=== PATIENT | male | born 1945 | race Caucasian/White ===

== ENCOUNTER → 2016-09-07 | Outpatient (CLI) | payer OTHER ==
[~2016-09-07] MED LIST: AMOX250C3 PO; CALC600T37 PO; CHOL100010 PO
[2016-09-07 17:21] LABS: BASO % 0.2 %; BASO ABS # 0.01 K/uL (0-0.2); COMPLETE YES; EOS % 0.5 %; HEMATOCRIT 43.1 % (42-52); IG% 0.2 %; LYMPH % 29.5 %; LYMPH ABS # 1.29 K/uL (1.2-3.4); MEAN CELL VOLUME 86.5 fL (80-100); MEAN CORPUSCULAR HEMOGLOBIN 28.1 pg (25-34); MEAN CORPUSCULAR HGB CONC 32.5 g/dl (32-36); MEAN PLATELET VOLUME 11.5 fL (7.4-10.4); MONO % 25.6 %; PLATELET COUNT 155 K/uL (130-400); RED BLOOD COUNT 4.98 M/uL (4.7-6.1); WHITE BLOOD COUNT 4.37 K/uL (4.8-10.8)
[2016-09-07 19:17] LABS: ALT/SGPT 26 U/L (12-78); AST/SGOT 23 U/L (15-37); BLOOD UREA NITROGEN 17 mg/dl (7-18); BUN/CREATININE RATIO 17.1 (10-20); CALCIUM 8.9 mg/dl (8.5-10.1); CARBON DIOXIDE 25 mmol/L (21-32); CHLORIDE 113 mmol/L (98-107); GLUCOSE 93 mg/dl (70-99); POTASSIUM 3.6 mmol/L (3.5-5.1); SODIUM 145 mmol/L (136-145)
[2016-09-07 19:22] LABS: ALB/GLOB RATIO 1.2 (0.9-2); ALKALINE PHOSPHATASE 79 U/L (45-117); PROSTATE SPECIFIC ANTIGEN 0.369 ng/ml (0.000-4.000)
== END | disposition home or self-care (01) ==
LOC: C.LABPBG 11:53
PROVIDERS: ATTEND Internal Medicine
DX: R03.0 Elevated blood-pressure reading, without diagnosis of hypertension (principal)

== ENCOUNTER → 2016-09-08 | Outpatient (CLI) | payer OTHER ==
--- NOTE | 2016-09-08 12:18 | DIAGNOSTIC IMAGING REPORT ---
LUMBAR SPINE 5 VIEWS CLINICAL HISTORY: Low back pain. FINDINGS: 5 views of the lumbar spine are compared to a study dated 12/04/2013. The skeletal structures are osteopenic. A moderate compression deformity of L1, a mild superior endplate compression deformity of L3, and a moderate to severe compression deformity of T11 are unchanged from 2014. A mild superior endplate compression deformity L2 and a moderate compression deformity of L4 are age indeterminant but new from 2014. No large retropulsed fragments are seen. Vertebral body alignment is maintained. The transverse and spinous processes are grossly intact. There is no evidence of spondylolysis. Facet arthropathy is present in the mid to lower lumbar region. There is mild to moderate lumbar levocurvature. Small anterior osteophytic are seen throughout. Mild to moderate degenerative disc space narrowing is seen at all levels. The bony pelvis is intact as visualized. Sclerotic change is seen in the sacroiliac joints. A right hip arthroplasty is partially visualized. Cholecystectomy clips are noted. There is a nonobstructed abdominal bowel gas pattern. IMPRESSION: 1. There are age-indeterminant compression deformities of L2 and L4 which are new from 2014. Clinical correlation will be required. 2. Additional chronic compression deformities are described above. 3. Osteopenia, spondylotic change, and scoliosis as above. Dictated: 09/08/2016 12:04 PM Transcribed: 09/08/2016 12:17 PM [email or web address] Electronically signed by: Pelon Taylor M.D. 09/08/2016 12:22 PM Dictated Date/Time: 09/08/2016 12:04 PM
== END | disposition home or self-care (01) ==
LOC: C.RADBC 11:23
PROVIDERS: ATTEND Internal Medicine
DX: M81.0 Age-related osteoporosis without current pathological fracture (principal); M85.88 Other specified disorders of bone density and structure, other site

== ENCOUNTER → 2016-09-17 | Outpatient (CLI) | payer OTHER ==
--- NOTE | 2016-09-17 10:27 | DIAGNOSTIC IMAGING REPORT ---
ORBIT RADIOGRAPHS 3 VIEWS HISTORY: pre-MRI screening. COMPARISON: None. FINDINGS: There are no metallic radiopaque foreign bodies identified within the orbits. IMPRESSION: No metallic radiopaque foreign bodies identified within the orbits. Electronically signed by: Chandana Redding M.D. 09/17/2016 10:25 AM Dictated Date/Time: 09/17/2016 10:24 AM
--- NOTE | 2016-09-17 12:25 | DIAGNOSTIC IMAGING REPORT ---
MRI OF THE LUMBAR SPINE WITHOUT IV CONTRAST CLINICAL HISTORY: Acute on chronic low back pain. Right lower extremity radiculopathy. COMPARISON STUDY: Radiographs of lumbar spine dated 09/08/2016. CT scan of the abdomen and pelvis dated 09/07/2013. TECHNIQUE: MRI of the lumbar spine is performed utilizing various T1 and T2-weighted sequences in the axial and sagittal planes. IV contrast was not administered for this examination. FINDINGS: Lumbar spine: Severe compression deformities of T11 and L1 as well as a mild compression deformity of L3 are similar is appearance to the [address] scan. There is only mild marrow edema within the L1 vertebral body, likely related to a Schmorl's node. There is a mild to moderate superior endplate compression fracture of L2 as well as a moderate compression fracture of L4. These are new from 2014 and both demonstrate significant marrow edema. No retropulsed fragments are identified. The transverse and spinous processes appear intact. There is no evidence of spondylolysis. Intervertebral discs: There is degenerative disc desiccation throughout the lumbar spine. Moderate loss of height is seen at L2-L3. Only mild loss of height is seen at the remaining lumbar levels. Spinal cord: The partially imaged spinal cord is normal in morphology and signal intensity. The conus medullaris terminates at the level of L1. The nerve roots of the cauda equina are normal in morphology. L1-L2: Unremarkable. L2-L3: There is a posterior disc bulge. In conjunction with hypertrophy of the ligamentum flavum this contribute to mild acquired compromise of the central canal. The minimum AP diameter measures 7 mm. There is mild bilateral subarticular stenosis. This may abut the exiting left L2 nerve root. The neural foramina are patent. Facet arthropathy is of no confluence. L3-L4: There is a minimal disc bulge eccentric to the left. There is mild compromise of the central canal, likely on a congenital basis. The minimum AP diameter measures 8 mm. There is mild to moderate right neural foraminal stenosis secondary to facet arthropathy. L4-L5: There is minimal posterior disc bulge. There is no significant acquired compromise of the central canal at this level. Facet arthropathy is of no consequence. The neural foramina are patent. L5-S1: The central canal and neural foramina are patent. Sacrum: The visualized sacrum is normal in morphology and signal intensity. Soft tissues: There is fatty atrophy of the paraspinous and iliopsoas musculature. There is cortical atrophy of the visualized kidneys. Numerous renal cysts are partially imaged bilaterally. The retroperitoneal structures are otherwise grossly unremarkable but incompletely assessed. IMPRESSION: 1. A mild to moderate superior endplate compression fracture of L2 and a moderate compression fracture of L4 are age indeterminant but new from studies performed in 2014. There is significant marrow edema identified in both vertebral bodies suggesting these are acute to subacute. These are likely osteoporotic, and there is no clear evidence of underlying marrow replacement process or destructive bony lesion. Clinical correlation will be required. No retropulsed fragments are identified. 2. Chronic compression fractures of T11, L1, and L3 are similar to previous. Dictated: 09/17/2016 11:43 AM Transcribed: 09/17/2016 12:24 PM [email or web address] Electronically signed by: Pelon Taylor M.D. 09/17/2016 12:26 PM Dictated Date/Time: 09/17/2016 11:43 AM
== END | disposition home or self-care (01) ==
LOC: C.MRI 09:11
PROVIDERS: ATTEND Internal Medicine
DX: M54.5 Low back pain (principal); Z13.5 Encounter for screening for eye and ear disorders

== ENCOUNTER → 2016-11-30 | Outpatient (CLI) | payer OTHER | END | disposition home or self-care (01) | LOC: C.LABPBG 14:25 | PROVIDERS: ATTEND Internal Medicine | DX: Z11.59 Encounter for screening for other viral diseases (principal); E29.1 Testicular hypofunction; E55.9 Vitamin D deficiency, unspecified ==

== ENCOUNTER → 2016-12-11 | Outpatient (CLI) | payer OTHER ==
[2016-12-11 17:49] LABS: URINE APPEARANCE TURBID (CLEAR); URINE BILIRUBIN NEG (NEG); URINE EPITHELIAL CELL AUTO 0-5 /lpf (0-5); URINE NITRITE NEG (NEG); URINE SPECIFIC GRAVITY 1.026 (1.000-1.030); UROBILINOGEN NEG (NEG); ZZUR CULT IF INDIC CLEAN CATCH NO
[2016-12-11 17:50] LABS: MANUAL MICROSCOPIC REQUIRED? NO; REVIEW REQ? NO; URINE COLOR DK YELLOW
== END | disposition home or self-care (01) ==
LOC: C.LABSPEC 13:51
PROVIDERS: ATTEND Physician Assistant
DX: R35.0 Frequency of micturition (principal)

== ENCOUNTER → 2016-12-24 | Outpatient (CLI) | payer OTHER ==
[2016-12-24 17:45] LABS: URINE APPEARANCE CLEAR (CLEAR); URINE BILIRUBIN NEG (NEG); URINE COLOR YELLOW; URINE EPITHELIAL CELL AUTO 0-5 /lpf (0-5); URINE NITRITE NEG (NEG); URINE SPECIFIC GRAVITY 1.025 (1.000-1.030); UROBILINOGEN NEG (NEG); ZZUR CULT IF INDIC CLEAN CATCH NO
[2016-12-24 17:54] LABS: MANUAL MICROSCOPIC REQUIRED? NO; REVIEW REQ? NO
== END | disposition home or self-care (01) ==
LOC: C.LABPBG 14:40
PROVIDERS: ATTEND Physician Assistant
DX: R31.29 Other microscopic hematuria (principal)

== ENCOUNTER → 2017-12-13 | Outpatient (CLI) | payer OTHER ==
[2017-12-13 16:59] LABS: BASO % 0.2 %; BASO ABS # 0.01 K/uL (0-0.2); HEMATOCRIT 40.7 % (42-52); HEMOGLOBIN 13.6 g/dL (14.0-18.0); IG# 0.01 K/uL (0.00-0.02); LYMPH % 35.8 %; LYMPH ABS # 1.45 K/uL (1.2-3.4); MEAN CELL VOLUME 83.9 fL (80-100); MEAN CORPUSCULAR HGB CONC 33.4 g/dl (32-36); MEAN PLATELET VOLUME 11.8 fL (7.4-10.4); MONO % 24.4 %; MONO ABS # 0.99 K/uL (0.11-0.59); NEUT % 39.4 %; NEUT ABS # 1.59 K/uL (1.4-6.5); PLATELET COUNT 130 K/uL (130-400); RED CELL DISTRIBUTION WIDTH CV 13.9 % (11.5-14.5); RED CELL DISTRIBUTION WIDTH SD 42.2 fL (36.4-46.3); WHITE BLOOD COUNT 4.05 K/uL (4.8-10.8)
[2017-12-13 17:34] LABS: ALBUMIN 3.7 gm/dl (3.4-5.0); ALKALINE PHOSPHATASE 59 U/L (45-117); ALT/SGPT 22 U/L (12-78); AST/SGOT 23 U/L (15-37); BLOOD UREA NITROGEN 22 mg/dl (7-18); CALCIUM 8.4 mg/dl (8.5-10.1); CARBON DIOXIDE 20 mmol/L (21-32); CHOLESTEROL 97 mg/dl (0-200); CREATININE 1.01 mg/dl (0.60-1.40); GLUCOSE 78 mg/dl (70-99); LDL CHOLESTEROL CALCULATED 42 mg/dl; POTASSIUM 3.7 mmol/L (3.5-5.1); SODIUM 140 mmol/L (136-145); TOTAL PROTEIN 7.6 gm/dl (6.4-8.2)
== END | disposition home or self-care (01) ==
LOC: C.LABPBG 14:21
PROVIDERS: ATTEND Internal Medicine
DX: M81.0 Age-related osteoporosis without current pathological fracture (principal); E29.1 Testicular hypofunction; D64.9 Anemia, unspecified; N20.0 Calculus of kidney; E55.9 Vitamin D deficiency, unspecified; R82.90 Unspecified abnormal findings in urine

== ENCOUNTER 2019-07-15 10:30 | Inpatient (IN) ==
[2019-07-15] MEDS ORDERED: ALBUT/IPRATROP 3MG/0.5MG NEB 3 ML VIAL NEB ONE (10:39)
[2019-07-15] MEDS ORDERED: SODIUM CHLORIDE 0.9% 500 ML IV ONE (10:40)
[2019-07-15] MEDS ORDERED: ONDANSETRON INJ 2 MG/ML 2 ML VIAL IV STA (10:53)
--- NOTE | 2019-07-15 11:00 | Emergency Department Note ---
History of Present Illness General Chief complaint: Confusion Source: patient, EMS, RN notes reviewed and old records reviewed Mode of arrival: EMS Limitations: altered mental status History of Present Illness Provider complaint: Aletred mental status Onset (ago): day(s) 1 Location: head Associated symptoms: + cough and + fever/chills Treatments prior to arrival: other (oxygen 6 L) This is a 73-year-old male who presents emergency department brought in by EMS over concerns of the patient is altered. The patient's family reports that he has been running a fever along with a productive cough for the past several days. Upon EMSs arrival the patient was found to have a pulse ox of 89%. He was placed on 6 L of oxygen. He has no known contacts of coronavirus and has not been traveling. The patient knows his name but otherwise appears confused. He has no complaints and denies any chest pain or abdominal pain. He is also vomiting upon arrival to the emergency department bile. Home Medications Home Medications Medication Instructions Recorded Confirmed Type tamsulosin 0.4 mg capsule 0.4 mg PO QAM cap 12/12/18 07/15/19 History acyclovir 200 mg PO BID 07/15/19 07/15/19 History atovaquone 1,500 mg PO DAILY 07/15/19 07/15/19 History calcium carbonate-vitamin D3 1 cap PO BID 07/15/19 07/15/19 History [Calcium 600 + D(3)] enasidenib [Idhifa] 100 mg PO QAM 07/15/19 07/15/19 History fluconazole 200 mg PO QAM 07/15/19 07/15/19 History magnesium oxide 400 mg PO QAM 07/15/19 07/15/19 History metoprolol tartrate 12.5 mg PO BID 07/15/19 07/15/19 History Allergies Allergy/AdvReac Type Severity Reaction Status Date / Time Bactrim Allergy Unknown RASH Verified 04/06/16 11:37 sulfamethoxazole Allergy Unknown RASH Verified 07/15/19 12:26 trimethoprim Allergy Unknown RASH Verified 07/15/19 12:26 Past Med/Surg History Medical History Anemia BPH with urinary obstruction Diverticular disease Gross hematuria Hypertension Internal hemorrhoid (Resolved) Kidney stones Osteoporosis (Chronic) SNHL (sensorineural hearing loss) Testicular cancer (Resolved) Tubular adenoma of colon Vertebral compression fracture (Resolved) Vitamin D deficiency Surgical History History of cholecystectomy History of colonoscopy History of herniorrhaphy BL INGUINAL History of orchiectomy History of total hip arthroplasty RIGHT JOSE Status post orchiopexy Family History Mother Breast cancer Family/Other Colorectal cancer Brother Dementia Heart disease Cancer Laryngeal Father Stroke Social History Preferred Language: Wolof Communication Ability: Effective Visual Impairment: No Limitations Hearing Ability: Hard of Hearing Manager Education Required: No Beliefs That Will Affect Care: None marital status: Current Living Situation: Spouse current occupational status: employed current occupation: Retail Feels Safe at Home: Yes Smoking Status: Never smoker Second Hand Exposure: No ; Hx Alcohol Use: No Hx Substance Use: No Review of Systems A total of 10 systems reviewed and were otherwise negative Physical Exam Vital Signs Vital Signs - 24 hr 07/15/19 10:38 07/15/19 10:39 07/15/19 10:54 Temperature 37.7 C H Temperature Source Oral Rectal Temperature - Monitor Source 2 Pulse Rate 90 Pulse Rate [Radial] 123 H Pulse Rate from SpO2 Sensor Respiratory Rate 20 18 Respiratory Effort / Characteristics Non-Labored Spontaneous Non-Labored Spontaneous Respiratory Depth Normal Respiratory Pattern Regular Blood Pressure 142/81 H Blood Pressure Mean 101 Blood Pressure Position Sitting Pulse Oximetry 95 95 96 Oxygen Delivery Method Room Air Room Air Room Air Sepsis Recent Fever Within 48 Hours Yes Sepsis New/Unexplained Change in Mental Status No Sepsis Action Taken by Nursing No Action Required 07/15/19 11:00 07/15/19 11:32 07/15/19 12:00 Temperature Temperature Source Rectal Temperature - Monitor Source 2 Pulse Rate 89 98 H 129 H Pulse Rate [Radial] Pulse Rate from SpO2 Sensor 120 H 142 H Respiratory Rate 22 22 25 H Respiratory Effort / Characteristics Respiratory Depth Respiratory Pattern Blood Pressure 143/87 H 111/73 116/78 Blood Pressure Mean 103 86 108 Blood Pressure Position Pulse Oximetry 100 100 94 Oxygen Delivery Method Nebulizer Nebulizer Room Air Sepsis Recent Fever Within 48 Hours Sepsis New/Unexplained Change in Mental Status Sepsis Action Taken by Nursing 07/15/19 13:00 07/15/19 13:10 Temperature Temperature Source Rectal Temperature - Monitor Source 2 38.6 C H Pulse Rate 134 H Pulse Rate [Radial] Pulse Rate from SpO2 Sensor 136 H Respiratory Rate 19 Respiratory Effort / Characteristics Respiratory Depth Respiratory Pattern Blood Pressure 157/76 H Blood Pressure Mean 103 Blood Pressure Position Pulse Oximetry 96 Oxygen Delivery Method Sepsis Recent Fever Within 48 Hours Sepsis New/Unexplained Change in Mental Status Sepsis Action Taken by Nursing GENERAL: Patient is a healthy-appearing well-nourished male HEAD: Normocephalic atraumatic EYES: Ocular movements intact pupils equal and react to light OROPHARYNX mucous membranes are moist no exudates present no erythema or edema present NECK: Supple no nuchal rigidity CHEST: Good equal expansion LUNGS: Clear and equal to auscultation CARDIAC: Normal S1 and S2 ABDOMEN: Soft nontender no guarding BACK: No CVA tenderness EXTREMITIES: No pain upon palpation normal muscle strength in all groups no clubbing cyanosis or edema NEURO: Patient is following commands and knows who he is. Does not know where or date Cranial Nerves 2-12 grossly intact Course Administered Medications Ioversol (Optiray 320 125ml) 120 ml IV ONCE PRN PRN Reason: Interaction Checking Stop: 07/19/19 12:20 Last Admin: 07/15/19 12:21 Dose: 120 ml Documented by: [id number] Discontinued Medications Albuterol (Duoneb) 12 ml NEB ONE ONE Stop: 07/15/19 10:40 Last Admin: 07/15/19 10:53 Dose: 12 ml Documented by: [id number] Sodium Chloride (Nss) 500 mls @ 999 mls/hr IV .Q31M ONE Stop: 07/15/19 11:10 Last Infusion: 07/15/19 12:45 Dose: 0 mls/hr Documented by: [id number] Admin: 07/15/19 11:58 Dose: 999 mls/hr Documented by: [id number] Sodium Chloride (Nss 1000ml) 1,000 mls @ 999 mls/hr IV .Q1H1M ONE Stop: 07/15/19 12:50 Last Admin: 07/15/19 11:58 Dose: 999 mls/hr Documented by: [id number] Piperacillin Sod/Tazobactam Sod (Zosyn) 4.5 gm in 120 mls @ 240 mls/hr IV NOW ONE Stop: 07/15/19 13:11 Last Admin: 07/15/19 13:23 Dose: 240 mls/hr Documented by: [id number] Daptomycin 300 mg/ Syringe 6 mls @ 3 mls/min IV NOW ONE; Protocol Stop: 07/15/19 12:43 Last Admin: 07/15/19 13:07 Dose: 3 mls/min Documented by: [id number] Acetaminophen (Ofirmev) 1,000 mg in 100 mls @ 400 mls/hr IV NOW STA Stop: 07/15/19 13:12 Last Infusion: 07/15/19 13:32 Dose: 0 mls/hr Documented by: [id number] Admin: 07/15/19 13:15 Dose: 400 mls/hr Documented by: [id number] Ondansetron HCl (Zofran) 4 mg IV NOW STA Stop: 07/15/19 10:54 Last Admin: 07/15/19 12:00 Dose: 4 mg Documented by: [id number] Potassium Chloride (Klor-Con M20) 40 meq PO NOW STA Stop: 07/15/19 12:05 Last Admin: 07/15/19 12:55 Dose: 40 meq Documented by: [id number] Critical Care Time I have personally spent greater than 90 minutes of critical care time in the direct management of this patient. This includes bedside care, interpretation of diagnostic studies, and testing, discussion with consultants, patient, and family members, and other required patient management activities. This 90 minutes is in excess of all separately billable procedures. Medical Decision Making Differential Diagnosis Infection, dehydration, metabolic abnormality, hypo/hyperglycemia, electrolyte disturbance, anemia, hypoxia, cardiac sources, intracerebral event, toxicologic, neurologic, as well as other pathologies. Medical Records Attestation: I reviewed the patient's medical records. Home Medications Current Medication List: was personally reviewed by me Laboratory Data Attestation: I reviewed the patient's lab results. Result diagrams: 07/15/19 11:56 07/15/19 11:56 Lab Results 07/15/19 07/15/19 07/15/19 Range/Units 10:45 11:49 11:56 WBC RBC Hgb POC Hgb 12.9 L (14.0-18.0) g/dl Hct POC Hct 38 L (42-52) % MCV MCH MCHC RDW Std Deviation RDW Coeff of Cecilia Plt Count MPV Immature Gran % (Auto) Neut % (Auto) Lymph % (Auto) Petroleum % (Auto) Eos % (Auto) Baso % (Auto) Immature Gran # (Auto) Neut # (Auto) Lymph # (Auto) Petroleum # (Auto) Eos # (Auto) Baso # (Auto) Absolute Nucleated RBC Nucleated RBC % (auto) Neutrophils % (Manual) Band Neutrophils % Lymphocytes % (Manual) Prolymphocyte % Reactive Lymphs % (Man) Monocytes % (Manual) Eosinophils % (Manual) Basophils % (Manual) Metamyelocytes % (Man) Myelocytes % (Man) Promyelocytes % (Man) Blast Cells % (Manual) Plasma Cell % (Manual) Other Cells % Nucleated RBC % Neutrophils # (Manual) Band Neutrophils # Total Absolute Neuts Lymphocytes # (Manual) Prolymphocyte # Reactive Lymphs # Total Abs Lymphocytes Monocytes # (Manual) Eosinophils # (Manual) Basophils # (Manual) Metamyelocytes # (Man) Myelocytes # (Manual) Promyelocytes # (Man) Blast Cells # (Man) Plasma Cell # (Manual) Other Cells # Nucleated RBCs # (Man) Hypersegmented Neuts Hyposegmented Neuts Hypogranular Neuts Large Granular Lymphs # Lrg Granular Lymphs Hairy Cells Smudge Cells Toxic Granulation Toxic Vacuolation Dohle Bodies Bertin Rods Platelet Estimate Hypogranular Platelets Clumped Platelets Giant Platelets Platelet Satelliting RBC Morphology Polychromasia Hypochromasia Poikilocytosis Basophilic Stippling Anisocytosis Microcytosis Macrocytosis Spherocytes Pappenheimer Bodies Sickle Cells Target Cells Tear Drop Cells Ovalocytes Stomatocytes Vela-Montegut Bodies Echinocytes Acanthocytes (Spur) Rouleaux RBC Agglutinates Schistocytes RBC Morph Comment Sezary Cell POC Sodium 141 (135-144) mmol/L Sodium 141 (136-145) mmol/L POC Potassium 3.3 (3.3-5.0) mmol/L Potassium 3.1 L (3.5-5.1) mmol/L POC Chloride 104 (101-112) mmol/L Chloride 108 H (98-107) mmol/L Carbon Dioxide 24 (21-32) mmol/L POC Total CO2 25 (24-31) mEq/l Anion Gap 9.0 (3-11) POC Anion Gap 17.0 (16-25) mmol/L POC BUN 19 H (7-18) mg/dl BUN 20 H (7-18) mg/dl Creatinine 1.34 (0.6-1.4) mg/dl POC Creatinine 1.0 (0.6-1.3) mg/dl Est Cr Clr Drug Dosing 37.5 ml/min Est GFR ( Amer) 60.1 Est GFR (Non-Af Amer) 51.8 BUN/Creatinine Ratio 15.3 (10-20) Glucose 174 H (70-99) mg/dl POC Glucose (other) 142 H (70-99) mg/dl Calcium 7.6 L (8.5-10.1) mg/dl POC Ioniz Calcium Adriana 0.96 L (1.12-1.32) mmol/l Total Bilirubin 2.6 H (0.2-1) mg/dl AST 22 (15-37) U/L ALT 17 (12-78) U/L Alkaline Phosphatase 109 (45-117) U/L Total Creatine Kinase 65 (39-308) U/L CK-MB (CK-2) < 1.0 (0.5-3.6) ng/ml CK/CKMB % Calc TNP Troponin I 0.033 (0-0.045) ng/ml NT-Pro-B Natriuret Pep 4093 H (0-900) pg/ml Total Protein 6.7 (6.4-8.2) gm/dl Albumin 2.7 L (3.4-5.0) gm/dl Globulin 4.0 (2.5-4.0) gm/dl Albumin/Globulin Ratio 0.7 L (0.9-2) Procalcitonin (0-0.5) ng/ml TSH 1.570 (0.300-4.500) uIu/ml Influenza Type A (PCR) Neg for Influ A (Neg) Influenza Type B (PCR) Neg for Influ B (Neg) 07/15/19 07/15/19 07/15/19 Range/Units 11:56 11:56 11:56 WBC Cancelled 30.22 H* RBC Cancelled 3.18 L Hgb Cancelled 11.7 L POC Hgb (14.0-18.0) g/dl Hct Cancelled 35.1 L POC Hct (42-52) % MCV Cancelled 110.4 H MCH Cancelled 36.8 H MCHC Cancelled 33.3 RDW Std Deviation Cancelled 60.3 H RDW Coeff of Cecilia Cancelled 15.2 H Plt Count Cancelled 229 MPV Cancelled 9.7 Immature Gran % (Auto) Cancelled 0.6 Neut % (Auto) Cancelled 74.2 Lymph % (Auto) Cancelled 11.9 Petroleum % (Auto) Cancelled 13.2 Eos % (Auto) Cancelled 0.0 Baso % (Auto) Cancelled 0.1 Immature Gran # (Auto) Cancelled 0.17 H Neut # (Auto) Cancelled 22.42 H Lymph # (Auto) Cancelled 3.61 H Petroleum # (Auto) Cancelled 3.99 H Eos # (Auto) Cancelled 0.00 Baso # (Auto) Cancelled 0.03 Absolute Nucleated RBC Cancelled Nucleated RBC % (auto) Cancelled Neutrophils % (Manual) Cancelled Band Neutrophils % Cancelled Lymphocytes % (Manual) Cancelled Prolymphocyte % Cancelled Reactive Lymphs % (Man) Cancelled Monocytes % (Manual) Cancelled Eosinophils % (Manual) Cancelled Basophils % (Manual) Cancelled Metamyelocytes % (Man) Cancelled Myelocytes % (Man) Cancelled Promyelocytes % (Man) Cancelled Blast Cells % (Manual) Cancelled Plasma Cell % (Manual) Cancelled Other Cells % Cancelled Nucleated RBC % Cancelled Neutrophils # (Manual) Cancelled Band Neutrophils # Cancelled Total Absolute Neuts Cancelled Lymphocytes # (Manual) Cancelled Prolymphocyte # Cancelled Reactive Lymphs # Cancelled Total Abs Lymphocytes Cancelled Monocytes # (Manual) Cancelled Eosinophils # (Manual) Cancelled Basophils # (Manual) Cancelled Metamyelocytes # (Man) Cancelled Myelocytes # (Manual) Cancelled Promyelocytes # (Man) Cancelled Blast Cells # (Man) Cancelled Plasma Cell # (Manual) Cancelled Other Cells # Cancelled Nucleated RBCs # (Man) Cancelled Hypersegmented Neuts Cancelled Hyposegmented Neuts Cancelled Hypogranular Neuts Cancelled Large Granular Lymphs Cancelled # Lrg Granular Lymphs Cancelled Hairy Cells Cancelled Smudge Cells Cancelled Toxic Granulation Cancelled Toxic Vacuolation Cancelled Dohle Bodies Cancelled Bertin Rods Cancelled Platelet Estimate Cancelled Hypogranular Platelets Cancelled Clumped Platelets Cancelled Giant Platelets Cancelled Platelet Satelliting Cancelled RBC Morphology Cancelled Polychromasia Cancelled Hypochromasia Cancelled Poikilocytosis Cancelled Basophilic Stippling Cancelled Anisocytosis Cancelled Microcytosis Cancelled Macrocytosis Cancelled Present Spherocytes Cancelled Pappenheimer Bodies Cancelled Sickle Cells Cancelled Target Cells Cancelled Tear Drop Cells Cancelled Ovalocytes Cancelled Stomatocytes Cancelled Vela-Montegut Bodies Cancelled Echinocytes Cancelled Acanthocytes (Spur) Cancelled Rouleaux Cancelled RBC Agglutinates Cancelled Schistocytes Cancelled RBC Morph Comment Cancelled Sezary Cell Cancelled POC Sodium (135-144) mmol/L Sodium (136-145) mmol/L POC Potassium (3.3-5.0) mmol/L Potassium (3.5-5.1) mmol/L POC Chloride (101-112) mmol/L Chloride (98-107) mmol/L Carbon Dioxide (21-32) mmol/L POC Total CO2 (24-31) mEq/l Anion Gap (3-11) POC Anion Gap (16-25) mmol/L POC BUN (7-18) mg/dl BUN (7-18) mg/dl Creatinine (0.6-1.4) mg/dl POC Creatinine (0.6-1.3) mg/dl Est Cr Clr Drug Dosing ml/min Est GFR ( Amer) Est GFR (Non-Af Amer) BUN/Creatinine Ratio (10-20) Glucose (70-99) mg/dl POC Glucose (other) (70-99) mg/dl Calcium (8.5-10.1) mg/dl POC Ioniz Calcium Adriana (1.12-1.32) mmol/l Total Bilirubin (0.2-1) mg/dl AST (15-37) U/L ALT (12-78) U/L Alkaline Phosphatase (45-117) U/L Total Creatine Kinase (39-308) U/L CK-MB (CK-2) (0.5-3.6) ng/ml CK/CKMB % Calc Troponin I (0-0.045) ng/ml NT-Pro-B Natriuret Pep (0-900) pg/ml Total Protein (6.4-8.2) gm/dl Albumin (3.4-5.0) gm/dl Globulin (2.5-4.0) gm/dl Albumin/Globulin Ratio (0.9-2) Procalcitonin 0.35 (0-0.5) ng/ml TSH (0.300-4.500) uIu/ml Influenza Type A (PCR) (Neg) Influenza Type B (PCR) (Neg) Imaging Data Radiologist's Impression: [facility], [place] [phone] XRay Report Patient: MARY VILLALOBOS HAdmit Date: 07/15/19 MR#: [id number]: [address] Acct ID:[id number]: Date: [address] [place] [address] Zip: [place] [id number] Age: 73Location: ED Sex: M Room/Bed: Att Phy:Diagnosis: CONFUSION Jessi Phy: Dustin Butt MDService Date: 07/15/19 Fam Phy:Interpreting Phy: Chandana Redding MD Admit Phy: Ordering Phy: Joni Lynne MD cc: ~ XR chest 1V portable HISTORY: weakness COMPARISON: Chest 04/30/2018. FINDINGS: Interval development of a small left pleural effusion and left basilar densities. The heart remains mildly enlarged. No pneumothorax. The right lung is clear. No evidence for pulmonary edema. IMPRESSION: Interval development of a small left pleural effusion and left basilar den sities. ACT 112: Negative or not required by law. Electronically signed by: Chandana Redding M.D. 07/15/2019 11:09 AM Dictated: 07/15/19 1108 Transcribed: 07/15/19 1108 [facility], [place] [phone] CT Scan Report Patient: MARY VILLALOBOS HAdmit Date: 07/15/19 MR#: [id number]: [address] Acct ID:[id number]: Date: [address] [place] [address] Zip: [place] [address] Age: 73Location: ED Sex: M Room/Bed: Att Phy:Diagnosis: CONFUSION Jessi Phy: Dustin Butt MDService Date: 07/15/19 Fam Phy:Interpreting Phy: Chandana Redding MD Admit Phy: Ordering Phy: Joni Lynne MD cc: ~ HEAD CT NONCONTRAST CT DOSE: 921.40 mGy.cm HISTORY: Altered mental status. TECHNIQUE: Multiaxial CT images of the head were performed without the use of intravenous contrast. Automated exposure control was utilized for this study. A dose lowering technique was utilized adhering to the principles of ALARA. Comparison: None. Findings: The paranasal sinuses and mastoid air cells are clear. The calvarium and skull base are intact. There is no mass, hematoma, midline shift, acute infarct. White matter hypodensity is nonspecific but suggestive of microvascular ischemic change. The ventricles and sulci demonstrate mild age-related involutional changes. Impression: No acute intracranial abnormality. Atrophy and microvascular ischemic changes. ACT 112: Negative or not required by law. Electronically signed by: Chandana Redding M.D. 07/15/2019 12:22 PM Dictated: 07/15/19 1218 Transcribed: 07/15/19 1218 Patient: MARY VILLALOBOS HAdmit Date: 07/15/19 MR#: [id number]: [address] Acct ID:[id number]: Date: [address] [place] [address] Zip: [place] [address] Age: 73Location: ED Sex: M Room/Bed: Att Phy:Diagnosis: CONFUSION Jessi Phy: Dustin Butt MDService Date: 07/15/19 [facility] Phy:Interpreting Phy: Chandana Redding MD Admit Phy: Ordering Phy: Joni Lynne MD cc: ~ ABDOMEN AND PELVIS CT WITH IV CONTRAST CT DOSE: HISTORY: Pt c/o emesis TECHNIQUE: Multiaxial CT images of the abdomen and pelvis were performed following the use of intravenous contrast. A dose lowering technique was utilized adhering to the principles of ALARA. COMPARISON STUDY: Abdomen and pelvis CT 04/30/2018. FINDINGS: Interval development of a moderate to large pericardial effusion and s mall bilateral pleural effusions. Please refer to the same day chest CT for further evaluation of the lung bases. Cholecystectomy. The liver, spleen, adrenal glands, and pancreas are unremarkable. Bilateral nephrolithiasis. No hydronephrosis. There are also multiple stones within the bilateral renal pelvis sees. This has progressed in the interval. A few hypodense lesions within the left kidney remains stable. No retroperitoneal lymphadenopathy. Normal caliber abdominal aorta. The bladder and pelvic structures are not well visualized due to the metallic artifact from the right hip prosthesis. Multiple compression deformities from T11 through L4 are again noted. Are likely old. The questionab le 2.5 cm lytic lesion within the L4 vertebral body also remains unchanged dating back to 2018 examination. Therefore is less likely to represent an aggressive lesion. The main portal vein is patent. The visualized bladder appears unremarkable. No dilated loops of bowel to suggest an obstruction. There are few nondilated fluid-filled loops of small bowel seen within the abdomen. However, no transition point identified. Mild thickening versus underdistention within the sigmoid colon and rectum. A few colonic diverticula. No evidence for diverticulitis. There is again noted asymmetric soft tissue thickening within the right seminal vesicle measuring up to 3 cm in thickness. This is indetermina te but remain stable. IMPRESSION: 1. Moderate to large pericardial effusion and small bilateral pleural effusions. Please refer to the same day chest CT for further evaluation of the lung bases. 2. Questionable thickening versus underdistention of the sigmoid colon and rectum. This could represent a low-grade grade proctocolitis. 3. No evidence for bowel obstruction. 4. Bilateral nephrolithiasis. No hydronephrosis. 5. No change in the chronic compression deformities within the lower thoracic a nd lumbar spine. 6. Stable 3 cm focal area of soft tissue thickening in the region of the right seminal vesicle. This is indeterminate but is present dating back to at least 2013. ACT 112: Negative or not required by law. Electronically signed by: Chandana Redding M.D. 07/15/2019 12:48 PM Dictated: 07/15/19 1235 Transcribed: 07/15/19 1235 [facility], [place] [phone] CT Scan Report Patient: MARY VILLALOBOS Date: 07/15/19 MR#: [id number]: [address] Acct ID:[id number]: [facility] Zip: [place] [address] Age: 73Location: ED Sex: M Room/Bed: Att Phy:Diagnosis: CONFUSION Jessi Phy: Dustin Butt MDService Date: 07/15/19 [facility] Phy:Interpreting Phy: Chandana Redding MD Admit Phy: Ordering Phy: Joni Lynne MD cc: ~ CHEST CTA for PULMONARY ARTERIES CT DOSE: 836.29 mGy.cm HISTORY: Cough. Fever. TECHNIQUE: Multiaxial CT images of the chest were performed following the intra venous administration of contrast to evaluate the pulmonary arteries. Maximal intensity projection images were also obtained. A dose lowering technique was utilized adhering to the principles of ALARA. COMPARISON STUDY: None. FINDINGS: Mild to moderate thoracic and upper lumbar spine compression deformities are likely old. Tortuous and normal caliber thoracic aorta with no evidence for dissection. Moderate to large pericardial effusion measuring a maximal thickness anteriorly of 2.7 cm. This results in mild mass effect along the heart. Developing cardiac tamponade cannot be excluded. Small left and trace right pleural effusions are noted. The majority of the bilateral lower lobe segmental and subsegmental pulmonary arteries are nondiagnostic due to motion artifact. However, the remaining pulmonary arteries show no filling defects to suggest pulmonary embolus. Please refer to the same day abdomen and pelvis CT for further evaluation of the abdominal structures. No mediastinal or hilar lymphadenopathy. Normal esophagus. No suspicious lytic are blastic osseous lesions. Old, healed left posterior rib fractures. The central airways are patent. No pneumothorax. Consolidation throughout the majority of the left lower lobe. This nonspecific but favors compressive atelectasis from the pleural effusion. A pneumonia could also have a similar appearance in the appropriate clinical setting. Small focal density within the base of the right middle lobe may also represent atelectasis. Consolidation within the right lower lobe posteriorly also favors compressive atelectasis. IMPRESSION: 1. No evidence for pulmonary embolus with limitations as described above. 2. Moderate to large pericardial effusion with associated mild mass effect along the heart. A developing cardiac tamponade cannot be excluded. Clinical correlation recommended. 3. Small left and trace right pleural effusions. 4. Bilateral lower lobe consolidation which favors compressive atelectasis from the pleural effusions. A pneumonia could also have a similar appearance in the appropriate clinical setting. ACT 112: Negative or not required by law. Electronically signed by: Chandana Redding M.D. 07/15/2019 12:35 PM Dictated: 07/15/19 1227 Transcribed: 07/15/19 1227 ECG Data Attestation: I personally reviewed and interpreted this ECG as follows: Indication: + altered mental status Rate (beats per minute): 123 Rhythm: + sinus tachycardia ECG [place]: + Normal ECG ST segments: no ST depression and no ST elevation ECG Findings: + Q waves (Inferior, anterior) Comparison ECG Date: from (02/07/2018) Change: the following changes noted (New anterior infarct) MDM Narrative "Cardiac monitoring: An order was placed for continuous cardiac monitoring. The monitor shows a rate of 120 with Sinus tachycardia rhythm. This is a 73-year-old male who presents to the emergency department with fever. The patient has had a stem cell transplant previously performed at [facility]. He has a white blood cell count here today of 30,000. The patient appears clinically dehydrated therefore he was given 30 mL's per kilogram of fluid. He was started on broad-spectrum antibiotics including Zosyn Levaquin and daptomycin. Because of the patient's complex medical history I did discuss the case with the oncologist on-call at [facility] who readily accepted the patient. Patient's CAT scan of his chest is concerning for pericardial effusion. I did discuss all these findings with the patient's . He has had no sick contacts and no recent travel. Family was in agreement with the treatment plan. Impression & Plan Fever, Acute myelogenous leukemia, Acute pericardial effusion Discharge Plan Visit Data Chief Complaint: Confusion ED Provider: Joni Lynne Discharge Problem: Fever, Acute myelogenous leukemia, Acute pericardial effusion Forms Stand Alone Forms: My [facility] Prescriptions Prescriptions: No Action tamsulosin 0.4 mg capsule 0.4 mg PO QAM RF: 0 fluconazole 200 mg tablet 200 mg PO QAM RF: 0 acyclovir 200 mg capsule 200 mg PO BID RF: 0 atovaquone 750 mg/5 mL suspension 1,500 mg PO DAILY RF: 0 metoprolol tartrate 25 mg tablet 12.5 mg PO BID RF: 0 Idhifa 100 mg tablet 100 mg PO QAM RF: 0 Calcium 600 + D(3) 600 mg calcium- 200 unit Capsule 1 cap PO BID RF: 0 magnesium oxide 400 mg magnesium Tablet 400 mg PO QAM RF: 0 Discharge Problem: Fever Qualifiers: Fever type: unspecified Qualified Code(s): R50.9 - Fever, unspecified Acute myelogenous leukemia Qualifiers: Leukemia Active/Remission status: without remission Qualified Code(s): C92.00 - Acute myeloblastic leukemia, not having achieved remission
--- NOTE | 2019-07-15 11:10 | XRay Report ---
XR chest 1V portable HISTORY: weakness COMPARISON: Chest 04/30/2018. FINDINGS: Interval development of a small left pleural effusion and left basilar densities. The heart remains mildly enlarged. No pneumothorax. The right lung is clear. No evidence for pulmonary edema. IMPRESSION: Interval development of a small left pleural effusion and left basilar densities. ACT 112: Negative or not required by law. Electronically signed by: Chandana Redding M.D. 07/15/2019 11:09 AM
[2019-07-15 11:40] LABS: Influenza A virus by PCR Neg for Influ A (Neg); Influenza B virus by PCR Neg for Influ B (Neg)
[2019-07-15] MEDS ORDERED: SODIUM CHLORIDE 0.9% 1000ML 1,000 ML IV ONE ×2 (11:50→14:14)
[2019-07-15 12:02] LABS: iSTAT Hemoglobin 12.9 g/dl (14.0-18.0); iSTAT Ionized Calcium 0.96 mmol/l (1.12-1.32); iSTAT Potassium 3.3 mmol/L (3.3-5.0)
[2019-07-15] MEDS ORDERED: POTASSIUM CHLORIDE 20 MEQ TABCR PO STA (12:04)
[2019-07-15] MEDS ORDERED: OPTIRAY 320 125ml IV PRN (12:21)
[2019-07-15 12:23] LABS: Alanine Aminotransferase 17 U/L (12-78); Albumin Level 2.7 gm/dl (3.4-5.0); Aspartate Aminotransferase 22 U/L (15-37); BUN Creatinine Ratio 15.3 (10-20); Blood Urea Nitrogen 20 mg/dl (7-18); Calcium 7.6 mg/dl (8.5-10.1); Carbon Dioxide 24 mmol/L (21-32); Chloride 108 mmol/L (98-107); Creatinine Clr Calc Pharmacy 37.5 ml/min; Est GFR (African American) 60.1; Est GFR (Non-African American) 51.8; Glucose 174 mg/dl (70-99); Potassium 3.1 mmol/L (3.5-5.1); Sodium 141 mmol/L (136-145)
--- NOTE | 2019-07-15 12:24 | CT Scan Report ---
HEAD CT NONCONTRAST CT DOSE: 921.40 mGy.cm HISTORY: Altered mental status. TECHNIQUE: Multiaxial CT images of the head were performed without the use of intravenous contrast. A utomated exposure control was utilized for this study. A dose lowering technique was utilized adheri ng to the principles of ALARA. Comparison: None. Findings: The paranasal sinuses and mastoid air cells are clear. The calvarium and skull base are int act. There is no mass, hematoma, midline shift, acute infarct. White matter hypodensity is nonspecifi c but suggestive of microvascular ischemic change. The ventricles and sulci demonstrate mild age-rela scotty involutional changes. Impression: No acute intracranial abnormality. Atrophy and microvascular ischemic changes. ACT 112: Negative or not required by law. Electronically signed by: Chandana Redding M.D. 07/15/2019 12:22 PM
[2019-07-15 12:33] LABS: Albumin Globulin Ratio 0.7 (0.9-2); Alkaline Phosphatase 109 U/L (45-117); Bilirubin,Total 2.6 mg/dl (0.2-1); Creatine Kinase 65 U/L (39-308); Creatine Kinase MB < 1.0 ng/ml (0.5-3.6); NT Pro B Type Natriuretic Pept 4093 pg/ml (0-900); Total Protein 6.7 gm/dl (6.4-8.2); Troponin I 0.033 ng/ml (0-0.045)
--- NOTE | 2019-07-15 12:36 | CT Scan Report ---
CHEST CTA for PULMONARY ARTERIES CT DOSE: 836.29 mGy.cm HISTORY: Cough. Fever. TECHNIQUE: Multiaxial CT images of the chest were performed following the intravenous administration of contrast to evaluate the pulmonary arteries. Maximal intensity projection images were also obtaine d. A dose lowering technique was utilized adhering to the principles of ALARA. COMPARISON STUDY: None. FINDINGS: Mild to moderate thoracic and upper lumbar spine compression deformities are likely old. To rtuous and normal caliber thoracic aorta with no evidence for dissection. Moderate to large pericardi al effusion measuring a maximal thickness anteriorly of 2.7 cm. This results in mild mass effect elen g the heart. Developing cardiac tamponade cannot be excluded. Small left and trace right pleural effu sions are noted. The majority of the bilateral lower lobe segmental and subsegmental pulmonary arteri es are nondiagnostic due to motion artifact. However, the remaining pulmonary arteries show no fillin g defects to suggest pulmonary embolus. Please refer to the same day abdomen and pelvis CT for furthe r evaluation of the abdominal structures. No mediastinal or hilar lymphadenopathy. Normal esophagus. No suspicious lytic are blastic osseous lesions. Old, healed left posterior rib fractures. The centra l airways are patent. No pneumothorax. Consolidation throughout the majority of the left lower lobe. This nonspecific but favors compressive atelectasis from the pleural effusion. A pneumonia could also have a similar appearance in the appropriate clinical setting. Small focal density within the base o f the right middle lobe may also represent atelectasis. Consolidation within the right lower lobe pos teriorly also favors compressive atelectasis. IMPRESSION: 1. No evidence for pulmonary embolus with limitations as described above. 2. Moderate to large pericardial effusion with associated mild mass effect along the heart. A develop ing cardiac tamponade cannot be excluded. Clinical correlation recommended. 3. Small left and trace right pleural effusions. 4. Bilateral lower lobe consolidation which favors compressive atelectasis from the pleural effusions . A pneumonia could also have a similar appearance in the appropriate clinical setting. ACT 112: Negative or not required by law. Electronically signed by: Chandana Redding M.D. 07/15/2019 12:35 PM
[2019-07-15 12:41] LABS: Hematocrit (blood only) 35.1 % (42-52); Hemoglobin 11.7 g/dL (14.0-18.0); Mean Corpuscular Hemoglobin 36.8 pg (25-34); Mean Corpuscular Hgb Conc 33.3 g/dL (32-36); Mean Corpuscular Volume 110.4 fL (80-100); Mean Platelet Volume 9.7 fL (7.4-10.4); Platelet Count 229 K/uL (130-400); RDW Coefficient of Variation 15.2 % (11.5-14.5); RDW Standard Deviation 60.3 fL (36.4-46.3); Red Blood Count 3.18 M/uL (4.7-6.1); White Blood Count 30.22 K/uL (4.8-10.8)
[2019-07-15] MEDS ORDERED: PIPERACILLIN/TAZOBACTAM 4.5 GM/120 ML BAG IV ONE (12:42)
[2019-07-15] MEDS ORDERED: PIPERACILL/TAZOBAC CONSULT ACTIVE PRN (12:42)
[2019-07-15] MEDS ORDERED: DAPTOmycin 300 MG in SYRINGE 0 ML IV ONE (12:42)
[2019-07-15] MEDS ORDERED: LEVOFLOXACIN/D5W 750 MG/150 ML BAG IV STA (12:42)
[2019-07-15] MEDS ORDERED: DAPTOMYCIN CONSULT ACTIVE PRN (12:42)
--- NOTE | 2019-07-15 12:49 | CT Scan Report ---
ABDOMEN AND PELVIS CT WITH IV CONTRAST CT DOSE: HISTORY: Pt c/o emesis TECHNIQUE: Multiaxial CT images of the abdomen and pelvis were performed following the use of intrave nous contrast. A dose lowering technique was utilized adhering to the principles of ALARA. COMPARISON STUDY: Abdomen and pelvis CT 04/30/2018. FINDINGS: Interval development of a moderate to large pericardial effusion and small bilateral pleura l effusions. Please refer to the same day chest CT for further evaluation of the lung bases. Cholecys tectomy. The liver, spleen, adrenal glands, and pancreas are unremarkable. Bilateral nephrolithiasis. No hydronephrosis. There are also multiple stones within the bilateral renal pelvis sees. This has p rogressed in the interval. A few hypodense lesions within the left kidney remains stable. No retroper itoneal lymphadenopathy. Normal caliber abdominal aorta. The bladder and pelvic structures are not we ll visualized due to the metallic artifact from the right hip prosthesis. Multiple compression deform ities from T11 through L4 are again noted. Are likely old. The questionable 2.5 cm lytic lesion withi n the L4 vertebral body also remains unchanged dating back to 2018 examination. Therefore is less lik idalia to represent an aggressive lesion. The main portal vein is patent. The visualized bladder appears unremarkable. No dilated loops of bowel to suggest an obstruction. There are few nondilated fluid-fi lled loops of small bowel seen within the abdomen. However, no transition point identified. Mild thic kening versus underdistention within the sigmoid colon and rectum. A few colonic diverticula. No evid ence for diverticulitis. There is again noted asymmetric soft tissue thickening within the right semi nal vesicle measuring up to 3 cm in thickness. This is indeterminate but remain stable. IMPRESSION: 1. Moderate to large pericardial effusion and small bilateral pleural effusions. Please refer to the same day chest CT for further evaluation of the lung bases. 2. Questionable thickening versus underdistention of the sigmoid colon and rectum. This could represe nt a low-grade grade proctocolitis. 3. No evidence for bowel obstruction. 4. Bilateral nephrolithiasis. No hydronephrosis. 5. No change in the chronic compression deformities within the lower thoracic and lumbar spine. 6. Stable 3 cm focal area of soft tissue thickening in the region of the right seminal vesicle. This is indeterminate but is present dating back to at least 2013. ACT 112: Negative or not required by law. Electronically signed by: Chandana Redding M.D. 07/15/2019 12:48 PM
[2019-07-15 12:54] LABS: Basophils # (auto) 0.03 K/uL (0-0.2); Basophils % (auto) 0.1 %; Immature Granulocytes # (auto) 0.17 K/uL (0.00-0.02); Immature Granulocytes % (auto) 0.6 %; Lymphocytes # (auto) 3.61 K/uL (1.2-3.4); Lymphocytes % (auto) 11.9 %; Macrocytosis Present; Monocytes # (auto) 3.99 K/uL (0.11-0.59); Monocytes % (auto) 13.2 %; Neutrophils # (auto) 22.42 K/uL (1.4-6.5); Neutrophils % (auto) 74.2 %
[2019-07-15] MEDS ORDERED: ACETAMINOPHEN 1,000 MG/100 ML VIAL IV STA (12:58)
[2019-07-15 13:39] LABS: Appearance Urine Turbid (Clear); Bacteria Urine Automated Negative (Negative); Blood Urine 3+ (Negative); Color Urine Dark Yellow; Epithelial Cell Urine Auto 20-30 /lpf (0-5); Glucose Urine UA Negative (Negative); Ketones Urine Trace (Negative); Leukocyte Esterase Urine Trace (Negative); Nitrite Urine Negative (Negative); Protein Urine 1+ (Negative); RBC Urine Automated >30 /hpf (0-4); Specific Gravity Urine > 1.045 (1.000-1.030); Urobilinogen Urine Negative (Negative)
[2019-07-15 13:43] LABS: Bilirubin Urine Negative (Negative); Ictotest Urine Negative (Negative)
[2019-07-15 13:50] LABS: Mucus Urine Present (None Prsent)
[2019-07-15 14:04] LABS: Uric Acid Crystals Urine Present (None Prsent)
--- NOTE | 2019-07-15 14:57 | Emergency Department Note ---
ED Visit Note I received this patient at change of shift signout from Dr. Lynne. Please see his note for initial history and physical exam. The patient is a [age]-year-old male who presented to the emergency department for an acute febrile illness. The patient has a history of leukemia and is being treated with chemotherapy. The patient was found to have abnormalities on his chest x-ray. CT the chest was performed as well as CT the abdomen and pelvis. The patient was found to have a very significant pericardial effusion. Initially his vital signs were stable. He also was treated with IV antibiotics and IV fluids for empiric therapy for the febrile illness. The patient started to have low blood pressure and I was asked to evaluate the patient. The patient is awake and alert. He has no specific symptoms but his blood pressure did not improve after 2 L of normal saline solution. Currently the patient is scheduled to be transferred to [facility]. A bed is available in the ICU however transportation is not available for over an hour. The trip to [facility] would be approximately 2-1/2 hours after that time. I am not sure if I am comfortable with the patient going via ground transport with a pericardial effusion which now appears to be developing tamponade physiology. He was treated with further IV hydration but then on reevaluation his blood pressure only improved minimally. For this reason I discussed the case with the ICU attending at [facility] Dr. Monet. She states that they are raul dy for the patient upon his arrival. For this reason I decided the patient would be best served going by air transport to shorten the transport time and not to delay further any possible procedures the patient may require upon arrival such as pericardial window or further procedures. I discussed this with the patient and his significant other. They are agreeable at this time given my findings. 1510: I discussed this case with Dr. Rivers who is covering for the air medic command for the [employer] crew. Reviewed the patient's laboratory and radiographic studies to determine possible COVID exposure. 1600: I discussed this case with Dr. Jade, he is agreed with the echocardiogram to be done in the emergency department to evaluate for signs of tamponade. 1645: The patient was evaluated in the emergency department by the submarine element coordinator. A bedside echocardiogram did not reveal tamponade physiology however did show hyperdynamic cardiac activity which may point more towards a septic presentation rather than cardiac tamponade. It was felt the patient was stable for ground transfer 1655: I discussed this case with [facility] again as the patient is still preferring to be transferred to [facility]. 1715: I discussed this case with Adrianna who is on for the [facility] hospitalist group. They will evaluate the patient in the emergency department for further inpatient management at our facility. . : Fever Qualifiers: Fever type: unspecified Qualified Code(s): R50.9 - Fever, unspecified Acute myelogenous leukemia Qualifiers: Leukemia Active/Remission status: without remission Qualified Code(s): C92.00 - Acute myeloblastic leukemia, not having achieved remission
[2019-07-15] MEDS ORDERED: SODIUM CHLORIDE 0.9% 1000ML 500 ML IV ONE (17:02)
--- NOTE | 2019-07-15 17:48 | XCELERA ---
[id number] \\[id number]
--- NOTE | 2019-07-15 18:14 | Cardiology Consultation ---
Date of Consultation July 15, 2019 Assessment & Plan (1) Pericardial effusion: The etiology of the patient's effusion is not known with certainty, but given his history of malignancy would suspect this is related to his and mouth. Does have evidence of systemic infection and it is possible that this is related. However, the size of the effusion in the absence of hemodynamic embarrassment suggests that this is likely more chronic rather than acute. He does not have symptoms of a pericarditis. This is unlikely to be related to a connective tissue disorder or or trauma. I think infection and malignancy are the leading diagnoses. While he was hypotensive earlier today, I suspect this is more related to distributive shock rather than cardiac tamponade. He did not have features of tamponade on examination or by echocardiography. Currently he is normotensive and was actually hypertensive at the time of initial presentation. He did have fever during his stay in the emergency room and I suspect this was related to his transient hypotension. Given the size of the infusion, the presence of a pleural effusion and concerns over the malignant nature of the effusion, I have asked for an evaluation by thoracic surgery for possible surgical drainage. He will need to be monitored closely. If there is evidence of hemodynamic compromise at reassessment would be warranted. In the immediate term volume administration can be given. Percutaneous drainage could subsequently be accomplished if necessary. Generally, I would avoid diuresis, use of beta- blockers or other antihypertensive is in the presence of this effusion. 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 According to the patient and his who was present for today's interview, he began to feel poorly earlier today. His symptoms initially involve a cough. However, the states that once he was able to produce some phlegm his coughing stopped. This did not appear to be persistent feature of his presentation. Additionally, the patient did not endorse symptoms of breathing difficulty or have current symptoms of breathing difficulty. He did have a documented fever at home. His states that his temperature was 103 degrees Fahrenheit. This did produce some sense of confusion and dizziness and prompted emergency room evaluation. Patient complains of some back discomfort. This is a chronic problem for which she undergoes occasional injections. He did not report any symptoms of pain elsewhere. Again, he is not describing breathing difficulty. He did not describe any sense of palpitation. No pleuritic chest pain. No swelling in his lower extremities. His states that his feet have been read on occasion but he commonly sits in a chair for most of the day. He did not report any recent travel. Currently claims to be comfortable with the exception of feeling cold. It seems that his mentation waxes and wanes according to the presence of fever. Allergies Allergy/AdvReac Type Severity Reaction Status Date / Time Bactrim Allergy Unknown RASH Verified 04/06/16 11:37 sulfamethoxazole Allergy Unknown RASH Verified 07/15/19 12:26 trimethoprim Allergy Unknown RASH Verified 07/15/19 12:26 Home Medications Home Medications Medication Instructions Recorded Confirmed Type tamsulosin 0.4 mg capsule 0.4 mg PO QAM cap 12/12/18 07/15/19 History acyclovir 200 mg PO BID 07/15/19 07/15/19 History atovaquone 1,500 mg PO DAILY 07/15/19 07/15/19 History calcium carbonate-vitamin D3 1 cap PO BID 07/15/19 07/15/19 History [Calcium 600 + D(3)] enasidenib [Idhifa] 100 mg PO QAM 07/15/19 07/15/19 History fluconazole 200 mg PO QAM 07/15/19 07/15/19 History magnesium oxide 400 mg PO QAM 07/15/19 07/15/19 History metoprolol tartrate 12.5 mg PO BID 07/15/19 07/15/19 History Patient History Medical History Anemia BPH with urinary obstruction Diverticular disease Gross hematuria Hypertension Internal hemorrhoid (Resolved) Kidney stones Osteoporosis (Chronic) SNHL (sensorineural hearing loss) Testicular cancer (Resolved) Tubular adenoma of colon Vertebral compression fracture (Resolved) Vitamin D deficiency Surgical History History of cholecystectomy History of colonoscopy History of herniorrhaphy BL INGUINAL History of orchiectomy History of total hip arthroplasty RIGHT JOSE Status post orchiopexy Family History Mother Breast cancer Family/Other Colorectal cancer Brother Dementia Heart disease Cancer Laryngeal Father Stroke Social History Preferred Language: Georgian Communication Ability: Effective Visual Impairment: No Limitations Hearing Ability: Hard of Hearing Program Director Required: No Beliefs That Will Affect Care: None marital status: Current Living Situation: Spouse current occupational status: employed current occupation: Retail Feels Safe at Home: Yes Smoking Status: Never smoker Second Hand Exposure: No ; Hx Alcohol Use: No Hx Substance Use: No Review of Systems Review of Systems: All systems reviewed & are unremarkable except as noted in HPI & below Normally he is a sedentary individual. He is limited primarily by fatigue. He does have occasional episodes of dizziness. Apparently he did suffer a fall couple of days ago. He cannot recall the circumstances surrounding this fall but did result in an abrasion of the left arm. He contacted his regular physician who prescribed an antibiotic. Physical Exam Physical Exam: The patient is alert and oriented. He had rigors during my initial examination. He appeared chilled. He did appear ill but mentating appropriately. HEENT: Pupils are equal and reactive to light and accommodation. Extraocular movements are intact. The sclerae are anicteric. Neuro: Cranial nerves intact Neck: Patient's neck is supple. He has palpable carotid pulses bilaterally without bruits on auscultation. No thyromegaly. Perhaps 1 centimeter of jugular venous distention above the sternal angle Lungs: Clear to auscultation bilaterally. He has good air movement without use of accessory muscles. No rales wheezes or rhonchi. Cardiac: Heart demonstrates tachycardia. No murmurs. S1 and S2 appeared normal. No rubs. Pulses: The patient has palpable radial pulses bilaterally that are equal in intensity. There is no increased pulses paradoxus on exam Extremities: There was no evidence of hypoperfusion. There is no cyanosis or clubbing. There is no edema. Skin: I did not appreciate any rashes on examination today. He had a bandage on his left forearm. Results & Data ([facility]) Vital Signs (Past 12 Hours) Vital Signs Temp Pulse Pulse Resp BP Pulse Ox 07/15/19 15:00 116 H 23 96/58 L 96 07/15/19 14:45 114 H 14 86/54 L 96 07/15/19 14:35 116 H 18 98/55 L 96 07/15/19 14:30 120 H 16 78/55 L 95 07/15/19 14:19 126 H 24 87/55 L 94 07/15/19 14:11 125 H 22 80/55 L 94 07/15/19 14:06 125 H 21 82/61 L 07/15/19 14:05 126 H 26 H 77/52 L 07/15/19 14:00 130 H 21 79/50 L 07/15/19 13:45 130 H 8 L 07/15/19 13:30 135 H 26 H 146/63 H 07/15/19 13:00 134 H 19 157/76 H 96 07/15/19 12:00 129 H 25 H 116/78 94 07/15/19 11:32 98 H 22 111/73 100 07/15/19 11:00 89 22 143/87 H 100 07/15/19 10:54 123 H 18 96 07/15/19 10:39 95 07/15/19 10:38 37.7 C H 90 20 142/81 H 95 Laboratory Results Abnormal Lab Results 07/15/19 07/15/19 07/15/19 10:45 11:49 11:56 WBC RBC Hgb POC Hgb 12.9 L Hct POC Hct 38 L MCV MCH MCHC RDW Std Deviation RDW Coeff of Cecilia Plt Count MPV Immature Gran % (Auto) Neut % (Auto) Lymph % (Auto) [place] % (Auto) Eos % (Auto) Baso % (Auto) Immature Gran # (Auto) Neut # (Auto) Lymph # (Auto) [place] # (Auto) Eos # (Auto) Baso # (Auto) Absolute Nucleated RBC Nucleated RBC % (auto) Neutrophils % (Manual) Band Neutrophils % Lymphocytes % (Manual) Prolymphocyte % Reactive Lymphs % (Man) Monocytes % (Manual) Eosinophils % (Manual) Basophils % (Manual) Metamyelocytes % (Man) Myelocytes % (Man) Promyelocytes % (Man) Blast Cells % (Manual) Plasma Cell % (Manual) Other Cells % Nucleated RBC % Neutrophils # (Manual) Band Neutrophils # Total Absolute Neuts Lymphocytes # (Manual) Prolymphocyte # Reactive Lymphs # Total Abs Lymphocytes Monocytes # (Manual) Eosinophils # (Manual) Basophils # (Manual) Metamyelocytes # (Man) Myelocytes # (Manual) Promyelocytes # (Man) Blast Cells # (Man) Plasma Cell # (Manual) Other Cells # Nucleated RBCs # (Man) Hypersegmented Neuts Hyposegmented Neuts Hypogranular Neuts Large Granular Lymphs # Lrg Granular Lymphs Hairy Cells Smudge Cells Toxic Granulation Toxic Vacuolation Dohle Bodies Bertin Rods Platelet Estimate Hypogranular Platelets Clumped Platelets Giant Platelets Platelet Satelliting RBC Morphology Polychromasia Hypochromasia Poikilocytosis Basophilic Stippling Anisocytosis Microcytosis Macrocytosis Spherocytes Pappenheimer Bodies Sickle Cells Target Cells Tear Drop Cells Ovalocytes Stomatocytes [place] Bodies Echinocytes Acanthocytes (Spur) Rouleaux RBC Agglutinates Schistocytes RBC Morph Comment Sezary Cell POC Sodium 141 Sodium 141 POC Potassium 3.3 Potassium 3.1 L POC Chloride 104 Chloride 108 H Carbon Dioxide 24 POC Total CO2 25 Anion Gap 9.0 POC Anion Gap 17.0 POC BUN 19 H BUN 20 H Creatinine 1.34 POC Creatinine 1.0 Est Cr Clr Drug Dosing 37.5 Est GFR ( Amer) 60.1 Est GFR (Non-Af Amer) 51.8 BUN/Creatinine Ratio 15.3 Glucose 174 H POC Glucose (other) 142 H Calcium 7.6 L POC Ioniz Calcium Adriana 0.96 L Total Bilirubin 2.6 H AST 22 ALT 17 Alkaline Phosphatase 109 Total Creatine Kinase 65 CK-MB (CK-2) < 1.0 CK/CKMB % Calc TNP Troponin I 0.033 NT-Pro-B Natriuret Pep 4093 H Total Protein 6.7 Albumin 2.7 L Globulin 4.0 Albumin/Globulin Ratio 0.7 L Procalcitonin TSH 1.570 Urine Color Urine Appearance Urine pH Ur Specific [place] Urine Protein Urine Glucose (UA) Urine Ketones Urine Blood Urine Nitrite Urine Bilirubin Urine Urobilinogen Ur Leukocyte Esterase Urine WBC (Auto) Urine RBC (Auto) U Hyaline Cast (Auto) U Epithel Cells (Auto) Urine Bacteria (Auto) Urine Crystals Uric Acid Crystals Urine Mucus Influenza Type A (PCR) Neg for Influ A Influenza Type B (PCR) Neg for Influ B 07/15/19 07/15/19 07/15/19 11:56 11:56 11:56 WBC Cancelled 30.22 H* RBC Cancelled 3.18 L Hgb Cancelled 11.7 L POC Hgb Hct Cancelled 35.1 L POC Hct MCV Cancelled 110.4 H MCH Cancelled 36.8 H MCHC Cancelled 33.3 RDW Std Deviation Cancelled 60.3 H RDW Coeff of Cecilia Cancelled 15.2 H Plt Count Cancelled 229 MPV Cancelled 9.7 Immature Gran % (Auto) Cancelled 0.6 Neut % (Auto) Cancelled 74.2 Lymph % (Auto) Cancelled 11.9 [place] % (Auto) Cancelled 13.2 Eos % (Auto) Cancelled 0.0 Baso % (Auto) Cancelled 0.1 Immature Gran # (Auto) Cancelled 0.17 H Neut # (Auto) Cancelled 22.42 H Lymph # (Auto) Cancelled 3.61 H [place] # (Auto) Cancelled 3.99 H Eos # (Auto) Cancelled 0.00 Baso # (Auto) Cancelled 0.03 Absolute Nucleated RBC Cancelled Nucleated RBC % (auto) Cancelled Neutrophils % (Manual) Cancelled Band Neutrophils % Cancelled Lymphocytes % (Manual) Cancelled Prolymphocyte % Cancelled Reactive Lymphs % (Man) Cancelled Monocytes % (Manual) Cancelled Eosinophils % (Manual) Cancelled Basophils % (Manual) Cancelled Metamyelocytes % (Man) Cancelled Myelocytes % (Man) Cancelled Promyelocytes % (Man) Cancelled Blast Cells % (Manual) Cancelled Plasma Cell % (Manual) Cancelled Other Cells % Cancelled Nucleated RBC % Cancelled Neutrophils # (Manual) Cancelled Band Neutrophils # Cancelled Total Absolute Neuts Cancelled Lymphocytes # (Manual) Cancelled Prolymphocyte # Cancelled Reactive Lymphs # Cancelled Total Abs Lymphocytes Cancelled Monocytes # (Manual) Cancelled Eosinophils # (Manual) Cancelled Basophils # (Manual) Cancelled Metamyelocytes # (Man) Cancelled Myelocytes # (Manual) Cancelled Promyelocytes # (Man) Cancelled Blast Cells # (Man) Cancelled Plasma Cell # (Manual) Cancelled Other Cells # Cancelled Nucleated RBCs # (Man) Cancelled Hypersegmented Neuts Cancelled Hyposegmented Neuts Cancelled Hypogranular Neuts Cancelled Large Granular Lymphs Cancelled # Lrg Granular Lymphs Cancelled Hairy Cells Cancelled Smudge Cells Cancelled Toxic Granulation Cancelled Toxic Vacuolation Cancelled Dohle Bodies Cancelled Bertin Rods Cancelled Platelet Estimate Cancelled Hypogranular Platelets Cancelled Clumped Platelets Cancelled Giant Platelets Cancelled Platelet Satelliting Cancelled RBC Morphology Cancelled Polychromasia Cancelled Hypochromasia Cancelled Poikilocytosis Cancelled Basophilic Stippling Cancelled Anisocytosis Cancelled Microcytosis Cancelled Macrocytosis Cancelled Present Spherocytes Cancelled Pappenheimer Bodies Cancelled Sickle Cells Cancelled Target Cells Cancelled Tear Drop Cells Cancelled Ovalocytes Cancelled Stomatocytes Cancelled [place] Bodies Cancelled Echinocytes Cancelled Acanthocytes (Spur) Cancelled Rouleaux Cancelled RBC Agglutinates Cancelled Schistocytes Cancelled RBC Morph Comment Cancelled Sezary Cell Cancelled POC Sodium Sodium POC Potassium Potassium POC Chloride Chloride Carbon Dioxide POC Total CO2 Anion Gap POC Anion Gap POC BUN BUN Creatinine POC Creatinine Est Cr Clr Drug Dosing Est GFR ( Amer) Est GFR (Non-Af Amer) BUN/Creatinine Ratio Glucose POC Glucose (other) Calcium POC Ioniz Calcium Adriana Total Bilirubin AST ALT Alkaline Phosphatase Total Creatine Kinase CK-MB (CK-2) CK/CKMB % Calc Troponin I NT-Pro-B Natriuret Pep Total Protein Albumin Globulin Albumin/Globulin Ratio Procalcitonin 0.35 TSH Urine Color Urine Appearance Urine pH Ur Specific [place] Urine Protein Urine Glucose (UA) Urine Ketones Urine Blood Urine Nitrite Urine Bilirubin Urine Urobilinogen Ur Leukocyte Esterase Urine WBC (Auto) Urine RBC (Auto) U Hyaline Cast (Auto) U Epithel Cells (Auto) Urine Bacteria (Auto) Urine Crystals Uric Acid Crystals Urine Mucus Influenza Type A (PCR) Influenza Type B (PCR) 07/15/19 12:55 WBC RBC Hgb POC Hgb Hct POC Hct MCV MCH MCHC RDW Std Deviation RDW Coeff of Cecilia Plt Count MPV Immature Gran % (Auto) Neut % (Auto) Lymph % (Auto) [place] % (Auto) Eos % (Auto) Baso % (Auto) Immature Gran # (Auto) Neut # (Auto) Lymph # (Auto) [place] # (Auto) Eos # (Auto) Baso # (Auto) Absolute Nucleated RBC Nucleated RBC % (auto) Neutrophils % (Manual) Band Neutrophils % Lymphocytes % (Manual) Prolymphocyte % Reactive Lymphs % (Man) Monocytes % (Manual) Eosinophils % (Manual) Basophils % (Manual) Metamyelocytes % (Man) Myelocytes % (Man) Promyelocytes % (Man) Blast Cells % (Manual) Plasma Cell % (Manual) Other Cells % Nucleated RBC % Neutrophils # (Manual) Band Neutrophils # Total Absolute Neuts Lymphocytes # (Manual) Prolymphocyte # Reactive Lymphs # Total Abs Lymphocytes Monocytes # (Manual) Eosinophils # (Manual) Basophils # (Manual) Metamyelocytes # (Man) Myelocytes # (Manual) Promyelocytes # (Man) Blast Cells # (Man) Plasma Cell # (Manual) Other Cells # Nucleated RBCs # (Man) Hypersegmented Neuts Hyposegmented Neuts Hypogranular Neuts Large Granular Lymphs # Lrg Granular Lymphs Hairy Cells Smudge Cells Toxic Granulation Toxic Vacuolation Dohle Bodies Bertin Rods Platelet Estimate Hypogranular Platelets Clumped Platelets Giant Platelets Platelet Satelliting RBC Morphology Polychromasia Hypochromasia Poikilocytosis Basophilic Stippling Anisocytosis Microcytosis Macrocytosis Spherocytes Pappenheimer Bodies Sickle Cells Target Cells Tear Drop Cells Ovalocytes Stomatocytes [place] Bodies Echinocytes Acanthocytes (Spur) Rouleaux RBC Agglutinates Schistocytes RBC Morph Comment Sezary Cell POC Sodium Sodium POC Potassium Potassium POC Chloride Chloride Carbon Dioxide POC Total CO2 Anion Gap POC Anion Gap POC BUN BUN Creatinine POC Creatinine Est Cr Clr Drug Dosing Est GFR ( Amer) Est GFR (Non-Af Amer) BUN/Creatinine Ratio Glucose POC Glucose (other) Calcium POC Ioniz Calcium Adriana Total Bilirubin AST ALT Alkaline Phosphatase Total Creatine Kinase CK-MB (CK-2) CK/CKMB % Calc Troponin I NT-Pro-B Natriuret Pep Total Protein Albumin Globulin Albumin/Globulin Ratio Procalcitonin TSH Urine Color Dark Yellow Urine Appearance Turbid A Urine pH 5.0 Ur Specific [place] > 1.045 H Urine Protein 1+ H Urine Glucose (UA) Negative Urine Ketones Trace H Urine Blood 3+ H Urine Nitrite Negative Urine Bilirubin Negative Urine Urobilinogen Negative Ur Leukocyte Esterase Trace H Urine WBC (Auto) 5-10 H Urine RBC (Auto) >30 H U Hyaline Cast (Auto) 1-5 U Epithel Cells (Auto) 20-30 H Urine Bacteria (Auto) Negative Urine Crystals Not Reportable Uric Acid Crystals Present A Urine Mucus Present A Influenza Type A (PCR) Influenza Type B (PCR) Diagnostic Findings CT scan of the chest and pelvis demonstrated a moderate to large-sized pericardial effusion. Bilateral pleural effusions. No acute pulmonary process. Some nonspecific findings in the abdomen and pelvis. ECG Additional Comments: Sinus tachycardia with low voltage and electrical alternans. nonspecific ST and T-wave changes. PG Care Time/CCT Total # of Minutes Spent Total Time Spent with Patient: Total time spent is greater than 50% in coordination of care (as documented) at patient's floor/unit and/or counseling patient: Coding Level of Care Code 98811 Initial Inpt Care Lvl 3 Diagnoses Pericardial effusion I31.3
--- NOTE | 2019-07-15 18:26 | Electrocardiogram Report ---
Test Reason : Blood Pressure : / mmHG Vent. Rate : 123 BPM Atrial Rate : 123 BPM P-R Int : 138 ms QRS Dur : 068 ms QT Int : 308 ms P-R-T Axes : 051 -24 017 degrees QTc Int : 440 ms Poor data quality, interpretation may be adversely affected Sinus tachycardia Low voltage QRS Poor R wave progression, consider anterior SC vs. lead placement vs. LVH electrical alternans (mild) Abnormal ECG When compared with ECG of 07-FEB-2018 09:45, Vent. rate has increased BY 49 BPM T wave amplitude has decreased in Anterior leads Confirmed by Reyes Jade ([id number]) on 07/15/2019 6:25:41 PM Referred By: REFERRED SELF Confirmed By:Brayan Jade
--- NOTE | 2019-07-15 19:20 | History & Physical Report ---
Date of Service July 15, 2019 Assessment & Plan (1) Sepsis: with shock earlier as part of initial presentation Uncertain source. Was given approximately 3 L of fluid in the ICU, as well as 300 mg daptomycin, 750 mg levofloxacin, 4.5 g Zosyn -Differential fairly broad, although he has nonspecific appearance --Bacterial infection differentials seem to be reasonably low but certainly of high riskhe does not show signs or symptoms of pneumonia (he did have a cough last night but not ongoing and it sounds like that happens quite often, chest CT seems more consistent with effusions and atelectasis than infection, pro calcitonin less than 0.5), bacteremia seems possible given his suppressed immune system/chronic [id number], etc.blood cultures are pending, empiric antibiotics initiated (will defer to ICU for choices on ongoing antibiotic regimen), no urinary symptoms to suggest UTI, no skin findings to suggest cellulitis, diarrhea not worse or different than his usual so as to suggest C. difficile. In that respect for possible bacterial, I will defer to the ICU but would consider continuing empiric antibiotics for serial exams over the next 24 to 48 hours, allowing for potential differentials to develop or culture growth. --Viral infection seems quite probable. I have seen other cases of leukocytosis, fever, and malaise that with hindsight appeared to be a nondescript viral syndrome. His flu is negative. The transport team from [place] raised the question of COVID19, he does not have current "classic" risk factors, but even paying attention to the possibility of community spread, he has no known sick contacts, and while he has a fever, he has no ongoing co ugh/shortness of breath/characteristic lung findings on x-ray or CT, so it seems fairly unlikely in that respect. One could consider a bio fire swab to look for other viral etiologies, but the prior similar situations have been bio fire negative, and I suspect were from a mono-like virus --Septic appearance from the AML is certainly of concern as well, he appears to have stabilized right now, his dedenter was willing to see him in [place] but we are unable to get transport, and therefore I will ask for hematology consult here. Certainly the pericardial effusion is concerning to be related to AML until proven otherwise ---> Anticipate empiric antibiotics and fluid support, per ICU discretion (2) Pericardial effusion: No tamponade, concern AML related, cardiology has seen, thoracic surgery has evaluated films and will see with anticipation of likely a window (3) Acute myelogenous leukemia: Hematology consult given the concern that his septic appearance could be AML related (4) Hypokalemia: Replete per ICU protocol (5) Elevated serum creatinine: Almost certainly from being dehydrated, IV fluids (6) Dehydration: See above (7) Pleural effusion: Concern would be AML related, see above (8) Osteoporosis: (9) DVT prophylaxis: Per ICU (10) Discharge planning issues: Admit to ICU for now (11) Anemia: Appears to be fairly stable, his hemoglobin on 226 was 10.3 (12) Elevated brain natriuretic peptide (BNP) level: No clinical appearance of CHF, possibly related to the effusion, possibly related to age, possibly related to his elevated creatinine (13) Elevated bilirubin: Continue to follow closely, concern if this would relate to the AML. Check LDH (14) Hypoalbuminemia: As above, follow. History of Present Illness Chief Complaint: Fever and weakness Primary Care Provider: Dustin Butt MD Patient is a pleasant 73-year-old male, he is very fatigued, the history is partly from him but heavily from his and a little bit from his daughter on speaker phone. He has had a long journey with AML, having had the better part of 2 years consumed with management of this. During that time it sounds like he is gotten significantly weaker, has a degree of chronic diarrhea, and a degree of a chronic cough. He has been weaker over the last 5 to 7 days, having had 2 falls, one resulting in a skin tear in his left arm and one with bruised ribs (although it is not entirely clear, they may have been from the same fall), but at any rate he has been getting weaker and had a few falls. Otherwise he was getting around okay in his house with his walker. Last night he seemed okay, his does note that he had a bit of a coughing fit before bed, brought up some sputum, but after that seemed fine. He slept through the night only waking once or twice to void, absolutely no coughing through the night, seem to have slept well. This morning his noticed that he looked flushed, felt his head and he felt warm, she checked his temperature and it was 103. He was weak and reasonably lethargic, with absolutely no focal symptoms. They brought him to the ER for further evaluation and management. Here he has been given fluids, antibiotics, given his AML there was attempt to transfer him to [place], but because of his fever, while the physicians at [place] seem to have accepted him, transport was refused out of COVID19 concerns simply because of his fever. Patient himself is very little as far as focal complaints, he recalls feeling febrile, he notes that he feels weak. He had a coughing fit last night but has not coughed since, and the entire time I am in the room he does not cough once. He has no chest pain (save for the rib pain from his fall which is been going on for about 5 days), no shortness of breath, no upper abdominal pain, nausea or vomiting. His appetite has been reasonable this week, today he has not eaten much but that is because he has been in the ER all day, he is hungry. He has had no lower abdominal pain, he has diarrhea 2-3 episodes a day but that has been the case for quite a while and nothing is new different or worse about it. He has not had black or bloody stools. Only the fever today, not prior. No overt chills or sweats. His has been taking care of him, she has not been sick, his daughter who works at [employer] head, to help take care of him since Wednesday, she has not been sick. There have been no other sick contacts. He was just at [place] 2 weeks ago, I will ask that the most recent progress note get scanned into the chart, but of note his white count then was 6.72 hemoglobin 10.3 platelets 159 creatinine 0.94 albumin 3.6 total protein 6.8. At that time they were to continue him on Enasidenib 50mg daily, and were continuing to hold tacrolimus since it had been stopped in February. They wondered if he had mild [id number] but felt that he should continue to hold off on tacrolimus to allow continued GVL affect. They were planning on continuing to see him once every 2 weeks. In discussion with cardiology, echocardiogram did show effusion but no tamponade, in discussion with thoracic surgery, the concern is that the tampo nade is probably AML related, but should be easy to approach surgically. We were asked to admit to the ICU, I discussed the case with ICU attending prior to my seeing the patient. Allergies Allergy/AdvReac Type Severity Reaction Status Date / Time Bactrim Allergy Unknown RASH Verified 04/06/16 11:37 sulfamethoxazole Allergy Unknown RASH Verified 07/15/19 12:26 trimethoprim Allergy Unknown RASH Verified 07/15/19 12:26 Home Medications Home Medications Medication Instructions Recorded Confirmed Type tamsulosin 0.4 mg capsule 0.4 mg PO QAM cap 12/12/18 07/15/19 History acyclovir 200 mg PO BID 07/15/19 07/15/19 History atovaquone 1,500 mg PO DAILY 07/15/19 07/15/19 History calcium carbonate-vitamin D3 1 cap PO BID 07/15/19 07/15/19 History [Calcium 600 + D(3)] enasidenib [Idhifa] 100 mg PO QAM 07/15/19 07/15/19 History fluconazole 200 mg PO QAM 07/15/19 07/15/19 History magnesium oxide 400 mg PO QAM 07/15/19 07/15/19 History metoprolol tartrate 12.5 mg PO BID 07/15/19 07/15/19 History Past Med/Surg History Medical History Anemia BPH with urinary obstruction Diverticular disease Gross hematuria Hypertension Internal hemorrhoid (Resolved) Kidney stones Osteoporosis (Chronic) SNHL (sensorineural hearing loss) Testicular cancer (Resolved) Tubular adenoma of colon Vertebral compression fracture (Resolved) Vitamin D deficiency Surgical History History of cholecystectomy History of colonoscopy History of herniorrhaphy BL INGUINAL History of orchiectomy History of total hip arthroplasty RIGHT JOSE Status post orchiopexy Family History Mother Breast cancer Family/Other Colorectal cancer Brother Dementia Heart disease Cancer Laryngeal Father Stroke Social History Preferred Language: Divehi Communication Ability: Effective Visual Impairment: No Limitations Hearing Ability: Hard of Hearing Fruit Culler Required: No Beliefs That Will Affect Care: None marital status: Current Living Situation: Spouse current occupational status: employed current occupation: Retail Feels Safe at Home: Yes Smoking Status: Never smoker Second Hand Exposure: No ; Hx Alcohol Use: No Hx Substance Use: No Review of Systems Review of Systems: All systems reviewed & are unremarkable except as noted in HPI & below Physical Exam Physical Exam: General he is very fatigued, but he does wake up and converse and is oriented, he appears to be fatigued but no respiratory or pain distress. HEENTnormocephalic atraumatic mucous membranes are still dry despite IV fluids. His eyes have a little bit of thick mucus surrounding it, but show no true conjunctival erythema or exudate. Neck shows full range of motion Cardio is tachycardic no rubs murmurs or gallops Lungs are clear to auscultation bilaterally no rales rhonchi or wheezes, moderate spontaneous effort no accessory muscle use Abdomen is soft nondistended nontender no masses organomegaly Extremities show no cyanosis clubbing or edema no calf tenderness Skin shows mild amount of petechia lower extremities only no other rashes, no pallor, no icterus. He does have a skin tear on his left arm, it is now dressed, there is no tracking erythema. In discussion with nursing there was no real erythema surrounding it when she put the dressing on. She also noted that he had blanchable redness presacral which I was not able to personally observe. Neuro shows cranial nerves II through XII are grossly intact, he is diffusely weak but with no focal weakness. Motor and sensory appear to be equal and intact bilaterally without focal findings, but does have global weakness Mental status he is very fatigued so it is difficult to cosmetic chemist but he does seem to be oriented, with fair recent and remote recall. Musculoskeletal exam shows normal spinal alignment, no gross deformities. Results & Data Vital Signs (Past 12 Hours) Vital Signs Temp Pulse Pulse Resp BP Pulse Ox 07/15/19 17:45 86 18 104/70 93 07/15/19 17:30 115 H 20 101/68 94 07/15/19 17:15 121 H 21 113/67 95 07/15/19 17:00 119 H 22 119/69 96 07/15/19 16:45 123 H 18 106/70 96 07/15/19 16:31 19 118/66 95 07/15/19 16:30 15 120/66 96 07/15/19 16:15 97 H 18 97/62 L 96 07/15/19 16:00 116 H 20 91/64 L 96 07/15/19 15:45 103 H 18 94/62 L 96 07/15/19 15:42 77 14 104/67 96 07/15/19 15:00 116 H 23 96/58 L 96 07/15/19 14:45 114 H 14 86/54 L 96 07/15/19 14:35 116 H 18 98/55 L 96 07/15/19 14:30 120 H 16 78/55 L 95 07/15/19 14:19 126 H 24 87/55 L 94 07/15/19 14:11 125 H 22 80/55 L 94 07/15/19 14:06 125 H 21 82/61 L 07/15/19 14:05 126 H 26 H 77/52 L 07/15/19 14:00 130 H 21 79/50 L 07/15/19 13:45 130 H 8 L 07/15/19 13:30 135 H 26 H 146/63 H 07/15/19 13:00 134 H 19 157/76 H 96 07/15/19 12:00 129 H 25 H 116/78 94 07/15/19 11:32 98 H 22 111/73 100 07/15/19 11:00 89 22 143/87 H 100 07/15/19 10:54 123 H 18 96 07/15/19 10:39 95 07/15/19 10:38 99.9 F H 90 20 142/81 H 95 PG Care Time/CCT Total # of Minutes Spent Total Time Spent with Patient: Total time spent is greater than 50% in coordination of care (as documented) at patient's floor/unit and/or counseling patient: Coding Level of Care Code 88381 Initial Inpt Care Lvl 3 Diagnoses Sepsis A41.9 Pericardial effusion I31.3 Acute myelogenous leukemia C92.00 Leukemia Active/Remission status: without remission Hypokalemia E87.6 Elevated serum creatinine R79.89 Dehydration E86.0 Pleural effusion J90 Osteoporosis M80.80XD Osteoporosis type: other Presence of current pathological fracture: with current pathological fracture Encounter type: subsequent encounter Fracture healing: with routine healing DVT prophylaxis Z29.9 Discharge planning issues Z02.9 Anemia D64.9 Elevated brain natriuretic peptide (BNP) level R79.89 Elevated bilirubin R17 Hypoalbuminemia E88.09 (1) Acute myelogenous leukemia Leukemia Active/Remission status: without remission Qualified Code(s): C92.00 - Acute myeloblastic leukemia, not having achieved remission (2) Osteoporosis Osteoporosis type: other Presence of current pathological fracture: with current pathological fracture Encounter type: subsequent encounter Fracture healing: with routine healing Qualified Code(s): M80.80XD - Other osteoporosis with current pathological fracture, unspecified site, subsequent encounter for fracture with routine healing
--- NOTE | 2019-07-15 20:31 | Critical Care Consultation ---
Date of Consultation July 15, 2019 Assessment & Plan (1) Admitted to intensive care unit: Reason Critically Ill: 73-year-old male with severe sepsis with septic shock in the setting of unclear source at this point requiring close hemodynamic monitoring and further evaluation for possible reversible sources. Large pericardial effusion without immediate concern for tamponade. NEURO - * CAM ICU: POSITIVE * Altered mental status: * CT head unremarkable. * Likely metabolic encephalopathy in the setting of severe sepsis. * In the setting of fever with altered mental status and exam findings with concern for nuchal rigidity, and compromised immune system, patient warrants lumbar puncture for further evaluation. * consents to lumbar puncture via phone. * Will cover with broad-spectrum antibiotics for bacterial meningitis to include cefepime, vancomycin, ampicillin, acyclovir, and Decadron. * And review of patient's previous notes, it appears as though the patient has had fevers and confusion after prior treatments which have responded to administration of Decadron. * Continue to monitor for signs/symptoms of improvement with ongoing therapies/interventions. CARDIAC/VASCULAR - * Pericardial effusion: * Large pericardial effusion noted on CT. Confirmation with echocardiogram. Does not appear to be tamponade component at this point. * Dr. Russell did review the patient CT at home and feels as though he would be able to perform a pericardial window if necessary. * Will monitor CVP's after central line placement for any concern of vascular congestion to suggest worsening tamponade process. * Echo: Hyperdynamic with an EF of greater than 70. Pericardial effusion noted. No tamponade process appreciated. * EKG: Sinus tachycardia at [address]/T wave abnormalities noted. Poor quality EKG. QTc 440 ms. * Monitor on telemetry. RESPIRATORY - * Pleural effusions: * As with pericardial effusion, presumed malignant effusions. * In the setting of sepsis/fever of unknown source, proceed with thoracentesis for fluid evaluation and possible septic source. * consents to thoracentesis by phone. * CTA demonstrates atelectasis with pleural effusions without significant findings for consolidative process. GI/NUTRITION - * C. difficile positive: * Patient noted to have loose stools. * Recent changes antibiotics per . * C. difficile testing positive. * Noted to have proctitis on CT. * Question source for patient's current septic state. * Will treat with oral vancomycin via NG tube. * Prophylaxis: Famotidine RENAL/LYTES - * Hypokalemia: * Replete as necessary. * IVF: Normosol@125mL/hr. * Boluses as needed with close monitoring of CVP. - * Clark in place - Strict I&Os. ENDO - * No history of diabetes or thyroid disease. * BSGs per unit protocol. ISS --> gtt per unit policy. HEME - * Significant leukocytosis: * Question contribution of AML versus severe septic state. * Stable H&H at this time. * AML: * Currently treated at [facility]. Multiple rounds of chemotherapy previously. * History of bone marrow transplant. * Question worsening [id number]. * Appreciate oncology recommendations. ID - * Severe sepsis with septic shock: * Of unknown immediate source at this time. * Initially received daptomycin, Levaquin, and Zosyn in the emergency department. * With presentation and concerns for multiple possible underlying conditions including meningitis, will broaden antibiotic coverage. * Will change to cefepime, vancomycin, ampicillin, and acyclovir. * Thoracentesis without definitive findings. * Patient did test positive for C. difficile. * Will start on oral vancomycin at higher dosing secondary to severity of illness. * If patient's symptoms are related to this, certainly concerning. * Elevated lactate. * Will trend procalcitonin. * On initial presentation, the patient had fever of unknown origin with septic picture and symptoms including cough, fever, shortness of breath. * Because of these, and the patient's high risk for communicable disease spread, did order respiratory PCR for any possible underlying sources. * Nursing staff did speak with infection control who suggested placing the patient on isolation precaution pending evaluation and possible COVID-19 rule out. * Patient placed on airborne precautions. * Respiratory PCR without findings. Influenza negative. * Will discuss further testing as needed pending ongoing evaluation. LINES/IV ACCESS - * PIVs x2 * LEFT IJ * RIGHT radial A-line * Clark DVT PROPHYLAXIS - * Hold pending need for multiple procedures. * SCDs I have personally spent 60 minutes of critical care time in the direct management of this patient. This is a life/limb threatening event. This includes time spent evaluating patient, direct bedside care, chart review, placing orders, interpretation of diagnostic studies, discussion with consultants, patient, and family members, as well as other required patient management activities. This time is exclusive of all separately billable procedures, and teaching time and separate from and in addition to any other critical care service time. Thank you for allowing us to participate in the care of this patient. Please refer to my attending physician's documentation for any further recommendations. (2) Severe sepsis with septic shock: (3) Pleural effusion: (4) Pericardial effusion: (5) Dehydration: (6) Hypokalemia: (7) AML (acute myeloblastic leukemia): (8) History of recent chemotherapy: (9) AMS (altered mental status): Supervising Physician Co-Signing Physician Notes I was advised of this patient via telephone, I presented to the ICU to further care for the patient. Please see procedure notes for further details. Refer to my July 16, 2019 documentation for additional details. History of Present Illness Attending Physician: Alexander Calles, History of Present Illness Patient is an unfortunate 73-year-old male with a significant past medical history of AML who has undergone chemotherapy treatments over the past year and different forms and additionally underwent bone marrow transplant. He has had fluctuating symptoms of neutropenic fevers after chemotherapy treatments which have been worked up multiple times and during his course was found to be having a retained stone which was previously taken care of. In addition, he had a neutropenic fever with unknown source during a subsequent hospitalization. There has been concern of possible buoml-zcgqhc-eqtr disease symptoms, but immunosuppression was held off initially as the patient had been continued to do well despite his mild symptoms. Early in the morning, the patient had an episode of coughing fit. In the morning, the noticed the patient was warm to touch. He was complaining of some difficulty breathing. He was brought to the emergency department and during assessment, the patient was noted to have a fever as well as significant leukocytosis. The patient was noted to have a large pericardial effusion with possible concerns of tamponade. Patient was initially set to be transferred to [facility], however this was delayed secondary to inability of transportation. Bedside echocardiogram was performed which demonstrated pericardial effusion without concerning findings for tamponade at this point. Discussion was then to transfer the patient to [facility], however this was delayed as transportation requested rule out of COVID- 19 or other etiology for the patient's symptoms. Upon arrival in the ICU, the patient is awake and alert, but pleasantly confused. He does interact, but provides no real historical information. He is febrile tachycardic. He is normotensive. During evaluation, patient does flag as high risk for COVID-19 symptoms secondary to shortness of breath, fever, and cough. Patient has only traveled to [facility] and back with his last trip on 07/04. Nursing staff did reach out to infection prevention and control who apparently recommends isolation and airborne precautions and the patient. Case was reviewed with my attending physician and further evaluation and work-up to follow. Allergies Allergy/AdvReac Type Severity Reaction Status Date / Time Bactrim Allergy Unknown RASH Verified 04/06/16 11:37 sulfamethoxazole Allergy Unknown RASH Verified 07/15/19 12:26 trimethoprim Allergy Unknown RASH Verified 07/15/19 12:26 Home Medications Home Medications Medication Instructions Recorded Confirmed Type tamsulosin 0.4 mg capsule 0.4 mg PO QAM cap 12/12/18 07/15/19 History acyclovir 200 mg PO BID 07/15/19 07/15/19 History atovaquone 1,500 mg PO DAILY 07/15/19 07/15/19 History calcium carbonate-vitamin D3 1 cap PO BID 07/15/19 07/15/19 History [Calcium 600 + D(3)] enasidenib [Idhifa] 100 mg PO QAM 07/15/19 07/15/19 History fluconazole 200 mg PO QAM 07/15/19 07/15/19 History magnesium oxide 400 mg PO QAM 07/15/19 07/15/19 History metoprolol tartrate 12.5 mg PO BID 07/15/19 07/15/19 History Patient History Medical History Anemia BPH with urinary obstruction Diverticular disease Gross hematuria Hypertension Internal hemorrhoid (Resolved) Kidney stones Osteoporosis (Chronic) SNHL (sensorineural hearing loss) Testicular cancer (Resolved) Tubular adenoma of colon Vertebral compression fracture (Resolved) Vitamin D deficiency Surgical History History of cholecystectomy History of colonoscopy History of herniorrhaphy BL INGUINAL History of orchiectomy History of total hip arthroplasty RIGHT JOSE Status post orchiopexy Family History Mother Breast cancer Family/Other Colorectal cancer Brother Dementia Heart disease Cancer Laryngeal Father Stroke Social History Preferred Language: Faroese Communication Ability: Effective Visual Impairment: No Limitations Hearing Ability: Hard of Hearing Health Information Provider Required: No Beliefs That Will Affect Care: None marital status: Current Living Situation: Spouse current occupational status: employed current occupation: Retail Other Information That Helps Us Care for You: No Feels Safe at Home: Yes Safety Concerns: Feels Safe At This Time Smoking Status: Never smoker Second Hand Exposure: No ; Hx Alcohol Use: No Hx Substance Use: No Review of Systems Review of Systems: Unobtainable due to cognitive status Physical Exam Physical Exam: VITAL SIGNS - Vital signs and nursing notes were reviewed. GENERAL - 73-year-old male appearing his stated age who is in no acute distress. Pleasantly confused. HEAD - NC/AT. EYES - PERRL with EOMI bilaterally. Sclera anicteric. Palpebral conjunctiva pink and moist with no injection noted. EARS - No deformities of external structures noted on gross examination bilaterally. No pain elicited with palpation of the tragus bilaterally. NOSE - Midline and without cyanosis. No epistaxis or purulent drainage noted. Septum midline without deviation or septal hematoma noted. MOUTH/OROPHARYNX - Without perioral cyanosis. Buccal mucosa pink and dry. NECK - Nuchal rigidity noted. LUNGS - Chest wall symmetric without accessory muscle use, intercostals retractions, or central cyanosis. Normal vesicular breath sounds CTA B/L. No whe ezes, rales, or rhonchi appreciated. CARDIAC - RRR with S1/S2. No murmur, rubs, or gallops appreciated. ABDOMEN - Abdominal contour flat without pulsations or visible masses. BS normoactive all four quadrants. No tenderness, palpable masses, hepatosplenomegaly, or ascites noted. EXTREMITIES - No clubbing or peripheral cyanosis. No pretibial edema present. +3/5 radial and dorsalis pedis pulses palpated throughout. +5/5 strength noted in UE/LE bilaterally. NEUROLOGIC -cranial nerves II to XII grossly intact. No focal neurological deficits. Unable to participate in thorough exam. Results & Data ([place]) Vital Signs (Past 12 Hours) Vital Signs Temp Pulse Pulse Pulse Resp BP BP 07/15/19 19:52 39.7 C H 134 H 18 177/82 H 07/15/19 19:15 118 H 23 135/76 07/15/19 19:00 121 H 20 141/77 H 07/15/19 18:45 118 H 22 132/77 07/15/19 18:30 117 H 20 125/75 07/15/19 18:15 143/79 H 07/15/19 18:00 114 H 23 132/74 07/15/19 17:45 86 18 104/70 07/15/19 17:30 115 H 20 101/68 07/15/19 17:15 121 H 21 113/67 07/15/19 17:00 119 H 22 119/69 07/15/19 16:45 123 H 18 106/70 07/15/19 16:31 19 118/66 07/15/19 16:30 15 120/66 07/15/19 16:15 97 H 18 97/62 L 07/15/19 16:00 116 H 20 91/64 L 07/15/19 15:45 103 H 18 94/62 L 07/15/19 15:42 77 14 104/67 07/15/19 15:30 37.8 C H 07/15/19 15:00 116 H 23 96/58 L 07/15/19 14:45 114 H 14 86/54 L 07/15/19 14:35 116 H 18 98/55 L 07/15/19 14:30 120 H 16 78/55 L 07/15/19 14:19 126 H 24 87/55 L 07/15/19 14:11 125 H 22 80/55 L 07/15/19 14:06 125 H 21 82/61 L 07/15/19 14:05 126 H 26 H 77/52 L 07/15/19 14:00 130 H 21 79/50 L 07/15/19 13:45 130 H 8 L 07/15/19 13:30 135 H 26 H 146/63 H 07/15/19 13:00 134 H 19 157/76 H 07/15/19 12:00 129 H 25 H 116/78 07/15/19 11:32 98 H 22 111/73 07/15/19 11:00 89 22 143/87 H 07/15/19 10:54 123 H 18 07/15/19 10:39 07/15/19 10:38 37.7 C H 90 20 142/81 H Pulse Ox 07/15/19 19:52 93 07/15/19 19:15 94 07/15/19 19:00 95 07/15/19 18:45 94 07/15/19 18:30 94 07/15/19 18:15 95 07/15/19 18:00 95 07/15/19 17:45 93 07/15/19 17:30 94 07/15/19 17:15 95 07/15/19 17:00 96 07/15/19 16:45 96 07/15/19 16:31 95 07/15/19 16:30 96 07/15/19 16:15 96 07/15/19 16:00 96 07/15/19 15:45 96 07/15/19 15:42 96 07/15/19 15:30 07/15/19 15:00 96 07/15/19 14:45 96 07/15/19 14:35 96 07/15/19 14:30 95 07/15/19 14:19 94 07/15/19 14:11 94 07/15/19 14:06 07/15/19 14:05 07/15/19 14:00 07/15/19 13:45 07/15/19 13:30 07/15/19 13:00 96 07/15/19 12:00 94 07/15/19 11:32 100 07/15/19 11:00 100 07/15/19 10:54 96 07/15/19 10:39 95 07/15/19 10:38 95 Coding Level of Care Code Critical Care 1st 30-74 mins Diagnoses Admitted to intensive care unit Z78.9 Severe sepsis with septic shock A41.9; R65.21 Pleural effusion J90 Pericardial effusion I31.3 Dehydration E86.0 Hypokalemia E87.6 AML (acute myeloblastic leukemia) C92.00 History of recent chemotherapy AMS (altered mental status) R41.82 Time Spent (min) 60
[2019-07-15] MEDS ORDERED: ICU PROTOCOL FOR HYPERGLYCEMIA PRN (20:34)
[2019-07-15] MEDS ORDERED: VANCOMYCIN CONSULT ACTIVE PRN (20:51)
[2019-07-15] MEDS ORDERED: ACETAMINOPHEN 1,000 MG/100 ML VIAL IV PRN (20:56)
[2019-07-15] MEDS ORDERED: PIPERACILLIN/TAZOBACTAM 4.5 GM in DEXTROSE 5% 100 ML IV SCH (21:00)
[2019-07-15] MEDS: NORMOSOL-R 1,000 ML IV SCH (21:15)
[2019-07-15] MEDS ORDERED: VANCOMYCIN HCL 1,750 MG in SODIUM CHLORIDE 0.9% 500 ML IV ONE (21:30)
[2019-07-15 21:50] LABS: INR 1.2 (0.9-1.1); Prothrombin Time 12.9 Seconds (9.0-12.0)
[2019-07-15] MEDS: CALCIUM 600MG + VIT D 400 IU TAB PO SCH (22:36)
[2019-07-15] MEDS: METOPROLOL TARTRATE 25 MG TAB PO SCH (22:36)
[2019-07-15 22:42] LABS: Adenovirus PCR Not Detected (NotDetected); Bordetella parapertussis PCR Not Detected (NotDetected); Bordetella pertussis PCR Not Detected (NotDetected); Coronavirus 229E PCR Not Detected (NotDetected); Coronavirus HKU1 PCR Not Detected (NotDetected); Coronavirus NL63 PCR Not Detected (NotDetected); Coronavirus OC43PCR Not Detected (NotDetected); Human Metapneumovirus PCR Not Detected (NotDetected); Influenza A PCR Not Detected (NotDetected); Influenza B PCR Not Detected (NotDetected); Parainfluenza Virus 1 PCR Not Detected (NotDetected); Parainfluenza Virus 2 PCR Not Detected (NotDetected); Parainfluenza Virus 3 PCR Not Detected (NotDetected); Parainfluenza Virus 4 PCR Not Detected (NotDetected); Respiratory Syncytial VirusPCR Not Detected (NotDetected); Rhinovirus/Enterovirus PCR Not Detected (NotDetected)
[2019-07-15 22:43] LABS: Chlamydia pneumoniae PCR Not Detected (NotDetected); Mycoplasma pneumoniae PCR Not Detected (NotDetected)
[2019-07-15] MEDS ORDERED: METOPROLOL TARTRATE 1 MG/ML VIAL IV ONE (23:03)
[2019-07-15] MEDS ORDERED: fentaNYL citrate 100 MCG/2 ML VIAL IV STA (23:05)
[2019-07-15] MEDS ORDERED: RAPID SEQUENCE INDUCTION BAG ONE (23:19)
[2019-07-16] MEDS ORDERED: LIDOCAINE HCL 1% 20 ML VIAL ONE (00:08)
[2019-07-16 01:09] LABS: Calcium 6.1 mg/dl (8.5-10.1); Creatinine Clr Calc Pharmacy 42.3 ml/min; Est GFR (African American) 67.3; Potassium 2.8 mmol/L (3.5-5.1)
[2019-07-16] MEDS ORDERED: CALCIUM GLUCONATE 10% 1,000 MG in SODIUM CHLORIDE 0.9% 50 ML IV STA ×2 (01:15→01:17)
[2019-07-16 01:20] LABS: Albumin Pleural Fluid 1.6 g/dl; Glucose Pleural Fluid 127 mg/dl
[2019-07-16] MEDS: DEXAMETHASONE SOD PHOSPHATE 10 MG in SYRINGE 0 ML IV SCH ×3 (01:30→08:11)
[2019-07-16] MEDS: ACYCLOVIR SOD 650 MG in DEXTROSE 5% 100 ML IV SCH ×2 (01:32→08:12)
[2019-07-16] MEDS: AMPICILLIN 2,000 MG in SODIUM CHLOR 0.9% AD-VAN 100 ML IV SCH ×4 (01:33→08:13)
[2019-07-16] MEDS: FAMOTIDINE 20 MG in SYRINGE 3 ML IV SCH ×3 (01:34→21:02)
[2019-07-16 01:35] LABS: Appearance Pleural Fluid CLOUDY; Color Pleural Fluid RED; Lymphocytes, Fluid 28 %; Neutrophils, Fluid 9 %; RBC Pleural Fluid (A) 31000 /uL; Source Pleural Fluid LEFT LUNG; WBC Pleural Fluid (A) 475 /uL
[2019-07-16] MEDS: ACYCLOVIR 200 MG CAP PO SCH ×2 (01:35→21:05)
[2019-07-16 01:36] LABS: Amylase Pleural Fluid 14 U/L; Eosinophils, Fluid 0 %; LDH Pleural Fluid 114 U/L; Mono,Macrophage,Mesothelial 63 %; Total Protein Pleural Fluid 2.8 g/dl; Triglyceride Pleural Fluid 27 mg/dl
[2019-07-16] MEDS: POTASSIUM CHLORIDE / WTR 20 MEQ/100 ML PLCT IV SCH ×4 (01:38→08:10)
[2019-07-16 02:06] LABS: Cdiff Antigen Positive; Cdiff Toxin A+B Positive Cdiff Toxin (Negative)
[2019-07-16] MEDS ORDERED: STAT IV Infusion **Titration per Protocol STA ×2 (04:38→22:42)
[2019-07-16] MEDS ORDERED: NORMOSOL-R 500 ML IV ONE ×4 (04:38→17:35)
[2019-07-16] MEDS: NORMOSOL-R 1,000 ML IV SCH ×2 (04:50→08:11)
[2019-07-16] MEDS: NOREPINEPHRINE BIT INJ 8 MG in DEXTROSE 5% 500 ML IV SCH ×2 (04:51→21:06)
[2019-07-16 04:56] LABS: Hematocrit (blood only) 31.8 % (42-52); Hemoglobin 10.6 g/dL (14.0-18.0); Mean Corpuscular Hemoglobin 36.7 pg (25-34); Mean Corpuscular Hgb Conc 33.3 g/dL (32-36); Mean Platelet Volume 9.6 fL (7.4-10.4); Platelet Count 195 K/uL (130-400); RDW Coefficient of Variation 15.4 % (11.5-14.5); RDW Standard Deviation 61.5 fL (36.4-46.3); Red Blood Count 2.89 M/uL (4.7-6.1); White Blood Count 33.79 K/uL (4.8-10.8)
[2019-07-16 05:10] LABS: Albumin Level 1.9 gm/dl (3.4-5.0); BUN Creatinine Ratio 17.8 (10-20); Bilirubin Direct 0.7 mg/dl (0-0.2); Bilirubin,Total 3.1 mg/dl (0.2-1); Calcium 6.9 mg/dl (8.5-10.1); Creatinine Clr Calc Pharmacy 38.8 ml/min; Est GFR (African American) 60.6; Est GFR (Non-African American) 52.3; Magnesium 1.6 mg/dl (1.8-2.4); Phosphorus 3.1 mg/dl (2.5-4.9); Potassium 3.4 mmol/L (3.5-5.1); Total Protein 5.3 gm/dl (6.4-8.2); Troponin I 0.408 ng/ml (0-0.045)
[2019-07-16 05:11] LABS: Basophils # (auto) 0.06 K/uL (0-0.2); Basophils % (auto) 0.2 %; Dohle Bodies 1+; Immature Granulocytes # (auto) 0.24 K/uL (0.00-0.02); Immature Granulocytes % (auto) 0.7 %; Lymphocytes # (auto) 0.85 K/uL (1.2-3.4); Lymphocytes % (auto) 2.5 %; Macrocytosis Present; Monocytes # (auto) 2.54 K/uL (0.11-0.59); Monocytes % (auto) 7.5 %; Neutrophils % (auto) 89.1 %
[2019-07-16] MEDS: RASPBERRY SYRUP 5 ML UDP PO SCH ×3 (05:41→17:47)
[2019-07-16] MEDS: VANCOMYCIN HCL 500 MG/10 ML SOLN PO SCH ×3 (05:41→17:47)
--- NOTE | 2019-07-16 07:58 | XRay Report ---
XR chest 1V portable HISTORY: 73 years-old Male LEFT IJ, NG follow-up study in a patient with enteric tube COMPARISON: Chest radiograph 07/15/2019, CTA of the chest 07/15/2019 TECHNIQUE: Portable AP view of the chest FINDINGS: Cardiac silhouette is enlarged, unchanged. Enteric tube is noted with distal tip projected superiorly within the region of the proximal to mid gastric lumen. Left IJ central venous catheter is noted, di stal tip terminating to the right of midline in the expected location of the brachiocephalic SVC conf luence. Calcified plaque of the thoracic aortic arch. No pneumothorax. Small left and trace right ple ural effusions with persistent left lung base opacities. Degenerative changes of the shoulders and sp ine. IMPRESSION: 1. Lines and tubes as above. 2. Unchanged enlargement of the cardiac silhouette. On comparison CTA of the chest this finding corre lated with cardiomegaly with moderate to large pericardial effusion. 3. Small left and trace right pleural effusions with persistent left lung base opacities suggestive o f probable atelectasis. ACT 112: Negative or not required by law. The above report was generated using voice recognition software. It may contain grammatical, syntax o r spelling errors. Electronically signed by: Justin Inman M.D. 07/16/2019 7:56 AM
[2019-07-16] MEDS: FLUCONAZOLE 100 MG TAB PO SCH (08:11)
[2019-07-16] MEDS: CALCIUM 600MG + VIT D 400 IU TAB PO SCH ×2 (08:11→21:07)
[2019-07-16] MEDS: MAGNESIUM OXIDE 400 MG TAB PO SCH (08:11)
[2019-07-16] MEDS: METOPROLOL TARTRATE 25 MG TAB PO SCH ×2 (08:11→21:04)
[2019-07-16] MEDS: TAMSULOSIN HCL 0.4 MG CAP PO SCH (08:11)
[2019-07-16] MEDS: ATOVAQUONE 750 MG/5 ML UDC PO SCH (08:12)
--- NOTE | 2019-07-16 09:55 | Procedure Note ---
Procedure Note Date of Service July 16, 2019 Procedure date: Noted above Procedure: Radial artery cannulation Pre-procedure Diagnosis: Need for invasive monitoring hypotension, frequent blood draws Post-procedure Diagnosis: same as above Prior to Procedure: Informed Consent: The risks, benefits, indications, potential complications, and alternatives were explained to the the patient's secondary to patient being encephalopathic and informed consent obtained. Attending Staff: Sheree Davis DO Skin Prep: Chlorhexidine Anesthesia: 3 mL 1% lidocaine without epinephrine The identity of the patient was confirmed and a bedside time out was performed. Description of Procedure: After sterile prep and sterile drape utilizing st andard sterile technique the superficial skin of the right radial artery was anesthetized. The target artery was identified via dynamic ultrasound guidance and entered with a 20-gauge arrow Angiocath. Pulsatile bright red blood return was noted. Via modified Seldinger technique the self-contained guidewire was advanced and the Angiocath advanced over the guidewire. The guidewire was removed and brisk arterial blood return was noted. The pressure monitor was connected, and the arterial line was secured via silk suture. A sterile dressing was then applied. Complications: None Estimated blood loss: Trace Patient tolerated the procedure well. Coding CPT Codes Tubes, Drains, and Vasc Access - Tubes, Drains, and Vasc Access: [id number] Place Catheter In Artery ([id number]) [facility] [place] Codes (Charges) Tubes, Drains, and Vasc Access Procedure 1: Tubes, Drains, and Vasc Access: [id number] Place Catheter In Artery
--- NOTE | 2019-07-16 09:57 | Procedure Note ---
Procedure Note Date of Service July 16, 2019 Procedure Date: noted above Procedure: Thoracentesis Pre-procedure Diagnosis: Sepsis, fever, pleural effusion Post-procedure Diagnosis: same as above Prior to Procedure: Informed Consent: The risks, benefits, indications, potential complications, and alternatives were explained to the patient's as the patient encephalopathic and informed consent obtained. Attending Staff: Ofe Davis DO Resident/Physician Gang Saw Operator: Not applicable Indications: The patient is a 73-year-old male patient with sepsis, immunocompromise and fever with pleural effusion requiring thoracentesis. The identity of the patient was confirmed and a bedside time out was performed. Description of Procedure: Patient positioned, the left posterior axillary line was prepped with chlorhexidine and draped in usual sterile fashion. Ultrasound guidance was used and appropriate fluid pocket was identified. 4 mL of 1% Lidocaine without epinephrine was used to anesthetize the area. A needle was introduced into the pleural space over the superior margin of the rib with care and fluid removed and sent for analysis. Total Fluid Removed: 300 ml Color of Fluid: [place] color Sent for: Gram Stain, culture, cell count, glucose, protein, LDH, pleural pH Complications: None Estimated blood loss: Trace Post procedure chest x-ray has been ordered Coding CPT Codes Pulmonary/Thoracic - Pulmonary and Thoracic: 61541 Thoracentesis w/o imaging ([id number]) [facility] [place] Procedure Codes (Charges) Pulmonary/Thoracic Procedure 1: Pulmonary and Thoracic: 40927 Thoracentesis w/o imaging
--- NOTE | 2019-07-16 10:00 | Procedure Note ---
Procedure Note Date of Service July 16, 2019 Procedure date: Noted above Procedure: Central venous access Pre-procedure indication: Need for vasoactive medication administration Post-procedure Diagnosis: same as above Prior to Procedure: Informed Consent: The risks, benefits, indications, potential complications, and alternatives were explained to the to the patient's as the patient is encephalopathic and informed consent obtained. Attending Staff: Sheree Davis DO Resident/APC: Not applicable Skin Prep: Chlorhexidine Anesthesia: 4 mL 1% lidocaine without epinephrine The identity of the patient was confirmed and a bedside time out was performed. Description of Procedure: After sterile prep and sterile drape utilizing standard sterile technique the superficial skin of the left internal jugular area was anesthetized. The target vessel was identified and entered with an 18- gauge needle. Dark venous blood return was noted. A guidewire was inserted through the needle and into the vessel. The needle was withdrawn and a skin peg was made. A tissue dilator was advanced via Seldinger technique and removed. A triple lumen catheter was inserted via Seldinger technique and the guidewire removed. All ports buck and flushed easily. A Biopatch was placed, and the catheter was secured via silk suture. A sterile dressing was then applied. The entire procedure was completed under dynamic ultrasound guidance. Complications: 1 arterial stick, small hematoma noted via ultrasound, not expanding, no swelling of the patient's neck Estimated blood loss: Trace Patient tolerated the procedure well. Coding CPT Codes Tubes, Drains, and Vasc Access - Tubes, Drains, and Vasc Access: [id number] Insertion Of Non-tunneled Catheter Age 4 Yrs> ([id number]) [facility] [place] Codes (Charges) Tubes, Drains, and Vasc Access Procedure 1: Tubes, Drains, and Vasc Access: [id number] Insertion Of Non-tunneled Catheter Age 4 Yrs>
--- NOTE | 2019-07-16 10:02 | Procedure Note ---
Procedure Note Date of Service July 16, 2019 Procedure Date: Noted above Procedure: Lumbar puncture Pre-procedure Diagnosis: Fever, immunocompromise, encephalopathy Post-procedure Diagnosis: same as above Prior to Procedure: Informed Consent: The risks, benefits, indications, potential complications, and alternatives were explained to the patient's and informed consent obtained. Attending Staff: Ofe Davis DO Resident/Physician Block Greaser: Not applicable Indications: Patient is a 73-year-old male with fever, immunocompromise, encephalopathy concerning for possible meningitis/encephalitis The identity of the patient was confirmed and a bedside time out was/was not performed. Description of Procedure: Patient was positioned in the left lateral decubitus position, prepped and draped in usual sterile fashion. The L3-4 and L4-5 space located with bilateral iliac crests as landmarks. 1% Lidocaine without epinephrine was used to anesthetize the area. A 18 gauge spinal needle was introduced several needle passes were completed in the L3-4 and L4-5 areas. I was unable to produce CSF fluid. Additional attempts were discontinued. Specimen(s): No specimen was obtained Complications: Attempts were aborted Findings: Inability to obtain lumbar puncture Estimated Blood Loss: trace Coding CPT Codes Lumbar Puncture - Lumbar Puncture, Diagnostic: 02749 Lumbar Puncture, Diagnostic ([id number]) [facility] [place] Codes (Charges) Lumbar Puncture Lumbar Puncture, Diagnostic: 46320 Lumbar Puncture, Diagnostic (Discontinued procedure)
--- NOTE | 2019-07-16 10:48 | Hospitalist Progress Note ---
Date of Service July 16, 2019 Assessment & Plan (1) Sepsis: with shock earlier as part of initial presentation Uncertain source. Was given approximately 3 L of fluid in the ICU, as well as 300 mg daptomycin, 750 mg levofloxacin, 4.5 g Zosyn -Differential fairly broad, although he has nonspecific appearance --Bacterial infection differentials - blood cultures pending, empiric abx to continue, stool for Cdiff (+) and agree empiric treatment, but would maintain vigilance for other etiologies given his lack of significant increase in diarrhea per (obviously if diarrhea increases here under observation that would more or less clinch this as dx, and certainly w his AML/etc it is quite plausible, but would want a little more clinical parameters to support this before excluding other differentials) - rise in procal overnight does raise potential for bacterial - continue empiric abx. --Viral infection seems quite probable. I have seen other cases of leukocytosis, fever, and malaise that with hindsight appeared to be a nondescript viral syndrome. His flu is negative. The transport team from [place] raised the question of COVID19, he does not have current "classic" risk factors, but even paying attention to the possibility of community spread, he has no known sick contacts, and while he has a fever, he has no ongoing cough/shortness of breath/characteristic lung findings on x-ray or CT, so it seems fairly unlikely in that respect. I would suspect a mono-like virus as a potential vector - that said, for now airborne precautions have been initiated, continue vigilance for all vectors --Septic appearance from the AML is certainly of concern as well, he appears to have stabilized right now, his ice maker was willing to see him in [place] but we are unable to get transport, hematology aware of his situation here. Certainly the pericardial effusion is concerning to be related to AML until proven otherwise ---> Anticipate empiric antibiotics and fluid support, per ICU discretion (2) Pericardial effusion: No tamponade, concern AML related, cardiology has seen, thoracic surgery has evaluated films - pending more formal input (3) Acute myelogenous leukemia: Hematology following (4) Hypokalemia: Replete per ICU protocol (5) Elevated serum creatinine: Almost certainly from being dehydrated, IV fluids - continue to follow (6) Dehydration: See above (7) Pleural effusion: Concern would be AML related, see above (8) Osteoporosis: (9) DVT prophylaxis: Per ICU (10) Discharge planning issues: Admit to ICU for now (11) Anemia: Appears to be fairly stable, his hemoglobin on 226 was 10.3 (12) Elevated brain natriuretic peptide (BNP) level: No clinical appearance of CHF, possibly related to the effusion, possibly related to age, possibly related to his elevated creatinine (13) Elevated bilirubin: Continue to follow closely, concern if this would relate to the AML. Check LDH (14) Hypoalbuminemia: As above, follow. Admission and Anticipated Discharge Date Admission Date: July 15, 2019 Subjective discussed extensively with ICU PA. night's events reviewed. pt seen outside room but for now with ICU managing entirety of case and in our discussion my assistance not immediately needed, as well as (while unlikely) the potential for a contagious disease vector has been entertained, we agreed on ongoing ICU management of case. updated hematology that while stool for Cdiff was positive and that could be the explanation, per during H&P yesterday his diarrhea pattern was unchanged from what it had been prior. Results & Data ([facility]) Vital Signs (Past 12 Hours) Vital Signs Pulse Resp BP Pulse Ox 07/16/19 06:00 99 H 17 88/62 L 95 07/16/19 05:06 100 H 19 79/52 L 92 07/16/19 05:00 101 H 19 93 07/16/19 04:51 102 H 21 75/46 L 94 07/16/19 04:38 103 H 20 68/45 L 94 07/16/19 04:36 103 H 19 77/47 L 92 07/16/19 04:30 106 H 4 L 92 07/16/19 04:06 105 H 18 89/60 L 95 07/16/19 04:00 107 H 22 79/52 L 94 07/16/19 03:51 106 H 21 84/57 L 93 07/16/19 03:36 108 H 21 91/62 L 94 07/16/19 03:30 108 H 21 94 07/16/19 03:21 109 H 21 92/62 L 94 07/16/19 03:13 108 H 19 93/62 L 95 07/16/19 03:06 104 H 17 80/55 L 94 07/16/19 03:00 102 H 20 93 07/16/19 02:30 102 H 18 94 07/16/19 02:00 105 H 21 96 07/16/19 01:30 104 H 21 96 07/16/19 01:11 103 H 24 78/50 L 97 07/16/19 01:07 102 H 24 70/48 L 95 07/16/19 01:00 103 H 24 93 07/16/19 00:40 106 H 25 H 129/113 H 94 07/16/19 00:34 108 H 29 H 121/80 81 L 07/16/19 00:30 107 H 27 H 72 L 07/16/19 00:29 107 H 41 H 89/57 L 73 L 07/16/19 00:21 110 H 28 H 79/67 L 85 L 07/16/19 00:16 108 H 21 56/40 L 82 L 07/16/19 00:07 108 H 26 H 116/61 52 L 07/16/19 00:00 108 H 24 84 L 07/15/19 23:45 108 H 35 H 136/74 96 07/15/19 23:30 160 H 35 H 131/86 95 07/15/19 23:28 162 H 33 H 131/86 94 07/15/19 23:13 169 H 36 H 160/108 H 92 07/15/19 23:00 163 H 34 H 94 07/15/19 22:59 163 H 36 H 175/116 H 91 07/15/19 22:43 129 H 22 142/86 H 96 PG Care Time/CCT Total # of Minutes Spent Total Time Spent with Patient: Total time spent is greater than 50% in coordination of care (as documented) at patient's floor/unit and/or counseling patient: Coding Level of Care Code None Diagnoses Sepsis A41.9 Pericardial effusion I31.3 Acute myelogenous leukemia C92.00 Leukemia Active/Remission status: without remission Hypokalemia E87.6 Elevated serum creatinine R79.89 Dehydration E86.0 Pleural effusion J90 Osteoporosis M80.80XD Osteoporosis type: other Presence of current pathological fracture: with current pathological fracture Encounter type: subsequent encounter Fracture healing: with routine healing DVT prophylaxis Z29.9 Discharge planning issues Z02.9 Anemia D64.9 Elevated brain natriuretic peptide (BNP) level R79.89 Elevated bilirubin R17 Hypoalbuminemia E88.09 (1) Acute myelogenous leukemia Leukemia Active/Remission status: without remission Qualified Code(s): C92.00 - Acute myeloblastic leukemia, not having achieved remission (2) Osteoporosis Osteoporosis type: other Presence of current pathological fracture: with current pathological fracture Encounter type: subsequent encounter Fracture healing: with routine healing Qualified Code(s): M80.80XD - Other osteoporosis with current pathological fracture, unspecified site, subsequent encounter for fracture with routine healing
--- NOTE | 2019-07-16 11:02 | Pulmonary Consultation ---
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 Unclear if the patient could have [id number] disease. He was initially admitted with septic shock. There was concern about potential coronavirus and it was felt this needed to be ruled out before the patient could be transferred to [facility] where he gets the majority of his care. Recommendations: 1. After extensive review of the chart and discussion with attending hospitalist service, it is felt the patient has an alternative diagnosis more likely than coronavirus at this point time. I think his symptoms can be explained based on septic shock related to C. difficile colitis. After discussion with the fishing accessories maker, I think it safe to discontinue respiratory precautions at this point time and proceed with definitive management of the patient's identified underlying infectious etiology and sepsis. (2) C. difficile colitis: (3) AML (acute myeloblastic leukemia): History of Present Illness Attending Physician: Alexander Calles DO History of Present Illness Asked to evaluate this patient for appropriateness of ruling out covert infection. History obtained from discussion with the critical care service as well as review the electronic medical record. Images were independently reviewed. Patient is a 73-year-old male with a history of AML currently on chemotherapy. He is status post bone marrow transplant. He is had issues with neutropenic fe vers. He gets the majority of his care through [place]. There is concern about potential kypfn-[id number]-zvla disease. He presented yesterday with cough. He was found to be febrile. He was evaluated in the emergency room. Initial plans were to transfer the patient to [place]. He was accepted by the ICU and by the hematology oncology service as he was known to them however the patient apparently was felt to be deemed too high of a risk to consider transport until [place] at 19 was ruled out. The patient was admitted to the ICU. He was intermittently hypotensive. Aggressive evaluation for other etiology of the patient's complaints was conducted including thoracentesis and attempted lumbar puncture. CT of the abdomen and pelvis did reveal thickening of the colon and proctitis. C. diffic ile toxin was identified. Allergies Allergy/AdvReac Type Severity Reaction Status Date / Time Bactrim Allergy Unknown RASH Verified 04/06/16 11:37 sulfamethoxazole Allergy Unknown RASH Verified 07/15/19 12:26 trimethoprim Allergy Unknown RASH Verified 07/15/19 12:26 Home Medications Home Medications Medication Instructions Recorded Confirmed Type tamsulosin 0.4 mg capsule 0.4 mg PO QAM cap 12/12/18 07/15/19 History acyclovir 200 mg PO BID 07/15/19 07/15/19 History atovaquone 1,500 mg PO DAILY 07/15/19 07/15/19 History calcium carbonate-vitamin D3 1 cap PO BID 07/15/19 07/15/19 History [Calcium 600 + D(3)] enasidenib [Idhifa] 100 mg PO QAM 07/15/19 07/15/19 History fluconazole 200 mg PO QAM 07/15/19 07/15/19 History magnesium oxide 400 mg PO QAM 07/15/19 07/15/19 History metoprolol tartrate 12.5 mg PO BID 07/15/19 07/15/19 History Patient History Medical History Anemia BPH with urinary obstruction Diverticular disease Gross hematuria Hypertension Internal hemorrhoid (Resolved) Kidney stones Osteoporosis (Chronic) SNHL (sensorineural hearing loss) Testicular cancer (Resolved) Tubular adenoma of colon Vertebral compression fracture (Resolved) Vitamin D deficiency Surgical History History of cholecystectomy History of colonoscopy History of herniorrhaphy BL INGUINAL History of orchiectomy History of total hip arthroplasty RIGHT JOSE Status post orchiopexy Family History Mother Breast cancer Family/Other Colorectal cancer Brother Dementia Heart disease Cancer Laryngeal Father Stroke Social History Preferred Language: Kinyarwanda Communication Ability: Effective Visual Impairment: No Limitations Hearing Ability: Hard of Hearing Maternal Child Nurse Required: No Beliefs That Will Affect Care: None marital status: Current Living Situation: Spouse current occupational status: employed current occupation: Retail Other Information That Helps Us Care for You: No Feels Safe at Home: Yes Safety Concerns: Feels Safe At This Time Smoking Status: Never smoker Second Hand Exposure: No ; Hx Alcohol Use: No Hx Substance Use: No Results & Data ([facility]) Vital Signs (Past 12 Hours) Vital Signs Pulse Resp BP Pulse Ox 07/16/19 06:00 99 H 17 88/62 L 95 07/16/19 05:06 100 H 19 79/52 L 92 07/16/19 05:00 101 H 19 93 07/16/19 04:51 102 H 21 75/46 L 94 07/16/19 04:38 103 H 20 68/45 L 94 07/16/19 04:36 103 H 19 77/47 L 92 07/16/19 04:30 106 H 4 L 92 07/16/19 04:06 105 H 18 89/60 L 95 07/16/19 04:00 107 H 22 79/52 L 94 07/16/19 03:51 106 H 21 84/57 L 93 07/16/19 03:36 108 H 21 91/62 L 94 07/16/19 03:30 108 H 21 94 07/16/19 03:21 109 H 21 92/62 L 94 07/16/19 03:13 108 H 19 93/62 L 95 07/16/19 03:06 104 H 17 80/55 L 94 07/16/19 03:00 102 H 20 93 07/16/19 02:30 102 H 18 94 07/16/19 02:00 105 H 21 96 07/16/19 01:30 104 H 21 96 07/16/19 01:11 103 H 24 78/50 L 97 07/16/19 01:07 102 H 24 70/48 L 95 07/16/19 01:00 103 H 24 93 07/16/19 00:40 106 H 25 H 129/113 H 94 07/16/19 00:34 108 H 29 H 121/80 81 L 07/16/19 00:30 107 H 27 H 72 L 07/16/19 00:29 107 H 41 H 89/57 L 73 L 07/16/19 00:21 110 H 28 H 79/67 L 85 L 07/16/19 00:16 108 H 21 56/40 L 82 L 07/16/19 00:07 108 H 26 H 116/61 52 L 07/16/19 00:00 108 H 24 84 L 07/15/19 23:45 108 H 35 H 136/74 96 07/15/19 23:30 160 H 35 H 131/86 95 07/15/19 23:28 162 H 33 H 131/86 94 07/15/19 23:13 169 H 36 H 160/108 H 92 07/15/19 23:00 163 H 34 H 94 07/15/19 22:59 163 H 36 H 175/116 H 91 Laboratory Results 07/16/19 04:00 07/16/19 04:14 Diagnostic Findings Imaging studies were independently reviewed. CT of the chest: Small left-sided pleural effusion was noted with some basilar atelectasis. No clear pulmonary infiltrates identified. Pericardial effusion was also identified. CT the abdomen did demonstrate thickening of the sigmoid colon and rectum. PG Care Time/CCT Total # of Minutes Spent Total Time Spent with Patient: Total time spent is greater than 50% in coordination of care (as documented) at patient's floor/unit and/or counseling patient: Coding Level of Care Code 39631 Initial Inpt Care Lvl 3 Diagnoses Severe sepsis with septic shock A41.9; R65.21 C. difficile colitis A04.72 AML (acute myeloblastic leukemia) C92.00
[2019-07-16] MEDS ORDERED: fentaNYL citrate 100 MCG/2 ML VIAL ONE (11:34)
[2019-07-16] MEDS ORDERED: MIDAZOLAM HCL 1 MG/ML 2ML VIAL ONE (11:34)
--- NOTE | 2019-07-16 11:42 | Pre Anesthesia Assessment ---
Date of Service July 16, 2019 Pre Sedation Assessment Vital Signs Temp Pulse Pulse Resp BP BP Pulse Ox 07/16/19 06:00 99 H 17 88/62 L 95 07/16/19 05:06 100 H 19 79/52 L 92 07/16/19 05:00 101 H 19 93 07/16/19 04:51 102 H 21 75/46 L 94 07/16/19 04:38 103 H 20 68/45 L 94 07/16/19 04:36 103 H 19 77/47 L 92 07/16/19 04:30 106 H 4 L 92 07/16/19 04:06 105 H 18 89/60 L 95 07/16/19 04:00 107 H 22 79/52 L 94 07/16/19 03:51 106 H 21 84/57 L 93 07/16/19 03:36 108 H 21 91/62 L 94 07/16/19 03:30 108 H 21 94 07/16/19 03:21 109 H 21 92/62 L 94 07/16/19 03:13 108 H 19 93/62 L 95 07/16/19 03:06 104 H 17 80/55 L 94 07/16/19 03:00 102 H 20 93 07/16/19 02:30 102 H 18 94 07/16/19 02:00 105 H 21 96 07/16/19 01:30 104 H 21 96 07/16/19 01:11 103 H 24 78/50 L 97 07/16/19 01:07 102 H 24 70/48 L 95 07/16/19 01:00 103 H 24 93 07/16/19 00:40 106 H 25 H 129/113 H 94 07/16/19 00:34 108 H 29 H 121/80 81 L 07/16/19 00:30 107 H 27 H 72 L 07/16/19 00:29 107 H 41 H 89/57 L 73 L 07/16/19 00:21 110 H 28 H 79/67 L 85 L 07/16/19 00:16 108 H 21 56/40 L 82 L 07/16/19 00:07 108 H 26 H 116/61 52 L 07/16/19 00:00 108 H 24 84 L 07/15/19 23:45 108 H 35 H 136/74 96 07/15/19 23:30 160 H 35 H 131/86 95 07/15/19 23:28 162 H 33 H 131/86 94 07/15/19 23:13 169 H 36 H 160/108 H 92 07/15/19 23:00 163 H 34 H 94 07/15/19 22:59 163 H 36 H 175/116 H 91 07/15/19 22:43 129 H 22 142/86 H 96 07/15/19 22:30 124 H 21 94 07/15/19 22:28 124 H 15 120/74 95 07/15/19 22:13 128 H 25 H 113/71 94 07/15/19 22:00 132 H 26 H 93 07/15/19 21:55 133 H 29 H 128/86 94 07/15/19 21:39 118 H 33 H 152/122 H 91 07/15/19 21:30 143 H 31 H 95 07/15/19 21:00 129 H 26 H 128/86 94 07/15/19 20:50 127 H 24 141/80 H 94 07/15/19 20:30 128 H 26 H 93 07/15/19 20:00 131 H 27 H 94 07/15/19 19:52 39.7 C H 134 H 18 177/82 H 93 07/15/19 19:50 60 27 H 177/82 H 93 07/15/19 19:16 118 H 17 93 07/15/19 19:15 118 H 23 135/76 94 07/15/19 19:00 121 H 20 141/77 H 95 07/15/19 18:45 118 H 22 132/77 94 07/15/19 18:30 117 H 20 125/75 94 07/15/19 18:15 143/79 H 95 07/15/19 18:00 114 H 23 132/74 95 07/15/19 17:45 86 18 104/70 93 07/15/19 17:30 115 H 20 101/68 94 07/15/19 17:15 121 H 21 113/67 95 07/15/19 17:00 119 H 22 119/69 96 07/15/19 16:45 123 H 18 106/70 96 07/15/19 16:31 19 118/66 95 07/15/19 16:30 15 120/66 96 07/15/19 16:15 97 H 18 97/62 L 96 07/15/19 16:00 116 H 20 91/64 L 96 07/15/19 15:45 103 H 18 94/62 L 96 07/15/19 15:42 77 14 104/67 96 07/15/19 15:30 37.8 C H 07/15/19 15:00 116 H 23 96/58 L 96 07/15/19 14:45 114 H 14 86/54 L 96 07/15/19 14:35 116 H 18 98/55 L 96 07/15/19 14:30 120 H 16 78/55 L 95 07/15/19 14:19 126 H 24 87/55 L 94 07/15/19 14:11 125 H 22 80/55 L 94 07/15/19 14:06 125 H 21 82/61 L 07/15/19 14:05 126 H 26 H 77/52 L 07/15/19 14:00 130 H 21 79/50 L 07/15/19 13:45 130 H 8 L 07/15/19 13:30 135 H 26 H 146/63 H 07/15/19 13:00 134 H 19 157/76 H 96 07/15/19 12:00 129 H 25 H 116/78 94 Cardiovascular + regular rate and + regular rhythm Respiratory + respiratory effort normal Pre-Sedation Airway Assessment Smoking Status: Never smoker Hx Sleep Apnea: No Hx Difficult Intubation: No Short, Thick Neck: No Thyromental Distance: > or= 3.5 Finger Breadths Oral Cavity: + WNL Mallampati Class: III ASA: ASA4 Procedure Planning Contraindications for Sedation: none Current Medications Reviewed: Yes Notes The planned sedation has been discussed with the patient. Informed Consent was obtained. I have identified the patient, determined the appropriateness of sedation and have assessed the patient immediately prior to the procedure. All medicine(s) and interventions are by my order.
--- NOTE | 2019-07-16 11:56 | Consultation Report ---
DATE OF CONSULTATION: 07/16/2019 REASON FOR CONSULTATION: Pericardial effusion and left pleural effusion. HISTORY OF PRESENT ILLNESS: This is a 73-year-old male, who is a patient of Dr. Dustin [place]. The patient has acute myelogenous leukemia and has been treated at [place]. The patient presents with essentially shock. He came in hypotensive requiring significant fluid resuscitation as well as inotropic support, although he does not have that now. He has a left pleural effusion, was tapped last night. This does not appear to be infected. He has a pericardial effusion and while he does not have pericardial tamponade by his transthoracic echo, his hypotension has been a concern. I was asked to see him from a thoracic surgery standpoint for this reason. One other thing of note is the patient has diarrhea and has been found to have Clostridium difficile colitis, which may account for many of the things that we see. He obviously is dehydrated. He is not hypoxic and not requiring oxygen currently. His creatinine is elevated and he has some electrolyte abnormalities. This was rather acute onset and he had some whitish sputum. He got sick fairly quickly and was brought here. He received enasidenib as well, although he had been on tacrolimus that has been stopped. PAST MEDICAL HISTORY: See above. PAST SURGICAL HISTORY: Cholecystectomy, colonoscopy, orchiopexy, right total hip arthroplasty, orchiectomy, and bilateral inguinal herniorrhaphy. MEDICATIONS: Please see history of present illness and chart. ALLERGIES: BACTRIM AND SULFA, IN GENERAL CAUSE A RASH. SOCIAL HISTORY: The patient worked in [employer]. He lives with his . He has 3 children. His daughter apparently works at the [employer]. FAMILY MEDICAL HISTORY: His 3 children and 1 grandchild are healthy. Mother from breast cancer in her 60s. Father from a stroke in his 70s. He had a brother who had laryngeal carcinoma and dementia. There is also a history of colorectal carcinoma. REVIEW OF SYSTEMS: Please see history of present illness. He complains of some pain in his back but really has no other pain. He is not short of breath. He is quite flushed and weak and fatigued. PHYSICAL EXAMINATION: GENERAL: This is an byd-tffaviobwag-pykymspyw 73-year-old male who is awake and alert. HEENT: He has an NG tube in his nares. He is on no oxygen. He does not have aleksandr or evidence of candidiasis orally. His mucous membranes are dry. He has bilateral arcus senilis and his sclerae are pale. He has no evidence of meningeal signs. HEART: Currently, his heart rate is in the 90s and regular. He has no rubs. I do not see evidence of pulsus paradoxus and his heart tones are rather crisp. LUNGS: He has decreased breath sounds in both bases, worse on the left than the right. ABDOMEN: Soft, very mild tenderness to deep palpation in the subxiphoid area. He has no evidence of ascites. EXTREMITIES: His extremities are cool, but he has palpable pedal pulses. NEUROLOGIC: He is awake and alert, but weak. ASSESSMENT AND PLAN: Moderate to large pericardial effusion with a left pleural effusion. He has had his pleural effusion drained. Dr Jade is going to insert a pericardial drain, which I feel is appropriate. I will follow along and assess his progress. He also has clostridium difficile colitis. [facility]
--- NOTE | 2019-07-16 12:20 | Oncology Consultation ---
Date of Consultation July 16, 2019 Assessment & Plan (1) AMS (altered mental status): Mr. French has sepsis from a likely infectious source. In light of his positive stool toxin A&B, C diff is a leading candidate. He also has some abdominal tenderness and CT changes that could be consistent with colitis, though not the sort of diffuse pancolitis we often see in more severe pseudomembranous colitis. In light of his immunocompromised state, I would also be concerned about CMV reactivation. 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 For now, I would continue to treat him for C diff colitis. However, until we definitively exclude another bacterial source, I might consider continuing some broader- spectrum empiric antibiotics as well. I would also screen him for CMV. I reviewed his case with Dr. Delgado from malignant hematology at [facility]. He agreed that if the patient deteriorates clinically or fails to improve, it would be appropriate to transfer him there, in light of the complexity of his case and the fact that his other doctors are there. 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 I reviewed his peripheral smear and did not see any evidence of schistocytes to suggest a microangiopathy. Patients following transplant can develop hemolytic anemias. His LDH is mildly elevated, but this is non-specific. His hemoglobin did drop a bit, but is actually higher than it was in August. His CT did not show any signs of biliary obstruction. I recommended a Coomb's test, haptoglobin, and retic count that showed a slight reticulocytosis. Present on Admission?: Yes (3) AML (acute myeloblastic leukemia): Mr. French was in a complete remission following his initial induction chemotherapy course. He has since undergone consolidative chemotherapy and allogeneic stem cell transplant. His leukocytosis is all neutrophils and he did not have any evidence of immature forms in his differential or his smear. I see no reason to think his AML is active at this time. Present on Admission?: Yes History of Present Illness Reason for Consultation: History of AML Sepsis Attending Physician: Alexander Calles, DO History of Present Illness Mr. 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 The latter disease was diagnosed in April 2018. He underwent induction chemotherapy at that time and had a complete remission on marrow biopsy in May. He received 2 cycles of consolidative chemotherapy in June and July. 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 I do not have records of recent [place] [facility] [place] he apparently has been in remission. He presented to the ER on 07/13 with altered mental status and a few days of fevers and cough. He was mildly hypoxic and was in shock, though he responded well to volume resuscitation. He had no sick contacts and no history of recent travel outside the area. A biofire panel was negative for common respiratory viruses. Cultures are mostly still pending. However, a stool specimen for C diff was positive. He had a CT A/P that revealed some changes that could be consistent with colitis. He has had chronic diarrhea, though his family told his admitting provider that it has been mostly stable. When I spoke with him, he described 2-3 watery bowel movements per day over the last few weeks, which has been a change from his prior baseline. He had just returned from a pericardiocentesis and was fatigued but was better able to speak than when I saw him earlier. He denied any acute pain but was tender to palpation of his abdomen. He did not feel acutely short of breath. He denied any cough. His last fever was this morning early. Allergies Allergy/AdvReac Type Severity Reaction Status Date / Time Bactrim Allergy Unknown RASH Verified 04/06/16 11:37 sulfamethoxazole Allergy Unknown RASH Verified 07/15/19 12:26 trimethoprim Allergy Unknown RASH Verified 07/15/19 12:26 Home Medications Home Medications Medication Instructions Recorded Confirmed Type tamsulosin 0.4 mg capsule 0.4 mg PO QAM cap 12/12/18 07/15/19 History acyclovir 200 mg PO BID 07/15/19 07/15/19 History atovaquone 1,500 mg PO DAILY 07/15/19 07/15/19 History calcium carbonate-vitamin D3 1 cap PO BID 07/15/19 07/15/19 History [Calcium 600 + D(3)] enasidenib [Idhifa] 100 mg PO QAM 07/15/19 07/15/19 History fluconazole 200 mg PO QAM 07/15/19 07/15/19 History magnesium oxide 400 mg PO QAM 07/15/19 07/15/19 History metoprolol tartrate 12.5 mg PO BID 07/15/19 07/15/19 History Patient History Medical History Anemia BPH with urinary obstruction Diverticular disease Gross hematuria Hypertension Internal hemorrhoid (Resolved) Kidney stones Osteoporosis (Chronic) SNHL (sensorineural hearing loss) Testicular cancer (Resolved) Tubular adenoma of colon Vertebral compression fracture (Resolved) Vitamin D deficiency Surgical History History of cholecystectomy History of colonoscopy History of herniorrhaphy BL INGUINAL History of orchiectomy History of total hip arthroplasty RIGHT JOSE Status post orchiopexy Family History Mother Breast cancer Family/Other Colorectal cancer Brother Dementia Heart disease Cancer Laryngeal Father Stroke Social History Preferred Language: Tristanian Communication Ability: Effective Visual Impairment: No Limitations Hearing Ability: Hard of Hearing Stakeholder Manager Required: No Beliefs That Will Affect Care: None marital status: Current Living Situation: Spouse current occupational status: employed current occupation: Retail Other Information That Helps Us Care for You: No Feels Safe at Home: Yes Safety Concerns: Feels Safe At This Time Smoking Status: Never smoker Second Hand Exposure: No ; Hx Alcohol Use: No Hx Substance Use: No Review of Systems Review of Systems: His ROS was limited as he was uncomfortable and his mental status was still mildly altered. See the HPI. Physical Exam Constitutional: + ill appearing and + frail appearing; no acute distress ENMT: external ear and nose normal, oropharynx normal Respiratory: normal respiratory effort Auscultation: lungs clear to auscultation bilaterally (anteriorly) Cardiovascular: Rate/Rhythm: regular rate and + tachycardic Extremities: + edema (trace bilateral edema to his ankles) Gastrointestinal (Abdomen): Inspection/Auscultation: normal bowel sounds Percussion/Palpation: abdomen soft; abdomen nontender Neurologic: He answered questions appropriately but was weak and slow to respond. Results & Data Vital Signs (Past 12 Hours) Vital Signs Pulse Resp BP Pulse Ox 07/16/19 06:00 99 H 17 88/62 L 95 07/16/19 05:06 100 H 19 79/52 L 92 07/16/19 05:00 101 H 19 93 07/16/19 04:51 102 H 21 75/46 L 94 07/16/19 04:38 103 H 20 68/45 L 94 07/16/19 04:36 103 H 19 77/47 L 92 07/16/19 04:30 106 H 4 L 92 07/16/19 04:06 105 H 18 89/60 L 95 07/16/19 04:00 107 H 22 79/52 L 94 07/16/19 03:51 106 H 21 84/57 L 93 07/16/19 03:36 108 H 21 91/62 L 94 07/16/19 03:30 108 H 21 94 07/16/19 03:21 109 H 21 92/62 L 94 07/16/19 03:13 108 H 19 93/62 L 95 07/16/19 03:06 104 H 17 80/55 L 94 07/16/19 03:00 102 H 20 93 07/16/19 02:30 102 H 18 94 07/16/19 02:00 105 H 21 96 07/16/19 01:30 104 H 21 96 07/16/19 01:11 103 H 24 78/50 L 97 07/16/19 01:07 102 H 24 70/48 L 95 07/16/19 01:00 103 H 24 93 07/16/19 00:40 106 H 25 H 129/113 H 94 07/16/19 00:34 108 H 29 H 121/80 81 L 07/16/19 00:30 107 H 27 H 72 L 07/16/19 00:29 107 H 41 H 89/57 L 73 L 07/16/19 00:21 110 H 28 H 79/67 L 85 L Laboratory Results Abnormal lab results 07/15/19 07/15/19 07/15/19 Range/Units 11:56 11:56 12:55 WBC 30.22 H* (4.8-10.8) K/uL RBC 3.18 L (4.7-6.1) M/uL Hgb 11.7 L (14.0-18.0) g/dL Hct 35.1 L (42-52) % MCV 110.4 H (80-100) fL MCH 36.8 H (25-34) pg RDW Std Deviation 60.3 H (36.4-46.3) fL RDW Coeff of Cecilia 15.2 H (11.5-14.5) % Immature Gran # (Auto) 0.17 H (0.00-0.02) K/uL Neut # (Auto) 22.42 H (1.4-6.5) K/uL Lymph # (Auto) 3.61 H (1.2-3.4) K/uL Bosque # (Auto) 3.99 H (0.11-0.59) K/uL PT (9.0-12.0) Seconds INR (0.9-1.1) Potassium (3.5-5.1) mmol/L Chloride (98-107) mmol/L Carbon Dioxide (21-32) mmol/L BUN (7-18) mg/dl Glucose (70-99) mg/dl Lactate (0.4-2.0) mmol/L Calcium (8.5-10.1) mg/dl Ionized Calcium (1.12-1.32) mmol/L Magnesium (1.8-2.4) mg/dl Total Bilirubin 2.6 H (0.2-1) mg/dl Direct Bilirubin (0-0.2) mg/dl AST (15-37) U/L Lactate Dehydrogenase (87-241) U/L Troponin I (0-0.045) ng/ml NT-Pro-B Natriuret Pep 4093 H (0-900) pg/ml Total Protein (6.4-8.2) gm/dl Albumin (3.4-5.0) gm/dl Albumin/Globulin Ratio 0.7 L (0.9-2) Procalcitonin (0-0.5) ng/ml Urine Appearance Turbid A (Clear) Ur Specific Mcdaniels > 1.045 H (1.000-1.030) Urine Protein 1+ H (Negative) Urine Ketones Trace H (Negative) Urine Blood 3+ H (Negative) Ur Leukocyte Esterase Trace H (Negative) Urine WBC (Auto) 5-10 H (0-5) /hpf Urine RBC (Auto) >30 H (0-4) /hpf U Epithel Cells (Auto) 20-30 H (0-5) /lpf Uric Acid Crystals Present A (None Prsent) Urine Mucus Present A (None Prsent) Pleural pH (7.3-7.4) Stl C. diff Tox B Gene (Neg) Stl C.difficile Tox A&B (Negative) 07/15/19 07/15/19 07/15/19 Range/Units 19:53 21:29 21:29 WBC (4.8-10.8) K/uL RBC (4.7-6.1) M/uL Hgb (14.0-18.0) g/dL Hct (42-52) % MCV (80-100) fL MCH (25-34) pg RDW Std Deviation (36.4-46.3) fL RDW Coeff of Cecilia (11.5-14.5) % Immature Gran # (Auto) (0.00-0.02) K/uL Neut # (Auto) (1.4-6.5) K/uL Lymph # (Auto) (1.2-3.4) K/uL Bosque # (Auto) (0.11-0.59) K/uL PT 12.9 H (9.0-12.0) Seconds INR 1.2 H (0.9-1.1) Potassium (3.5-5.1) mmol/L Chloride (98-107) mmol/L Carbon Dioxide (21-32) mmol/L BUN (7-18) mg/dl Glucose (70-99) mg/dl Lactate 2.4 H* (0.4-2.0) mmol/L Calcium (8.5-10.1) mg/dl Ionized Calcium (1.12-1.32) mmol/L Magnesium (1.8-2.4) mg/dl Total Bilirubin (0.2-1) mg/dl Direct Bilirubin (0-0.2) mg/dl AST (15-37) U/L Lactate Dehydrogenase 282 H (87-241) U/L Troponin I (0-0.045) ng/ml NT-Pro-B Natriuret Pep (0-900) pg/ml Total Protein (6.4-8.2) gm/dl Albumin (3.4-5.0) gm/dl Albumin/Globulin Ratio (0.9-2) Procalcitonin (0-0.5) ng/ml Urine Appearance (Clear) Ur Specific Mcdaniels (1.000-1.030) Urine Protein (Negative) Urine Ketones (Negative) Urine Blood (Negative) Ur Leukocyte Esterase (Negative) Urine WBC (Auto) (0-5) /hpf Urine RBC (Auto) (0-4) /hpf U Epithel Cells (Auto) (0-5) /lpf Uric Acid Crystals (None Prsent) Urine Mucus (None Prsent) Pleural pH (7.3-7.4) Stl C. diff Tox B Gene (Neg) Stl C.difficile Tox A&B (Negative) 07/15/19 07/16/19 07/16/19 Range/Units 21:29 00:25 00:34 WBC (4.8-10.8) K/uL RBC (4.7-6.1) M/uL Hgb (14.0-18.0) g/dL Hct (42-52) % MCV (80-100) fL MCH (25-34) pg RDW Std Deviation (36.4-46.3) fL RDW Coeff of Cecilia (11.5-14.5) % Immature Gran # (Auto) (0.00-0.02) K/uL Neut # (Auto) (1.4-6.5) K/uL Lymph # (Auto) (1.2-3.4) K/uL Bosque # (Auto) (0.11-0.59) K/uL PT (9.0-12.0) Seconds INR (0.9-1.1) Potassium (3.5-5.1) mmol/L Chloride (98-107) mmol/L Carbon Dioxide (21-32) mmol/L BUN (7-18) mg/dl Glucose (70-99) mg/dl Lactate 2.6 H* (0.4-2.0) mmol/L Calcium (8.5-10.1) mg/dl Ionized Calcium 0.91 L (1.12-1.32) mmol/L Magnesium (1.8-2.4) mg/dl Total Bilirubin (0.2-1) mg/dl Direct Bilirubin (0-0.2) mg/dl AST (15-37) U/L Lactate Dehydrogenase (87-241) U/L Troponin I (0-0.045) ng/ml NT-Pro-B Natriuret Pep (0-900) pg/ml Total Protein (6.4-8.2) gm/dl Albumin (3.4-5.0) gm/dl Albumin/Globulin Ratio (0.9-2) Procalcitonin (0-0.5) ng/ml Urine Appearance (Clear) Ur Specific Mcdaniels (1.000-1.030) Urine Protein (Negative) Urine Ketones (Negative) Urine Blood (Negative) Ur Leukocyte Esterase (Negative) Urine WBC (Auto) (0-5) /hpf Urine RBC (Auto) (0-4) /hpf U Epithel Cells (Auto) (0-5) /lpf Uric Acid Crystals (None Prsent) Urine Mucus (None Prsent) Pleural pH 7.45 H (7.3-7.4) Stl C. diff Tox B Gene (Neg) Stl C.difficile Tox A&B (Negative) 07/16/19 07/16/19 07/16/19 Range/Units 00:34 00:36 04:00 WBC 33.79 H* (4.8-10.8) K/uL RBC 2.89 L (4.7-6.1) M/uL Hgb 10.6 L (14.0-18.0) g/dL Hct 31.8 L (42-52) % MCV 110.0 H (80-100) fL MCH 36.7 H (25-34) pg RDW Std Deviation 61.5 H (36.4-46.3) fL RDW Coeff of Cecilia 15.4 H (11.5-14.5) % Immature Gran # (Auto) 0.24 H (0.00-0.02) K/uL Neut # (Auto) 30.10 H (1.4-6.5) K/uL Lymph # (Auto) 0.85 L (1.2-3.4) K/uL Bosque # (Auto) 2.54 H (0.11-0.59) K/uL PT (9.0-12.0) Seconds INR (0.9-1.1) Potassium 2.8 L (3.5-5.1) mmol/L Chloride 117 H (98-107) mmol/L Carbon Dioxide 19 L (21-32) mmol/L BUN 21 H (7-18) mg/dl Glucose 104 H (70-99) mg/dl Lactate (0.4-2.0) mmol/L Calcium 6.1 L D (8.5-10.1) mg/dl Ionized Calcium (1.12-1.32) mmol/L Magnesium (1.8-2.4) mg/dl Total Bilirubin (0.2-1) mg/dl Direct Bilirubin (0-0.2) mg/dl AST (15-37) U/L Lactate Dehydrogenase 256 H (87-241) U/L Troponin I (0-0.045) ng/ml NT-Pro-B Natriuret Pep (0-900) pg/ml Total Protein (6.4-8.2) gm/dl Albumin (3.4-5.0) gm/dl Albumin/Globulin Ratio (0.9-2) Procalcitonin (0-0.5) ng/ml Urine Appearance (Clear) Ur Specific Mcdaniels (1.000-1.030) Urine Protein (Negative) Urine Ketones (Negative) Urine Blood (Negative) Ur Leukocyte Esterase (Negative) Urine WBC (Auto) (0-5) /hpf Urine RBC (Auto) (0-4) /hpf U Epithel Cells (Auto) (0-5) /lpf Uric Acid Crystals (None Prsent) Urine Mucus (None Prsent) Pleural pH (7.3-7.4) Stl C. diff Tox B Gene (Neg) Stl C.difficile Tox A&B (Negative) 07/16/19 07/16/19 07/16/19 Range/Units 04:14 04:44 Unknown WBC (4.8-10.8) K/uL RBC (4.7-6.1) M/uL Hgb (14.0-18.0) g/dL Hct (42-52) % MCV (80-100) fL MCH (25-34) pg RDW Std Deviation (36.4-46.3) fL RDW Coeff of Cecilia (11.5-14.5) % Immature Gran # (Auto) (0.00-0.02) K/uL Neut # (Auto) (1.4-6.5) K/uL Lymph # (Auto) (1.2-3.4) K/uL Bosque # (Auto) (0.11-0.59) K/uL PT (9.0-12.0) Seconds INR (0.9-1.1) Potassium 3.4 L D (3.5-5.1) mmol/L Chloride 114 H (98-107) mmol/L Carbon Dioxide 19 L (21-32) mmol/L BUN 24 H (7-18) mg/dl Glucose 138 H (70-99) mg/dl Lactate (0.4-2.0) mmol/L Calcium 6.9 L (8.5-10.1) mg/dl Ionized Calcium (1.12-1.32) mmol/L Magnesium 1.6 L (1.8-2.4) mg/dl Total Bilirubin 3.1 H (0.2-1) mg/dl Direct Bilirubin 0.7 H (0-0.2) mg/dl AST 40 H (15-37) U/L Lactate Dehydrogenase (87-241) U/L Troponin I 0.408 H* (0-0.045) ng/ml NT-Pro-B Natriuret Pep (0-900) pg/ml Total Protein 5.3 L D (6.4-8.2) gm/dl Albumin 1.9 L (3.4-5.0) gm/dl Albumin/Globulin Ratio (0.9-2) Procalcitonin 8.16 H (0-0.5) ng/ml Urine Appearance (Clear) Ur Specific Mcdaniels (1.000-1.030) Urine Protein (Negative) Urine Ketones (Negative) Urine Blood (Negative) Ur Leukocyte Esterase (Negative) Urine WBC (Auto) (0-5) /hpf Urine RBC (Auto) (0-4) /hpf U Epithel Cells (Auto) (0-5) /lpf Uric Acid Crystals (None Prsent) Urine Mucus (None Prsent) Pleural pH (7.3-7.4) Stl C. diff Tox B Gene Positive Cdiff Gene H (Neg) Stl C.difficile Tox A&B Positive Cdiff Toxin A* (Negative) Diagnostic Findings CT A/P, 07/15/19: IMPRESSION: 1. Moderate to large pericardial effusion and small bilateral pleural effusions. Please refer to the same day chest CT for further evaluation of the lung bases. 2. Questionable thickening versus underdistention of the sigmoid colon and rectum. This could represent a low-grade grade proctocolitis. 3. No evidence for bowel obstruction. 4. Bilateral nephrolithiasis. No hydronephrosis. 5. No change in the chronic compression deformities within the lower thoracic and lumbar spine. 6. Stable 3 cm focal area of soft tissue thickening in the region of the right seminal vesicle. This is indeterminate but is present dating back to at least 2013.
--- NOTE | 2019-07-16 12:53 | Critical Care Progress Note ---
Date of Service July 16, 2019 Assessment & Plan (1) C. difficile colitis: Admitted to intensive care unit: Reason Critically Ill: 73-year-old male with severe sepsis with septic shock in the setting of C. difficile colitis requiring vasoactive medication NEURO - CAM ICU: POSITIVE Altered mental status: CT head unremarkable. Likely metabolic encephalopathy in the setting of severe sepsis. -Unable to obtain lumbar puncture -Given significant improvement in mental status and risk benefit of continuing meningeal prophylaxis versus discontinuing additional antibiotics which would prolong C. difficile colitis I feel it is more prudent to discontinue the additional antibiotics and focus on the treatment of the C. difficile. -Reinstitute home antivirals CARDIAC/VASCULAR - Pericardial effusion: -Pericardial drain with cardiology today -Reviewed thoracic surgery consultation Elevated troponins -Likely secondary to tachycardia -Improved with low-dose beta-nathan RESPIRATORY - Pleural effusions: -Thoracentesis of left pericardial effusion -Not consistent with empyema at this time -Patient did not exhibit groundglass opacities, no hypoxia, no cough, reviewed pulmonary consultation -I believe the patient's sepsis and constellation of symptoms is best explained by C. difficile colitis and he does not exhibit high risk characteristics for COVID-19. GI/NUTRITION - Antibiotic associated C. difficile colitis -Oral vancomycin -Consult ID and hematology for possible bezlotoxumab therapy Noted to have proctitis on CT. Hypoalbuminemia -Clear liquid diet to advance as tolerated Prophylaxis: Famotidine RENAL/LYTES - Lactic acidosis: Resolved Replete as necessary. History of chemo-induced acute kidney injury -Monitor creatinine Discontinuing additional IV fluid, will adjust based off the patient's clinical response - Clark in place - Strict I&Os. ENDO - No history of diabetes or thyroid disease. BSGs per unit protocol. ISS --> gtt per unit policy. HEME - Significant leukocytosis: Question contribution of AML versus severe septic state. Stable H&H at this time. AML: Currently treated at [facility]. Multiple rounds of chemotherapy previously. History of bone marrow transplant. Question worsening [id number]. Appreciate oncology recommendations. ID - Severe sepsis with septic shock: -C. 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 SCDs (2) Encephalopathy acute: (3) History of recent chemotherapy: (4) AML (acute myeloblastic leukemia): (5) Severe sepsis with septic shock: (6) Admitted to intensive care unit: (7) Hypoalbuminemia: (8) Pleural effusion: (9) Pericardial effusion: (10) Fever: (11) Anemia: Subjective Additional history I obtained from the patient's was that the patient had fallen several days ago and had suffered an abrasion to the skin. She contacted the patient's physician who put him on a unknown antibiotic. Patient has chronic diarrhea at baseline however 5 days after starting the antibiotic the diarrhea did get worse. Patient's mental status has improved with C. difficile treatment. Plans to undergo pericardial catheter with cardiology today. Discussed case with hematology/oncology. Review of Systems Review of Systems: Unobtainable due to reduced consciousness Physical Exam Physical Exam: VITAL SIGNS - Vital signs and nursing notes were reviewed. GENERAL - 73-year-old male appearing his stated age who is in no acute distress. Pleasantly confused. HEAD - NC/AT. EYES - PERRL with EOMI bilaterally. Sclera anicteric. Palpebral conjunctiva pink and moist with no injection noted. EARS - No deformities of external structures noted on gross examination bilaterally. NOSE - Midline and without cyanosis. No epistaxis or purulent drainage noted. Septum midline without deviation or septal hematoma noted. MOUTH/OROPHARYNX - Without perioral cyanosis. Buccal mucosa pink and dry. NECK -no nuchal rigidity, no JVD LUNGS - Chest wall symmetric without accessory muscle use, intercostals retractions, or central cyanosis. Normal vesicular breath sounds CTA B/L. No wheezes, rales, or rhonchi appreciated. CARDIAC -tachycardia ABDOMEN - Abdominal contour flat without pulsations or visible masses. BS normoactive all four quadrants. No tenderness, palpable masses, hepatosplenomegaly, or ascites noted. EXTREMITIES - No clubbing or peripheral cyanosis. No pretibial edema present. +3/5 radial and dorsalis pedis pulses palpated throughout. +5/5 strength noted in UE/LE bilaterally. NEUROLOGIC -cranial nerves II to XII grossly intact. No focal neurological deficits. Psychiatric: Glascow Coma Scale: Eyes: 4, Verbal 4, Motor 6, Total 14 Results & Data ([facility]) Vital Signs (Past 12 Hours) Vital Signs Pulse Resp BP Pulse Ox 07/16/19 06:00 99 H 17 88/62 L 95 07/16/19 05:06 100 H 19 79/52 L 92 07/16/19 05:00 101 H 19 93 07/16/19 04:51 102 H 21 75/46 L 94 07/16/19 04:38 103 H 20 68/45 L 94 07/16/19 04:36 103 H 19 77/47 L 92 07/16/19 04:30 106 H 4 L 92 07/16/19 04:06 105 H 18 89/60 L 95 07/16/19 04:00 107 H 22 79/52 L 94 07/16/19 03:51 106 H 21 84/57 L 93 07/16/19 03:36 108 H 21 91/62 L 94 07/16/19 03:30 108 H 21 94 07/16/19 03:21 109 H 21 92/62 L 94 07/16/19 03:13 108 H 19 93/62 L 95 07/16/19 03:06 104 H 17 80/55 L 94 07/16/19 03:00 102 H 20 93 07/16/19 02:30 102 H 18 94 07/16/19 02:00 105 H 21 96 07/16/19 01:30 104 H 21 96 07/16/19 01:11 103 H 24 78/50 L 97 07/16/19 01:07 102 H 24 70/48 L 95 07/16/19 01:00 103 H 24 93 07/16/19 00:40 106 H 25 H 129/113 H 94 07/16/19 00:34 108 H 29 H 121/80 81 L Laboratory Results 07/16/19 07/16/19 07/16/19 Range/Units Unknown 04:44 04:21 WBC (4.8-10.8) K/uL RBC (4.7-6.1) M/uL Hgb (14.0-18.0) g/dL Hct (42-52) % MCV (80-100) fL MCH (25-34) pg MCHC (32-36) g/dL RDW Std Deviation (36.4-46.3) fL RDW Coeff of Cecilia (11.5-14.5) % Plt Count (130-400) K/uL MPV (7.4-10.4) fL Immature Gran % (Auto) % Neut % (Auto) % Lymph % (Auto) % [place] % (Auto) % Eos % (Auto) % Baso % (Auto) % Immature Gran # (Auto) (0.00-0.02) K/uL Neut # (Auto) (1.4-6.5) K/uL Lymph # (Auto) (1.2-3.4) K/uL [place] # (Auto) (0.11-0.59) K/uL Eos # (Auto) (0-0.5) K/uL Baso # (Auto) (0-0.2) K/uL Dohle Bodies Macrocytosis PT (9.0-12.0) Seconds INR (0.9-1.1) Sodium (136-145) mmol/L Potassium (3.5-5.1) mmol/L Chloride (98-107) mmol/L Carbon Dioxide (21-32) mmol/L Anion Gap (3-11) BUN (7-18) mg/dl Creatinine (0.6-1.4) mg/dl Est Cr Clr Drug Dosing ml/min Est GFR ( Amer) Est GFR (Non-Af Amer) BUN/Creatinine Ratio (10-20) Glucose (70-99) mg/dl Lactate 1.8 (0.4-2.0) mmol/L Calcium (8.5-10.1) mg/dl Ionized Calcium (1.12-1.32) mmol/L Phosphorus (2.5-4.9) mg/dl Magnesium (1.8-2.4) mg/dl Total Bilirubin (0.2-1) mg/dl Direct Bilirubin (0-0.2) mg/dl AST (15-37) U/L ALT (12-78) U/L Alkaline Phosphatase (45-117) U/L Lactate Dehydrogenase (87-241) U/L Total Creatine Kinase (39-308) U/L CK-MB (CK-2) (0.5-3.6) ng/ml CK/CKMB % Calc Troponin I (0-0.045) ng/ml NT-Pro-B Natriuret Pep (0-900) pg/ml Total Protein (6.4-8.2) gm/dl Albumin (3.4-5.0) gm/dl Globulin (2.5-4.0) gm/dl Albumin/Globulin Ratio (0.9-2) Procalcitonin 8.16 H (0-0.5) ng/ml TSH (0.300-4.500) uIu/ml Urine Color Urine Appearance (Clear) Urine pH (4.5-7.5) Ur Specific [place] (1.000-1.030) Urine Protein (Negative) Urine Glucose (UA) (Negative) Urine Ketones (Negative) Urine Blood (Negative) Urine Nitrite (Negative) Urine Bilirubin (Negative) Urine Urobilinogen (Negative) Ur Leukocyte Esterase (Negative) Urine WBC (Auto) (0-5) /hpf Urine RBC (Auto) (0-4) /hpf U Hyaline Cast (Auto) (0-5) /lpf U Epithel Cells (Auto) (0-5) /lpf Urine Bacteria (Auto) (Negative) Urine Crystals Uric Acid Crystals (None Prsent) Urine Mucus (None Prsent) Fluid Neutrophils % % Fluid Lymphocytes % % Fluid Eosinophils % % Fluid Meso/Macro/Pinal % % Fluid Urea Nitrogen Src Fluid Urea Nitrogen Fluid CEA Pleural Fluid Source Pleural Color Pleural Appearance Pleural pH (7.3-7.4) Pleural WBC /uL Pleural RBC /uL Pleural Total Protein g/dl Pleural Albumin g/dl Pleural LDH U/L Pleural Glucose mg/dl Pleural Amylase U/L Pleural Cholesterol Pleural Triglycerides mg/dl Nasal Screen MRSA (PCR) (Negative) Stl C. diff Tox B Gene Positive Cdiff Gene H (Neg) Stl C.difficile Tox A&B Positive Cdiff Toxin A* (Negative) Adenovirus (PCR) (NotDetected) B. pertussis DNA (PCR) (NotDetected) B.parapertussis DNA PCR (NotDetected) C. pneumoniae DNA (PCR) (NotDetected) Coronavirus OC43 (PCR) (NotDetected) Coronavirus HKU1 (PCR) (NotDetected) Coronavirus 229E (PCR) (NotDetected) Coronavirus NL63 (PCR) (NotDetected) Human Metapneumovir PCR (NotDetected) Influenza Type A (PCR) (NotDetected) Influenza Type B (PCR) (NotDetected) M. pneumoniae (PCR) (NotDetected) Parainfluenza 1 (PCR) (NotDetected) Parainfluenza 2 (PCR) (NotDetected) Parainfluenza 3 (PCR) (NotDetected) Parainfluenza 4 (PCR) (NotDetected) RSV (PCR) (NotDetected) Entero/Rhino (PCR) (NotDetected) 07/16/19 07/16/19 07/16/19 Range/Units 04:14 04:00 00:36 WBC 33.79 H* (4.8-10.8) K/uL RBC 2.89 L (4.7-6.1) M/uL Hgb 10.6 L (14.0-18.0) g/dL Hct 31.8 L (42-52) % MCV 110.0 H (80-100) fL MCH 36.7 H (25-34) pg MCHC 33.3 (32-36) g/dL RDW Std Deviation 61.5 H (36.4-46.3) fL RDW Coeff of Cecilia 15.4 H (11.5-14.5) % Plt Count 195 (130-400) K/uL MPV 9.6 (7.4-10.4) fL Immature Gran % (Auto) 0.7 % Neut % (Auto) 89.1 % Lymph % (Auto) 2.5 % [place] % (Auto) 7.5 % Eos % (Auto) 0.0 % Baso % (Auto) 0.2 % Immature Gran # (Auto) 0.24 H (0.00-0.02) K/uL Neut # (Auto) 30.10 H (1.4-6.5) K/uL Lymph # (Auto) 0.85 L (1.2-3.4) K/uL [place] # (Auto) 2.54 H (0.11-0.59) K/uL Eos # (Auto) 0.00 (0-0.5) K/uL Baso # (Auto) 0.06 (0-0.2) K/uL Dohle Bodies 1+ Macrocytosis Present PT (9.0-12.0) Seconds INR (0.9-1.1) Sodium 142 (136-145) mmol/L Potassium 3.4 L D (3.5-5.1) mmol/L Chloride 114 H (98-107) mmol/L Carbon Dioxide 19 L (21-32) mmol/L Anion Gap 9.0 (3-11) BUN 24 H (7-18) mg/dl Creatinine 1.33 (0.6-1.4) mg/dl Est Cr Clr Drug Dosing 38.8 ml/min Est GFR ( Amer) 60.6 Est GFR (Non-Af Amer) 52.3 BUN/Creatinine Ratio 17.8 (10-20) Glucose 138 H (70-99) mg/dl Lactate (0.4-2.0) mmol/L Calcium 6.9 L (8.5-10.1) mg/dl Ionized Calcium (1.12-1.32) mmol/L Phosphorus 3.1 (2.5-4.9) mg/dl Magnesium 1.6 L (1.8-2.4) mg/dl Total Bilirubin 3.1 H (0.2-1) mg/dl Direct Bilirubin 0.7 H (0-0.2) mg/dl AST 40 H (15-37) U/L ALT 18 (12-78) U/L Alkaline Phosphatase 78 (45-117) U/L Lactate Dehydrogenase 256 H (87-241) U/L Total Creatine Kinase (39-308) U/L CK-MB (CK-2) (0.5-3.6) ng/ml CK/CKMB % Calc Troponin I 0.408 H* (0-0.045) ng/ml NT-Pro-B Natriuret Pep (0-900) pg/ml Total Protein 5.3 L D (6.4-8.2) gm/dl Albumin 1.9 L (3.4-5.0) gm/dl Globulin (2.5-4.0) gm/dl Albumin/Globulin Ratio (0.9-2) Procalcitonin (0-0.5) ng/ml TSH (0.300-4.500) uIu/ml Urine Color Urine Appearance (Clear) Urine pH (4.5-7.5) Ur Specific [place] (1.000-1.030) Urine Protein (Negative) Urine Glucose (UA) (Negative) Urine Ketones (Negative) Urine Blood (Negative) Urine Nitrite (Negative) Urine Bilirubin (Negative) Urine Urobilinogen (Negative) Ur Leukocyte Esterase (Negative) Urine WBC (Auto) (0-5) /hpf Urine RBC (Auto) (0-4) /hpf U Hyaline Cast (Auto) (0-5) /lpf U Epithel Cells (Auto) (0-5) /lpf Urine Bacteria (Auto) (Negative) Urine Crystals Uric Acid Crystals (None Prsent) Urine Mucus (None Prsent) Fluid Neutrophils % % Fluid Lymphocytes % % Fluid Eosinophils % % Fluid Meso/Macro/Pinal % % Fluid Urea Nitrogen Src Fluid Urea Nitrogen Fluid CEA Pleural Fluid Source Pleural Color Pleural Appearance Pleural pH (7.3-7.4) Pleural WBC /uL Pleural RBC /uL Pleural Total Protein g/dl Pleural Albumin g/dl Pleural LDH U/L Pleural Glucose mg/dl Pleural Amylase U/L Pleural Cholesterol Pleural Triglycerides mg/dl Nasal Screen MRSA (PCR) (Negative) Stl C. diff Tox B Gene (Neg) Stl C.difficile Tox A&B (Negative) Adenovirus (PCR) (NotDetected) B. pertussis DNA (PCR) (NotDetected) B.parapertussis DNA PCR (NotDetected) C. pneumoniae DNA (PCR) (NotDetected) Coronavirus OC43 (PCR) (NotDetected) Coronavirus HKU1 (PCR) (NotDetected) Coronavirus 229E (PCR) (NotDetected) Coronavirus NL63 (PCR) (NotDetected) Human Metapneumovir PCR (NotDetected) Influenza Type A (PCR) (NotDetected) Influenza Type B (PCR) (NotDetected) M. pneumoniae (PCR) (NotDetected) Parainfluenza 1 (PCR) (NotDetected) Parainfluenza 2 (PCR) (NotDetected) Parainfluenza 3 (PCR) (NotDetected) Parainfluenza 4 (PCR) (NotDetected) RSV (PCR) (NotDetected) Entero/Rhino (PCR) (NotDetected) 07/16/19 07/16/19 07/16/19 Range/Units 00:35 00:35 00:35 WBC (4.8-10.8) K/uL RBC (4.7-6.1) M/uL Hgb (14.0-18.0) g/dL Hct (42-52) % MCV (80-100) fL MCH (25-34) pg MCHC (32-36) g/dL RDW Std Deviation (36.4-46.3) fL RDW Coeff of Cecilia (11.5-14.5) % Plt Count (130-400) K/uL MPV (7.4-10.4) fL Immature Gran % (Auto) % Neut % (Auto) % Lymph % (Auto) % [place] % (Auto) % Eos % (Auto) % Baso % (Auto) % Immature Gran # (Auto) (0.00-0.02) K/uL Neut # (Auto) (1.4-6.5) K/uL Lymph # (Auto) (1.2-3.4) K/uL [place] # (Auto) (0.11-0.59) K/uL Eos # (Auto) (0-0.5) K/uL Baso # (Auto) (0-0.2) K/uL Dohle Bodies Macrocytosis PT (9.0-12.0) Seconds INR (0.9-1.1) Sodium (136-145) mmol/L Potassium (3.5-5.1) mmol/L Chloride (98-107) mmol/L Carbon Dioxide (21-32) mmol/L Anion Gap (3-11) BUN (7-18) mg/dl Creatinine (0.6-1.4) mg/dl Est Cr Clr Drug Dosing ml/min Est GFR ( Amer) Est GFR (Non-Af Amer) BUN/Creatinine Ratio (10-20) Glucose (70-99) mg/dl Lactate (0.4-2.0) mmol/L Calcium (8.5-10.1) mg/dl Ionized Calcium (1.12-1.32) mmol/L Phosphorus (2.5-4.9) mg/dl Magnesium (1.8-2.4) mg/dl Total Bilirubin (0.2-1) mg/dl Direct Bilirubin (0-0.2) mg/dl AST (15-37) U/L ALT (12-78) U/L Alkaline Phosphatase (45-117) U/L Lactate Dehydrogenase (87-241) U/L Total Creatine Kinase (39-308) U/L CK-MB (CK-2) (0.5-3.6) ng/ml CK/CKMB % Calc Troponin I (0-0.045) ng/ml NT-Pro-B Natriuret Pep (0-900) pg/ml Total Protein (6.4-8.2) gm/dl Albumin (3.4-5.0) gm/dl Globulin (2.5-4.0) gm/dl Albumin/Globulin Ratio (0.9-2) Procalcitonin (0-0.5) ng/ml TSH (0.300-4.500) uIu/ml Urine Color Urine Appearance (Clear) Urine pH (4.5-7.5) Ur Specific [place] (1.000-1.030) Urine Protein (Negative) Urine Glucose (UA) (Negative) Urine Ketones (Negative) Urine Blood (Negative) Urine Nitrite (Negative) Urine Bilirubin (Negative) Urine Urobilinogen (Negative) Ur Leukocyte Esterase (Negative) Urine WBC (Auto) (0-5) /hpf Urine RBC (Auto) (0-4) /hpf U Hyaline Cast (Auto) (0-5) /lpf U Epithel Cells (Auto) (0-5) /lpf Urine Bacteria (Auto) (Negative) Urine Crystals Uric Acid Crystals (None Prsent) Urine Mucus (None Prsent) Fluid Neutrophils % 9 % Fluid Lymphocytes % 28 % Fluid Eosinophils % 0 % Fluid Meso/Macro/Pinal % 63 % Fluid Urea Nitrogen Src Pending Fluid Urea Nitrogen Pending Fluid CEA Pending Pleural Fluid Source LEFT LUNG Pleural Color RED Pleural Appearance CLOUDY Pleural pH (7.3-7.4) Pleural WBC 475 /uL Pleural RBC 19544 /uL Pleural Total Protein 2.8 g/dl Pleural Albumin 1.6 g/dl Pleural LDH 114 U/L Pleural Glucose 127 mg/dl Pleural Amylase 14 U/L Pleural Cholesterol Pending Pleural Triglycerides 27 mg/dl Nasal Screen MRSA (PCR) (Negative) Stl C. diff Tox B Gene (Neg) Stl C.difficile Tox A&B (Negative) Adenovirus (PCR) (NotDetected) B. pertussis DNA (PCR) (NotDetected) B.parapertussis DNA PCR (NotDetected) C. pneumoniae DNA (PCR) (NotDetected) Coronavirus OC43 (PCR) (NotDetected) Coronavirus HKU1 (PCR) (NotDetected) Coronavirus 229E (PCR) (NotDetected) Coronavirus NL63 (PCR) (NotDetected) Human Metapneumovir PCR (NotDetected) Influenza Type A (PCR) (NotDetected) Influenza Type B (PCR) (NotDetected) M. pneumoniae (PCR) (NotDetected) Parainfluenza 1 (PCR) (NotDetected) Parainfluenza 2 (PCR) (NotDetected) Parainfluenza 3 (PCR) (NotDetected) Parainfluenza 4 (PCR) (NotDetected) RSV (PCR) (NotDetected) Entero/Rhino (PCR) (NotDetected) 07/16/19 07/16/19 07/16/19 Range/Units 00:34 00:34 00:25 WBC (4.8-10.8) K/uL RBC (4.7-6.1) M/uL Hgb (14.0-18.0) g/dL Hct (42-52) % MCV (80-100) fL MCH (25-34) pg MCHC (32-36) g/dL RDW Std Deviation (36.4-46.3) fL RDW Coeff of Cecilia (11.5-14.5) % Plt Count (130-400) K/uL MPV (7.4-10.4) fL Immature Gran % (Auto) % Neut % (Auto) % Lymph % (Auto) % [place] % (Auto) % Eos % (Auto) % Baso % (Auto) % Immature Gran # (Auto) (0.00-0.02) K/uL Neut # (Auto) (1.4-6.5) K/uL Lymph # (Auto) (1.2-3.4) K/uL [place] # (Auto) (0.11-0.59) K/uL Eos # (Auto) (0-0.5) K/uL Baso # (Auto) (0-0.2) K/uL Dohle Bodies Macrocytosis PT (9.0-12.0) Seconds INR (0.9-1.1) Sodium 145 (136-145) mmol/L Potassium 2.8 L (3.5-5.1) mmol/L Chloride 117 H (98-107) mmol/L Carbon Dioxide 19 L (21-32) mmol/L Anion Gap 9.0 (3-11) BUN 21 H (7-18) mg/dl Creatinine 1.22 (0.6-1.4) mg/dl Est Cr Clr Drug Dosing 42.3 ml/min Est GFR ( Amer) 67.3 Est GFR (Non-Af Amer) 58.0 BUN/Creatinine Ratio 17.0 (10-20) Glucose 104 H (70-99) mg/dl Lactate 2.6 H* (0.4-2.0) mmol/L Calcium 6.1 L D (8.5-10.1) mg/dl Ionized Calcium (1.12-1.32) mmol/L Phosphorus (2.5-4.9) mg/dl Magnesium (1.8-2.4) mg/dl Total Bilirubin (0.2-1) mg/dl Direct Bilirubin (0-0.2) mg/dl AST (15-37) U/L ALT (12-78) U/L Alkaline Phosphatase (45-117) U/L Lactate Dehydrogenase (87-241) U/L Total Creatine Kinase (39-308) U/L CK-MB (CK-2) (0.5-3.6) ng/ml CK/CKMB % Calc Troponin I (0-0.045) ng/ml NT-Pro-B Natriuret Pep (0-900) pg/ml Total Protein (6.4-8.2) gm/dl Albumin (3.4-5.0) gm/dl Globulin (2.5-4.0) gm/dl Albumin/Globulin Ratio (0.9-2) Procalcitonin (0-0.5) ng/ml TSH (0.300-4.500) uIu/ml Urine Color Urine Appearance (Clear) Urine pH (4.5-7.5) Ur Specific [place] (1.000-1.030) Urine Protein (Negative) Urine Glucose (UA) (Negative) Urine Ketones (Negative) Urine Blood (Negative) Urine Nitrite (Negative) Urine Bilirubin (Negative) Urine Urobilinogen (Negative) Ur Leukocyte Esterase (Negative) Urine WBC (Auto) (0-5) /hpf Urine RBC (Auto) (0-4) /hpf U Hyaline Cast (Auto) (0-5) /lpf U Epithel Cells (Auto) (0-5) /lpf Urine Bacteria (Auto) (Negative) Urine Crystals Uric Acid Crystals (None Prsent) Urine Mucus (None Prsent) Fluid Neutrophils % % Fluid Lymphocytes % % Fluid Eosinophils % % Fluid Meso/Macro/Pinal % % Fluid Urea Nitrogen Src Fluid Urea Nitrogen Fluid CEA Pleural Fluid Source Pleural Color Pleural Appearance Pleural pH 7.45 H (7.3-7.4) Pleural WBC /uL Pleural RBC /uL Pleural Total Protein g/dl Pleural Albumin g/dl Pleural LDH U/L Pleural Glucose mg/dl Pleural Amylase U/L Pleural Cholesterol Pleural Triglycerides mg/dl Nasal Screen MRSA (PCR) (Negative) Stl C. diff Tox B Gene (Neg) Stl C.difficile Tox A&B (Negative) Adenovirus (PCR) (NotDetected) B. pertussis DNA (PCR) (NotDetected) B.parapertussis DNA PCR (NotDetected) C. pneumoniae DNA (PCR) (NotDetected) Coronavirus OC43 (PCR) (NotDetected) Coronavirus HKU1 (PCR) (NotDetected) Coronavirus 229E (PCR) (NotDetected) Coronavirus NL63 (PCR) (NotDetected) Human Metapneumovir PCR (NotDetected) Influenza Type A (PCR) (NotDetected) Influenza Type B (PCR) (NotDetected) M. pneumoniae (PCR) (NotDetected) Parainfluenza 1 (PCR) (NotDetected) Parainfluenza 2 (PCR) (NotDetected) Parainfluenza 3 (PCR) (NotDetected) Parainfluenza 4 (PCR) (NotDetected) RSV (PCR) (NotDetected) Entero/Rhino (PCR) (NotDetected) 07/15/19 07/15/19 07/15/19 Range/Units 21:29 21:29 21:29 WBC (4.8-10.8) K/uL RBC (4.7-6.1) M/uL Hgb (14.0-18.0) g/dL Hct (42-52) % MCV (80-100) fL MCH (25-34) pg MCHC (32-36) g/dL RDW Std Deviation (36.4-46.3) fL RDW Coeff of Cecilia (11.5-14.5) % Plt Count (130-400) K/uL MPV (7.4-10.4) fL Immature Gran % (Auto) % Neut % (Auto) % Lymph % (Auto) % [place] % (Auto) % Eos % (Auto) % Baso % (Auto) % Immature Gran # (Auto) (0.00-0.02) K/uL Neut # (Auto) (1.4-6.5) K/uL Lymph # (Auto) (1.2-3.4) K/uL [place] # (Auto) (0.11-0.59) K/uL Eos # (Auto) (0-0.5) K/uL Baso # (Auto) (0-0.2) K/uL Dohle Bodies Macrocytosis PT 12.9 H (9.0-12.0) Seconds INR 1.2 H (0.9-1.1) Sodium (136-145) mmol/L Potassium (3.5-5.1) mmol/L Chloride (98-107) mmol/L Carbon Dioxide (21-32) mmol/L Anion Gap (3-11) BUN (7-18) mg/dl Creatinine (0.6-1.4) mg/dl Est Cr Clr Drug Dosing ml/min Est GFR ( Amer) Est GFR (Non-Af Amer) BUN/Creatinine Ratio (10-20) Glucose (70-99) mg/dl Lactate 2.4 H* (0.4-2.0) mmol/L Calcium (8.5-10.1) mg/dl Ionized Calcium 0.91 L (1.12-1.32) mmol/L Phosphorus (2.5-4.9) mg/dl Magnesium (1.8-2.4) mg/dl Total Bilirubin (0.2-1) mg/dl Direct Bilirubin (0-0.2) mg/dl AST (15-37) U/L ALT (12-78) U/L Alkaline Phosphatase (45-117) U/L Lactate Dehydrogenase (87-241) U/L Total Creatine Kinase (39-308) U/L CK-MB (CK-2) (0.5-3.6) ng/ml CK/CKMB % Calc Troponin I (0-0.045) ng/ml NT-Pro-B Natriuret Pep (0-900) pg/ml Total Protein (6.4-8.2) gm/dl Albumin (3.4-5.0) gm/dl Globulin (2.5-4.0) gm/dl Albumin/Globulin Ratio (0.9-2) Procalcitonin (0-0.5) ng/ml TSH (0.300-4.500) uIu/ml Urine Color Urine Appearance (Clear) Urine pH (4.5-7.5) Ur Specific [place] (1.000-1.030) Urine Protein (Negative) Urine Glucose (UA) (Negative) Urine Ketones (Negative) Urine Blood (Negative) Urine Nitrite (Negative) Urine Bilirubin (Negative) Urine Urobilinogen (Negative) Ur Leukocyte Esterase (Negative) Urine WBC (Auto) (0-5) /hpf Urine RBC (Auto) (0-4) /hpf U Hyaline Cast (Auto) (0-5) /lpf U Epithel Cells (Auto) (0-5) /lpf Urine Bacteria (Auto) (Negative) Urine Crystals Uric Acid Crystals (None Prsent) Urine Mucus (None Prsent) Fluid Neutrophils % % Fluid Lymphocytes % % Fluid Eosinophils % % Fluid Meso/Macro/Pinal % % Fluid Urea Nitrogen Src Fluid Urea Nitrogen Fluid CEA Pleural Fluid Source Pleural Color Pleural Appearance Pleural pH (7.3-7.4) Pleural WBC /uL Pleural RBC /uL Pleural Total Protein g/dl Pleural Albumin g/dl Pleural LDH U/L Pleural Glucose mg/dl Pleural Amylase U/L Pleural Cholesterol Pleural Triglycerides mg/dl Nasal Screen MRSA (PCR) (Negative) Stl C. diff Tox B Gene (Neg) Stl C.difficile Tox A&B (Negative) Adenovirus (PCR) (NotDetected) B. pertussis DNA (PCR) (NotDetected) B.parapertussis DNA PCR (NotDetected) C. pneumoniae DNA (PCR) (NotDetected) Coronavirus OC43 (PCR) (NotDetected) Coronavirus HKU1 (PCR) (NotDetected) Coronavirus 229E (PCR) (NotDetected) Coronavirus NL63 (PCR) (NotDetected) Human Metapneumovir PCR (NotDetected) Influenza Type A (PCR) (NotDetected) Influenza Type B (PCR) (NotDetected) M. pneumoniae (PCR) (NotDetected) Parainfluenza 1 (PCR) (NotDetected) Parainfluenza 2 (PCR) (NotDetected) Parainfluenza 3 (PCR) (NotDetected) Parainfluenza 4 (PCR) (NotDetected) RSV (PCR) (NotDetected) Entero/Rhino (PCR) (NotDetected) 07/15/19 07/15/19 07/15/19 Range/Units 21:25 20:45 19:53 WBC (4.8-10.8) K/uL RBC (4.7-6.1) M/uL Hgb (14.0-18.0) g/dL Hct (42-52) % MCV (80-100) fL MCH (25-34) pg MCHC (32-36) g/dL RDW Std Deviation (36.4-46.3) fL RDW Coeff of Cecilia (11.5-14.5) % Plt Count (130-400) K/uL MPV (7.4-10.4) fL Immature Gran % (Auto) % Neut % (Auto) % Lymph % (Auto) % P[place] % (Auto) % Eos % (Auto) % Baso % (Auto) % Immature Gran # (Auto) (0.00-0.02) K/uL Neut # (Auto) (1.4-6.5) K/uL Lymph # (Auto) (1.2-3.4) K/uL Pinal # (Auto) (0.11-0.59) K/uL Eos # (Auto) (0-0.5) K/uL Baso # (Auto) (0-0.2) K/uL Dohle Bodies Macrocytosis PT (9.0-12.0) Seconds INR (0.9-1.1) Sodium (136-145) mmol/L Potassium (3.5-5.1) mmol/L Chloride (98-107) mmol/L Carbon Dioxide (21-32) mmol/L Anion Gap (3-11) BUN (7-18) mg/dl Creatinine (0.6-1.4) mg/dl Est Cr Clr Drug Dosing ml/min Est GFR ( Amer) Est GFR (Non-Af Amer) BUN/Creatinine Ratio (10-20) Glucose (70-99) mg/dl Lactate (0.4-2.0) mmol/L Calcium (8.5-10.1) mg/dl Ionized Calcium (1.12-1.32) mmol/L Phosphorus (2.5-4.9) mg/dl Magnesium (1.8-2.4) mg/dl Total Bilirubin (0.2-1) mg/dl Direct Bilirubin (0-0.2) mg/dl AST (15-37) U/L ALT (12-78) U/L Alkaline Phosphatase (45-117) U/L Lactate Dehydrogenase 282 H (87-241) U/L Total Creatine Kinase (39-308) U/L CK-MB (CK-2) (0.5-3.6) ng/ml CK/CKMB % Calc Troponin I (0-0.045) ng/ml NT-Pro-B Natriuret Pep (0-900) pg/ml Total Protein (6.4-8.2) gm/dl Albumin (3.4-5.0) gm/dl Globulin (2.5-4.0) gm/dl Albumin/Globulin Ratio (0.9-2) Procalcitonin (0-0.5) ng/ml TSH (0.300-4.500) uIu/ml Urine Color Urine Appearance (Clear) Urine pH (4.5-7.5) Ur Specific [place] (1.000-1.030) Urine Protein (Negative) Urine Glucose (UA) (Negative) Urine Ketones (Negative) Urine Blood (Negative) Urine Nitrite (Negative) Urine Bilirubin (Negative) Urine Urobilinogen (Negative) Ur Leukocyte Esterase (Negative) Urine WBC (Auto) (0-5) /hpf Urine RBC (Auto) (0-4) /hpf U Hyaline Cast (Auto) (0-5) /lpf U Epithel Cells (Auto) (0-5) /lpf Urine Bacteria (Auto) (Negative) Urine Crystals Uric Acid Crystals (None Prsent) Urine Mucus (None Prsent) Fluid Neutrophils % % Fluid Lymphocytes % % Fluid Eosinophils % % Fluid Meso/Macro/Pinal % % Fluid Urea Nitrogen Src Fluid Urea Nitrogen Fluid CEA Pleural Fluid Source Pleural Color Pleural Appearance Pleural pH (7.3-7.4) Pleural WBC /uL Pleural RBC /uL Pleural Total Protein g/dl Pleural Albumin g/dl Pleural LDH U/L Pleural Glucose mg/dl Pleural Amylase U/L Pleural Cholesterol Pleural Triglycerides mg/dl Nasal Screen MRSA (PCR) Negative (Negative) Stl C. diff Tox B Gene (Neg) Stl C.difficile Tox A&B (Negative) Adenovirus (PCR) Not Detected (NotDetected) B. pertussis DNA (PCR) Not Detected (NotDetected) B.parapertussis DNA PCR Not Detected (NotDetected) C. pneumoniae DNA (PCR) Not Detected (NotDetected) Coronavirus OC43 (PCR) Not Detected (NotDetected) Coronavirus HKU1 (PCR) Not Detected (NotDetected) Coronavirus 229E (PCR) Not Detected (NotDetected) Coronavirus NL63 (PCR) Not Detected (NotDetected) Human Metapneumovir PCR Not Detected (NotDetected) Influenza Type A (PCR) Not Detected (NotDetected) Influenza Type B (PCR) Not Detected (NotDetected) M. pneumoniae (PCR) Not Detected (NotDetected) Parainfluenza 1 (PCR) Not Detected (NotDetected) Parainfluenza 2 (PCR) Not Detected (NotDetected) Parainfluenza 3 (PCR) Not Detected (NotDetected) Parainfluenza 4 (PCR) Not Detected (NotDetected) RSV (PCR) Not Detected (NotDetected) Entero/Rhino (PCR) Not Detected (NotDetected) 07/15/19 07/15/19 07/15/19 Range/Units 12:55 11:56 11:56 WBC 30.22 H* (4.8-10.8) K/uL RBC 3.18 L (4.7-6.1) M/uL Hgb 11.7 L (14.0-18.0) g/dL Hct 35.1 L (42-52) % MCV 110.4 H (80-100) fL MCH 36.8 H (25-34) pg MCHC 33.3 (32-36) g/dL RDW Std Deviation 60.3 H (36.4-46.3) fL RDW Coeff of Cecilia 15.2 H (11.5-14.5) % Plt Count 229 (130-400) K/uL MPV 9.7 (7.4-10.4) fL Immature Gran % (Auto) 0.6 % Neut % (Auto) 74.2 % Lymph % (Auto) 11.9 % [place] % (Auto) 13.2 % Eos % (Auto) 0.0 % Baso % (Auto) 0.1 % Immature Gran # (Auto) 0.17 H (0.00-0.02) K/uL Neut # (Auto) 22.42 H (1.4-6.5) K/uL Lymph # (Auto) 3.61 H (1.2-3.4) K/uL [place] # (Auto) 3.99 H (0.11-0.59) K/uL Eos # (Auto) 0.00 (0-0.5) K/uL Baso # (Auto) 0.03 (0-0.2) K/uL Dohle Bodies Macrocytosis Present PT (9.0-12.0) Seconds INR (0.9-1.1) Sodium (136-145) mmol/L Potassium (3.5-5.1) mmol/L Chloride (98-107) mmol/L Carbon Dioxide (21-32) mmol/L Anion Gap (3-11) BUN (7-18) mg/dl Creatinine (0.6-1.4) mg/dl Est Cr Clr Drug Dosing ml/min Est GFR ( Amer) Est GFR (Non-Af Amer) BUN/Creatinine Ratio (10-20) Glucose (70-99) mg/dl Lactate (0.4-2.0) mmol/L Calcium (8.5-10.1) mg/dl Ionized Calcium (1.12-1.32) mmol/L Phosphorus (2.5-4.9) mg/dl Magnesium (1.8-2.4) mg/dl Total Bilirubin (0.2-1) mg/dl Direct Bilirubin (0-0.2) mg/dl AST (15-37) U/L ALT (12-78) U/L Alkaline Phosphatase (45-117) U/L Lactate Dehydrogenase (87-241) U/L Total Creatine Kinase (39-308) U/L CK-MB (CK-2) (0.5-3.6) ng/ml CK/CKMB % Calc Troponin I (0-0.045) ng/ml NT-Pro-B Natriuret Pep (0-900) pg/ml Total Protein (6.4-8.2) gm/dl Albumin (3.4-5.0) gm/dl Globulin (2.5-4.0) gm/dl Albumin/Globulin Ratio (0.9-2) Procalcitonin 0.35 (0-0.5) ng/ml TSH (0.300-4.500) uIu/ml Urine Color Dark Yellow Urine Appearance Turbid A (Clear) Urine pH 5.0 (4.5-7.5) Ur Specific [place] > 1.045 H (1.000-1.030) Urine Protein 1+ H (Negative) Urine Glucose (UA) Negative (Negative) Urine Ketones Trace H (Negative) Urine Blood 3+ H (Negative) Urine Nitrite Negative (Negative) Urine Bilirubin Negative (Negative) Urine Urobilinogen Negative (Negative) Ur Leukocyte Esterase Trace H (Negative) Urine WBC (Auto) 5-10 H (0-5) /hpf Urine RBC (Auto) >30 H (0-4) /hpf U Hyaline Cast (Auto) 1-5 (0-5) /lpf U Epithel Cells (Auto) 20-30 H (0-5) /lpf Urine Bacteria (Auto) Negative (Negative) Urine Crystals Not Reportable Uric Acid Crystals Present A (None Prsent) Urine Mucus Present A (None Prsent) Fluid Neutrophils % % Fluid Lymphocytes % % Fluid Eosinophils % % Fluid Meso/Macro/Pinal % % Fluid Urea Nitrogen Src Fluid Urea Nitrogen Fluid CEA Pleural Fluid Source Pleural Color Pleural Appearance Pleural pH (7.3-7.4) Pleural WBC /uL Pleural RBC /uL Pleural Total Protein g/dl Pleural Albumin g/dl Pleural LDH U/L Pleural Glucose mg/dl Pleural Amylase U/L Pleural Cholesterol Pleural Triglycerides mg/dl Nasal Screen MRSA (PCR) (Negative) Stl C. diff Tox B Gene (Neg) Stl C.difficile Tox A&B (Negative) Adenovirus (PCR) (NotDetected) B. pertussis DNA (PCR) (NotDetected) B.parapertussis DNA PCR (NotDetected) C. pneumoniae DNA (PCR) (NotDetected) Coronavirus OC43 (PCR) (NotDetected) Coronavirus HKU1 (PCR) (NotDetected) Coronavirus 229E (PCR) (NotDetected) Coronavirus NL63 (PCR) (NotDetected) Human Metapneumovir PCR (NotDetected) Influenza Type A (PCR) (NotDetected) Influenza Type B (PCR) (NotDetected) M. pneumoniae (PCR) (NotDetected) Parainfluenza 1 (PCR) (NotDetected) Parainfluenza 2 (PCR) (NotDetected) Parainfluenza 3 (PCR) (NotDetected) Parainfluenza 4 (PCR) (NotDetected) RSV (PCR) (NotDetected) Entero/Rhino (PCR) (NotDetected) 07/15/19 Range/Units 11:56 WBC (4.8-10.8) K/uL RBC (4.7-6.1) M/uL Hgb (14.0-18.0) g/dL Hct (42-52) % MCV (80-100) fL MCH (25-34) pg MCHC (32-36) g/dL RDW Std Deviation (36.4-46.3) fL RDW Coeff of Cecilia (11.5-14.5) % Plt Count (130-400) K/uL MPV (7.4-10.4) fL Immature Gran % (Auto) % Neut % (Auto) % Lymph % (Auto) % [place] % (Auto) % Eos % (Auto) % Baso % (Auto) % Immature Gran # (Auto) (0.00-0.02) K/uL Neut # (Auto) (1.4-6.5) K/uL Lymph # (Auto) (1.2-3.4) K/uL [place] # (Auto) (0.11-0.59) K/uL Eos # (Auto) (0-0.5) K/uL Baso # (Auto) (0-0.2) K/uL Dohle Bodies Macrocytosis PT (9.0-12.0) Seconds INR (0.9-1.1) Sodium (136-145) mmol/L Potassium (3.5-5.1) mmol/L Chloride (98-107) mmol/L Carbon Dioxide (21-32) mmol/L Anion Gap (3-11) BUN (7-18) mg/dl Creatinine (0.6-1.4) mg/dl Est Cr Clr Drug Dosing ml/min Est GFR ( Amer) Est GFR (Non-Af Amer) BUN/Creatinine Ratio (10-20) Glucose (70-99) mg/dl Lactate (0.4-2.0) mmol/L Calcium (8.5-10.1) mg/dl Ionized Calcium (1.12-1.32) mmol/L Phosphorus (2.5-4.9) mg/dl Magnesium (1.8-2.4) mg/dl Total Bilirubin 2.6 H (0.2-1) mg/dl Direct Bilirubin (0-0.2) mg/dl AST (15-37) U/L ALT (12-78) U/L Alkaline Phosphatase 109 (45-117) U/L Lactate Dehydrogenase (87-241) U/L Total Creatine Kinase 65 (39-308) U/L CK-MB (CK-2) < 1.0 (0.5-3.6) ng/ml CK/CKMB % Calc TNP Troponin I 0.033 (0-0.045) ng/ml NT-Pro-B Natriuret Pep 4093 H (0-900) pg/ml Total Protein 6.7 (6.4-8.2) gm/dl Albumin (3.4-5.0) gm/dl Globulin 4.0 (2.5-4.0) gm/dl Albumin/Globulin Ratio 0.7 L (0.9-2) Procalcitonin (0-0.5) ng/ml TSH 1.570 (0.300-4.500) uIu/ml Urine Color Urine Appearance (Clear) Urine pH (4.5-7.5) Ur Specific [place] (1.000-1.030) Urine Protein (Negative) Urine Glucose (UA) (Negative) Urine Ketones (Negative) Urine Blood (Negative) Urine Nitrite (Negative) Urine Bilirubin (Negative) Urine Urobilinogen (Negative) Ur Leukocyte Esterase (Negative) Urine WBC (Auto) (0-5) /hpf Urine RBC (Auto) (0-4) /hpf U Hyaline Cast (Auto) (0-5) /lpf U Epithel Cells (Auto) (0-5) /lpf Urine Bacteria (Auto) (Negative) Urine Crystals Uric Acid Crystals (None Prsent) Urine Mucus (None Prsent) Fluid Neutrophils % % Fluid Lymphocytes % % Fluid Eosinophils % % Fluid Meso/Macro/Pinal % % Fluid Urea Nitrogen Src Fluid Urea Nitrogen Fluid CEA Pleural Fluid Source Pleural Color Pleural Appearance Pleural pH (7.3-7.4) Pleural WBC /uL Pleural RBC /uL Pleural Total Protein g/dl Pleural Albumin g/dl Pleural LDH U/L Pleural Glucose mg/dl Pleural Amylase U/L Pleural Cholesterol Pleural Triglycerides mg/dl Nasal Screen MRSA (PCR) (Negative) Stl C. diff Tox B Gene (Neg) Stl C.difficile Tox A&B (Negative) Adenovirus (PCR) (NotDetected) B. pertussis DNA (PCR) (NotDetected) B.parapertussis DNA PCR (NotDetected) C. pneumoniae DNA (PCR) (NotDetected) Coronavirus OC43 (PCR) (NotDetected) Coronavirus HKU1 (PCR) (NotDetected) Coronavirus 229E (PCR) (NotDetected) Coronavirus NL63 (PCR) (NotDetected) Human Metapneumovir PCR (NotDetected) Influenza Type A (PCR) (NotDetected) Influenza Type B (PCR) (NotDetected) M. pneumoniae (PCR) (NotDetected) Parainfluenza 1 (PCR) (NotDetected) Parainfluenza 2 (PCR) (NotDetected) Parainfluenza 3 (PCR) (NotDetected) Parainfluenza 4 (PCR) (NotDetected) RSV (PCR) (NotDetected) Entero/Rhino (PCR) (NotDetected) Coding Level of Care Code Critical Care ea addt'l 30 min Diagnoses C. difficile colitis A04.72 Encephalopathy acute G93.40 History of recent chemotherapy AML (acute myeloblastic leukemia) C92.00 Severe sepsis with septic shock A41.9; R65.21 Admitted to intensive care unit Z78.9 Hypoalbuminemia E88.09 Pleural effusion J90 Pericardial effusion I31.3 Fever R50.9 Fever type: unspecified Anemia D64.9 Time Spent (min) 90 Comment I have personally spent 90 minutes of critical care time in the direct management of this patient. This is a life/limb threatening event. This includes time spent evaluating patient, direct bedside care, chart review, placing orders, interpretation of diagnostic studies, discussion with consultants, patient, and/or family members regarding treatment decisions, as well as other required patient management activities. This time is exclusive of all separately billable procedures, and teaching time and separate from and in addition to any other critical care service time. (1) Fever Fever type: unspecified Qualified Code(s): R50.9 - Fever, unspecified
[2019-07-16] MEDS ORDERED: DAPTOmycin 300 MG in SYRINGE 0 ML IV SCH (13:00)
--- NOTE | 2019-07-16 13:06 | Cardiac Catheterization ---
[facility] Data: [place] Cardiac Status Clinical evaluation leading to the procedure CAD Presenation: No Sxs, No angina Diagnostic Physicians Name: Reyes Jade MD Closure Device Recommendations: None Cardiac Cath Procedure Full Procedure Date July 16, 2019 Pre-Procedure Diagnosis Pre-Procedure Diagnosis: Cardiothoracic Symptom AUC Score AUC Score: n/a Post-Procedure Diagnosis Post-Procedure Diagnosis: Cardiothoracic Finding Procedure(s) Performed Procedure(s) Performed: Pericardiocentesis Peanut Vendor Reyes Jade MD Lane Attendant(s) none Estimated Blood Loss Estimated Blood Loss: None Medication(s) Medication(s): Lidocaine 1% and Versed Summary of Findings Procedure performed: Pericardiocentesis Staff therapy technician: Reyes Jade MD Indication: The patient is a 73-year-old gentleman admitted with fever, history of malignancy and moderate sized pericardial effusion. He has had some evidence of hemodynamic compromise and there is some question regarding the etiology of his presumed infection. He was therefore felt to be a good candidate for pericardiocentesis. Procedure detail The patient was taken to the cardiac catheterization suite in a fasting state. Patient was monitored electrocardiographically throughout today's procedure. The area around the xiphoid process was prepped and draped in usual sterile fashion. An area left lateral to the xiphoid process was then anesthetized using subcutaneous ministration of a lidocaine solution. Under ultrasound guidance a thin-walled 21-gauge needle was advanced into the pericardial space. This was heralded by return of serosanguineous fluid. A wire was passed through this needle and exchanged for a 5 [place] catheter. Agitated saline was advanced through the catheter and noted to enter the pericardial space on ultrasound. This catheter was then used to facilitate passage of a guidewire and exchanged for a pigtail drainage catheter. Pericardial fluid was subsequently removed under ultrasound guidance. After removal a sterile dressing was applied and the catheter secured in place. The catheter was subsequently attached to suction. The patient tolerated the procedure well. There were no immediate complications Findings: Initial blood pressure was 82/55 mmHg Approximately 450 cc of serosanguineous fluid was drained from the pericardial space Blood pressure at the conclusion of the procedure was 100/60 mmHg Fluid was sent for cytology, culture, cell count and assorted other tests. Plan: We will continue suction of the pericardial catheter. When there appears to be minimal drainage over the course of 24 hours we will remove the catheter Hemodynamics Rest Ao:: 80 or 55 mm Final Ao: 100/60 millimeters LV: n/a Recommendations Recommendations: None Specimens Specimens: Pericardial fluid Radiation Exposure (mGy) q Contrast (mls) q Drains Drains: Pericardial drain Anesthesia 1 mg Versed Procedural Complication(s) None Disposition ICU I attest to the content of the Intraoperative Record and any orders documented therein. Any exceptions are noted below. [facility] Card Cath Procedure Codes Therapeutic Services & Ancillary Proc Procedure 1: Cardiovascular Tx and Anc Procedures: 54993 Pericardiocentesis; initial Procedure 2: Cardiovascular Tx and Anc Procedures: 49764 Ultrasonic Guidance Pericardiocentesis PG Care Time/CCT Total # of Minutes Spent Total Time Spent with Patient: Total time spent is greater than 50% in coordination of care (as documented) at patient's floor/unit and/or counseling patient:
--- NOTE | 2019-07-16 13:52 | XRay Report ---
XR chest 1V portable HISTORY: 73 years-old Male post-pericardiocentesis COMPARISON: Chest radiograph 07/16/2019 TECHNIQUE: Portable AP view of the chest FINDINGS: Cardiac silhouette is enlarged, slightly decreased from comparison, notably the right heart border. H ypoinflation with bronchovascular crowding. Mild pulmonary vascular congestion with left greater than right bibasilar opacities and trace pleural effusions. No pneumothorax. Enteric tube distal tip proj ects superiorly within the expected location of the gastric cardia. Left IJ central venous catheter i s unchanged. Degenerative changes of the shoulders and spine. IMPRESSION: 1. Slightly decreased size of the cardiac silhouette status post pericardiocentesis. 2. Mild hypoinflation with pulmonary vascular congestion. 2. Small left and trace right pleural effusions with left greater than right bibasilar opacities. ACT 112: Negative or not required by law. The above report was generated using voice recognition software. It may contain grammatical, syntax o r spelling errors. Electronically signed by: Justin Inman M.D. 07/16/2019 1:51 PM
[2019-07-16 13:59] LABS: Basophils, Fluid 0 %; Eosinophils, Fluid 0 %; Lymphocytes, Fluid 11 %; Mono,Macrophage,Mesothelial 9 %; Neutrophils, Fluid 80 %; Pericardial Fluid Appearance CLEAR; Pericardial Fluid Color AMBER; RBC Pericardial Fluid (A) < 3000 /uL; WBC Pericardial Fluid (A) 145 /ul
[2019-07-16] MEDS ORDERED: CEFEPIME 2,000 MG in SYRINGE 7.5 ML IV SCH ×3 (14:00→21:00)
--- NOTE | 2019-07-16 14:05 | Cardiology Progress Note ---
Date of Service July 16, 2019 Assessment & Plan (1) Pericardial effusion: Patient appeared to do well yesterday evening but over the course of the night developed hypotension requiring pressor support. While his central venous pressure appears to be relatively low, it is unclear what contribution is pericardial effusion has to his hemodynamic compromise. I discussed options for drainage with the thoracic surgery service. However, it would seem reasonable to approach this percutaneously given the relative ease of drainage with that approach. I think given concerns about infection, the unknown etiology of his infection, the unknown status of his malignancy and hemodynamic compromise drainage is currently indicated. I discussed this with the patient and his and we will proceed today. Admission and Anticipated Discharge Date Admission Date: July 15, 2019 Subjective This morning patient did complain of some back pain but mostly pain at the site of his left rib injury. He did not report breathing difficulty. No other chest pains. Review of Systems Review of Systems: Per HPI. He was hungry. Physical Exam Physical Exam: The patient is alert and appears oriented. He answered questions appropriately. HEENT: Pupils are equal and reactive to light and accommodation. Extraocular movements are intact. The sclerae are anicteric. Neuro: Cranial nerves intact Neck: Patient's neck is supple. Jugular venous distention estimated at 1 centimeter Lungs: Clear to auscultation bilaterally. He has good air movement without use of accessory muscles. No rales wheezes or rhonchi. Cardiac: Heart demonstrates a regular rate and rhythm. Normal S1 and S2. No murmurs on examination. No rubs. Pulses: The patient has palpable radial pulses bilaterally that are equal in intensity Extremities: There was no evidence of hypoperfusion. There is no cyanosis or clubbing. There is minimal edema. Skin: I did not appreciate any rashes on examination today. Left arm is bandaged. Results & Data ([facility]) Vital Signs (Past 12 Hours) Vital Signs Pulse Resp BP Pulse Ox 07/16/19 06:00 99 H 17 88/62 L 95 07/16/19 05:06 100 H 19 79/52 L 92 07/16/19 05:00 101 H 19 93 07/16/19 04:51 102 H 21 75/46 L 94 07/16/19 04:38 103 H 20 68/45 L 94 07/16/19 04:36 103 H 19 77/47 L 92 07/16/19 04:30 106 H 4 L 92 07/16/19 04:06 105 H 18 89/60 L 95 07/16/19 04:00 107 H 22 79/52 L 94 07/16/19 03:51 106 H 21 84/57 L 93 07/16/19 03:36 108 H 21 91/62 L 94 07/16/19 03:30 108 H 21 94 07/16/19 03:21 109 H 21 92/62 L 94 07/16/19 03:13 108 H 19 93/62 L 95 07/16/19 03:06 104 H 17 80/55 L 94 07/16/19 03:00 102 H 20 93 07/16/19 02:30 102 H 18 94 Laboratory Results Abnormal Lab Results 07/15/19 07/15/19 07/15/19 12:55 19:53 20:45 WBC RBC Hgb Hct MCV MCH MCHC RDW Std Deviation RDW Coeff of Cecilia Plt Count MPV Immature Gran % (Auto) Neut % (Auto) Lymph % (Auto) Moca % (Auto) Eos % (Auto) Baso % (Auto) Immature Gran # (Auto) Neut # (Auto) Lymph # (Auto) Moca # (Auto) Eos # (Auto) Baso # (Auto) Dohle Bodies Macrocytosis PT INR Sodium Potassium Chloride Carbon Dioxide Anion Gap BUN Creatinine Est Cr Clr Drug Dosing Est GFR ( Amer) Est GFR (Non-Af Amer) BUN/Creatinine Ratio Glucose Lactate Calcium Ionized Calcium Phosphorus Magnesium Total Bilirubin Direct Bilirubin AST ALT Alkaline Phosphatase Lactate Dehydrogenase 282 H Troponin I Total Protein Albumin Procalcitonin Urine WBC (Auto) 5-10 H Urine RBC (Auto) >30 H U Hyaline Cast (Auto) 1-5 U Epithel Cells (Auto) 20-30 H Urine Bacteria (Auto) Negative Urine Crystals Not Reportable Uric Acid Crystals Present A Urine Mucus Present A Fluid Neutrophils % Fluid Lymphocytes % Fluid Eosinophils % Fluid Basophils % Fluid Meso/Macro/Moca % Pericard Color Pericard Appearance Pericard WBC Pericard RBC Pleural Fluid Source Pleural Color Pleural Appearance Pleural pH Pleural WBC Pleural RBC Pleural Total Protein Pleural Albumin Pleural LDH Pleural Glucose Pleural Amylase Pleural Triglycerides Nasal Screen MRSA (PCR) Negative Stl C. diff Tox B Gene Stl C.difficile Tox A&B Adenovirus (PCR) B. pertussis DNA (PCR) B.parapertussis DNA PCR C. pneumoniae DNA (PCR) Coronavirus OC43 (PCR) Coronavirus HKU1 (PCR) Coronavirus 229E (PCR) Coronavirus NL63 (PCR) Human Metapneumovir PCR Influenza Type A (PCR) Influenza Type B (PCR) M. pneumoniae (PCR) Parainfluenza 1 (PCR) Parainfluenza 2 (PCR) Parainfluenza 3 (PCR) Parainfluenza 4 (PCR) RSV (PCR) Entero/Rhino (PCR) 07/15/19 07/15/19 07/15/19 21:25 21:29 21:29 WBC RBC Hgb Hct MCV MCH MCHC RDW Std Deviation RDW Coeff of Cecilia Plt Count MPV Immature Gran % (Auto) Neut % (Auto) Lymph % (Auto) Moca % (Auto) Eos % (Auto) Baso % (Auto) Immature Gran # (Auto) Neut # (Auto) Lymph # (Auto) Moca # (Auto) Eos # (Auto) Baso # (Auto) Dohle Bodies Macrocytosis PT 12.9 H INR 1.2 H Sodium Potassium Chloride Carbon Dioxide Anion Gap BUN Creatinine Est Cr Clr Drug Dosing Est GFR ( Amer) Est GFR (Non-Af Amer) BUN/Creatinine Ratio Glucose Lactate 2.4 H* Calcium Ionized Calcium Phosphorus Magnesium Total Bilirubin Direct Bilirubin AST ALT Alkaline Phosphatase Lactate Dehydrogenase Troponin I Total Protein Albumin Procalcitonin Urine WBC (Auto) Urine RBC (Auto) U Hyaline Cast (Auto) U Epithel Cells (Auto) Urine Bacteria (Auto) Urine Crystals Uric Acid Crystals Urine Mucus Fluid Neutrophils % Fluid Lymphocytes % Fluid Eosinophils % Fluid Basophils % Fluid Meso/Macro/Moca % Pericard Color Pericard Appearance Pericard WBC Pericard RBC Pleural Fluid Source Pleural Color Pleural Appearance Pleural pH Pleural WBC Pleural RBC Pleural Total Protein Pleural Albumin Pleural LDH Pleural Glucose Pleural Amylase Pleural Triglycerides Nasal Screen MRSA (PCR) Stl C. diff Tox B Gene Stl C.difficile Tox A&B Adenovirus (PCR) Not Detected B. pertussis DNA (PCR) Not Detected B.parapertussis DNA PCR Not Detected C. pneumoniae DNA (PCR) Not Detected Coronavirus OC43 (PCR) Not Detected Coronavirus HKU1 (PCR) Not Detected Coronavirus 229E (PCR) Not Detected Coronavirus NL63 (PCR) Not Detected Human Metapneumovir PCR Not Detected Influenza Type A (PCR) Not Detected Influenza Type B (PCR) Not Detected M. pneumoniae (PCR) Not Detected Parainfluenza 1 (PCR) Not Detected Parainfluenza 2 (PCR) Not Detected Parainfluenza 3 (PCR) Not Detected Parainfluenza 4 (PCR) Not Detected RSV (PCR) Not Detected Entero/Rhino (PCR) Not Detected 07/15/19 07/16/19 07/16/19 21:29 00:25 00:34 WBC RBC Hgb Hct MCV MCH MCHC RDW Std Deviation RDW Coeff of Cecilia Plt Count MPV Immature Gran % (Auto) Neut % (Auto) Lymph % (Auto) Moca % (Auto) Eos % (Auto) Baso % (Auto) Immature Gran # (Auto) Neut # (Auto) Lymph # (Auto) Moca # (Auto) Eos # (Auto) Baso # (Auto) Dohle Bodies Macrocytosis PT INR Sodium Potassium Chloride Carbon Dioxide Anion Gap BUN Creatinine Est Cr Clr Drug Dosing Est GFR ( Amer) Est GFR (Non-Af Amer) BUN/Creatinine Ratio Glucose Lactate 2.6 H* Calcium Ionized Calcium 0.91 L Phosphorus Magnesium Total Bilirubin Direct Bilirubin AST ALT Alkaline Phosphatase Lactate Dehydrogenase Troponin I Total Protein Albumin Procalcitonin Urine WBC (Auto) Urine RBC (Auto) U Hyaline Cast (Auto) U Epithel Cells (Auto) Urine Bacteria (Auto) Urine Crystals Uric Acid Crystals Urine Mucus Fluid Neutrophils % Fluid Lymphocytes % Fluid Eosinophils % Fluid Basophils % Fluid Meso/Macro/Moca % Pericard Color Pericard Appearance Pericard WBC Pericard RBC Pleural Fluid Source Pleural Color Pleural Appearance Pleural pH 7.45 H Pleural WBC Pleural RBC Pleural Total Protein Pleural Albumin Pleural LDH Pleural Glucose Pleural Amylase Pleural Triglycerides Nasal Screen MRSA (PCR) Stl C. diff Tox B Gene Stl C.difficile Tox A&B Adenovirus (PCR) B. pertussis DNA (PCR) B.parapertussis DNA PCR C. pneumoniae DNA (PCR) Coronavirus OC43 (PCR) Coronavirus HKU1 (PCR) Coronavirus 229E (PCR) Coronavirus NL63 (PCR) Human Metapneumovir PCR Influenza Type A (PCR) Influenza Type B (PCR) M. pneumoniae (PCR) Parainfluenza 1 (PCR) Parainfluenza 2 (PCR) Parainfluenza 3 (PCR) Parainfluenza 4 (PCR) RSV (PCR) Entero/Rhino (PCR) 07/16/19 07/16/19 07/16/19 00:34 00:35 00:36 WBC RBC Hgb Hct MCV MCH MCHC RDW Std Deviation RDW Coeff of Cecilia Plt Count MPV Immature Gran % (Auto) Neut % (Auto) Lymph % (Auto) Moca % (Auto) Eos % (Auto) Baso % (Auto) Immature Gran # (Auto) Neut # (Auto) Lymph # (Auto) Moca # (Auto) Eos # (Auto) Baso # (Auto) Dohle Bodies Macrocytosis PT INR Sodium 145 Potassium 2.8 L Chloride 117 H Carbon Dioxide 19 L Anion Gap 9.0 BUN 21 H Creatinine 1.22 Est Cr Clr Drug Dosing 42.3 Est GFR ( Amer) 67.3 Est GFR (Non-Af Amer) 58.0 BUN/Creatinine Ratio 17.0 Glucose 104 H Lactate Calcium 6.1 L D Ionized Calcium Phosphorus Magnesium Total Bilirubin Direct Bilirubin AST ALT Alkaline Phosphatase Lactate Dehydrogenase 256 H Troponin I Total Protein Albumin Procalcitonin Urine WBC (Auto) Urine RBC (Auto) U Hyaline Cast (Auto) U Epithel Cells (Auto) Urine Bacteria (Auto) Urine Crystals Uric Acid Crystals Urine Mucus Fluid Neutrophils % 9 Fluid Lymphocytes % 28 Fluid Eosinophils % 0 Fluid Basophils % Fluid Meso/Macro/Moca % 63 Pericard Color Pericard Appearance Pericard WBC Pericard RBC Pleural Fluid Source LEFT LUNG Pleural Color RED Pleural Appearance CLOUDY Pleural pH Pleural WBC 475 Ple[place] 66230 Pleural Total Protein 2.8 Pleural Albumin 1.6 Pleural LDH 114 Pleural Glucose 127 Pleural Amylase 14 Pleural Triglycerides 27 Nasal Screen MRSA (PCR) Stl C. diff Tox B Gene Stl C.difficile Tox A&B Adenovirus (PCR) B. pertussis DNA (PCR) B.parapertussis DNA PCR C. pneumoniae DNA (PCR) Coronavirus OC43 (PCR) Coronavirus HKU1 (PCR) Coronavirus 229E (PCR) Coronavirus NL63 (PCR) Human Metapneumovir PCR Influenza Type A (PCR) Influenza Type B (PCR) M. pneumoniae (PCR) Parainfluenza 1 (PCR) Parainfluenza 2 (PCR) Parainfluenza 3 (PCR) Parainfluenza 4 (PCR) RSV (PCR) Entero/Rhino (PCR) 07/16/19 07/16/19 07/16/19 04:00 04:14 04:21 WBC 33.79 H* RBC 2.89 L Hgb 10.6 L Hct 31.8 L MCV 110.0 H MCH 36.7 H MCHC 33.3 RDW Std Deviation 61.5 H RDW Coeff of Cecilia 15.4 H Plt Count 195 MPV 9.6 Immature Gran % (Auto) 0.7 Neut % (Auto) 89.1 Lymph % (Auto) 2.5 Moca % (Auto) 7.5 Eos % (Auto) 0.0 Baso % (Auto) 0.2 Immature Gran # (Auto) 0.24 H Neut # (Auto) 30.10 H Lymph # (Auto) 0.85 L Moca # (Auto) 2.54 H Eos # (Auto) 0.00 Baso # (Auto) 0.06 Dohle Bodies 1+ Macrocytosis Present PT INR Sodium 142 Potassium 3.4 L D Chloride 114 H Carbon Dioxide 19 L Anion Gap 9.0 BUN 24 H Creatinine 1.33 Est Cr Clr Drug Dosing 38.8 Est GFR ( Amer) 60.6 Est GFR (Non-Af Amer) 52.3 BUN/Creatinine Ratio 17.8 Glucose 138 H Lactate 1.8 Calcium 6.9 L Ionized Calcium Phosphorus 3.1 Magnesium 1.6 L Total Bilirubin 3.1 H Direct Bilirubin 0.7 H AST 40 H ALT 18 Alkaline Phosphatase 78 Lactate Dehydrogenase Troponin I 0.408 H* Total Protein 5.3 L D Albumin 1.9 L Procalcitonin Urine WBC (Auto) Urine RBC (Auto) U Hyaline Cast (Auto) U Epithel Cells (Auto) Urine Bacteria (Auto) Urine Crystals Uric Acid Crystals Urine Mucus Fluid Neutrophils % Fluid Lymphocytes % Fluid Eosinophils % Fluid Basophils % Fluid Meso/Macro/Moca % Pericard Color Pericard Appearance Pericard WBC Pericard RBC Pleural Fluid Source Pleural Color Pleural Appearance Pleural pH Pleural WBC Pleural RBC Pleural Total Protein Pleural Albumin Pleural LDH Pleural Glucose Pleural Amylase Pleural Triglycerides Nasal Screen MRSA (PCR) Stl C. diff Tox B Gene Stl C.difficile Tox A&B Adenovirus (PCR) B. pertussis DNA (PCR) B.parapertussis DNA PCR C. pneumoniae DNA (PCR) Coronavirus OC43 (PCR) Coronavirus HKU1 (PCR) Coronavirus 229E (PCR) Coronavirus NL63 (PCR) Human Metapneumovir PCR Influenza Type A (PCR) Influenza Type B (PCR) M. pneumoniae (PCR) Parainfluenza 1 (PCR) Parainfluenza 2 (PCR) Parainfluenza 3 (PCR) Parainfluenza 4 (PCR) RSV (PCR) Entero/Rhino (PCR) 07/16/19 07/16/19 07/16/19 04:44 12:44 Unknown WBC RBC Hgb Hct MCV MCH MCHC RDW Std Deviation RDW Coeff of Cecilia Plt Count MPV Immature Gran % (Auto) Neut % (Auto) Lymph % (Auto) Moca % (Auto) Eos % (Auto) Baso % (Auto) Immature Gran # (Auto) Neut # (Auto) Lymph # (Auto) Moca # (Auto) Eos # (Auto) Baso # (Auto) Dohle Bodies Macrocytosis PT INR Sodium Potassium Chloride Carbon Dioxide Anion Gap BUN Creatinine Est Cr Clr Drug Dosing Est GFR ( Amer) Est GFR (Non-Af Amer) BUN/Creatinine Ratio Glucose Lactate Calcium Ionized Calcium Phosphorus Magnesium Total Bilirubin Direct Bilirubin AST ALT Alkaline Phosphatase Lactate Dehydrogenase Troponin I Total Protein Albumin Procalcitonin 8.16 H Urine WBC (Auto) Urine RBC (Auto) U Hyaline Cast (Auto) U Epithel Cells (Auto) Urine Bacteria (Auto) Urine Crystals Uric Acid Crystals Urine Mucus Fluid Neutrophils % 80 Fluid Lymphocytes % 11 Fluid Eosinophils % 0 Fluid Basophils % 0 Fluid Meso/Macro/Moca % 9 Pericard Color MAURISIO Pericard Appearance CLEAR Pericard WBC 145 Pericard RBC < 3000 Pleural Fluid Source Pleural Color Pleural Appearance Pleural pH Pleural WBC Pleural RBC Pleural Total Protein Pleural Albumin Pleural LDH Pleural Glucose Pleural Amylase Pleural Triglycerides Nasal Screen MRSA (PCR) Stl C. diff Tox B Gene Positive Cdiff Gene H Stl C.difficile Tox A&B Positive Cdiff Toxin A* Adenovirus (PCR) B. pertussis DNA (PCR) B.parapertussis DNA PCR C. pneumoniae DNA (PCR) Coronavirus OC43 (PCR) Coronavirus HKU1 (PCR) Coronavirus 229E (PCR) Coronavirus NL63 (PCR) Human Metapneumovir PCR Influenza Type A (PCR) Influenza Type B (PCR) M. pneumoniae (PCR) Parainfluenza 1 (PCR) Parainfluenza 2 (PCR) Parainfluenza 3 (PCR) Parainfluenza 4 (PCR) RSV (PCR) Entero/Rhino (PCR) Diagnostic Findings Chest x-ray obtained this morning demonstrated resolution of the left pleural effusion status post thoracentesis. PG Care Time/CCT Total # of Minutes Spent Total Time Spent with Patient: Total time spent is greater than 50% in coordination of care (as documented) at patient's floor/unit and/or counseling patient: Coding Level of Care Code 30625 Subseq Hosp Care Lvl 3 Diagnoses Pericardial effusion I31.3
[2019-07-16 14:29] LABS: Reticulocyte % 3.3 % (0.5-2.0); Reticulocytes # 0.1 10^6/uL (0.02-0.10)
--- NOTE | 2019-07-16 14:35 | XCELERA ---
[id number] [id number]
--- NOTE | 2019-07-16 16:06 | Billing Data ---
Date of Service July 16, 2019 Coding Level of Care Code 44756 Subseq Hosp Care Lvl 3
[2019-07-16] MEDS ORDERED: VANCOMYCIN CONSULT ACTIVE PRN (20:12)
[2019-07-16 20:24] LABS: Hematocrit (blood only) 37.2 % (42-52); Hemoglobin 12.9 g/dL (14.0-18.0)
[2019-07-16] MEDS ORDERED: VANCOMYCIN HCL 1,250 MG in SODIUM CHLORIDE 0.9% 250 ML IV SCH (21:00)
[2019-07-16] MEDS: VASOPRESSIN 20 UNITS in 0.9 % SODIUM CHLORIDE 100 ML IV SCH (22:58)
[2019-07-17] MEDS: RASPBERRY SYRUP 5 ML UDP PO SCH ×4 (00:44→16:43)
[2019-07-17] MEDS: VANCOMYCIN HCL 500 MG/10 ML SOLN PO SCH ×4 (00:44→16:43)
[2019-07-17 04:48] LABS: HCO3 ABG 15 mmol/L (19-24); Oxygen Saturation ABG 94.7 % (90-95); PCO2 ABG 20 mmHg (35-46); PO2 ABG 66 mmHg (80-95)
[2019-07-17 04:49] LABS: Allen Test Pos (Pos)
[2019-07-17 04:50] LABS: pH ABG 7.51 (7.35-7.45)
[2019-07-17 05:25] LABS: Albumin Level 1.6 gm/dl (3.4-5.0); BUN Creatinine Ratio 19.9 (10-20); Bilirubin Direct 0.5 mg/dl (0-0.2); Bilirubin,Total 2.2 mg/dl (0.2-1); Calcium 7.3 mg/dl (8.5-10.1); Creatinine Clr Calc Pharmacy 26.3 ml/min; Est GFR (African American) 38.4; Est GFR (Non-African American) 33.1; Magnesium 2.3 mg/dl (1.8-2.4); Phosphorus 5.2 mg/dl (2.5-4.9); Potassium 5.1 mmol/L (3.5-5.1); Total Protein 5.8 gm/dl (6.4-8.2); Troponin I 0.13 ng/ml (0-0.045)
[2019-07-17 05:41] LABS: Hematocrit (blood only) 42.6 % (42-52); Hemoglobin 14.6 g/dL (14.0-18.0); Mean Corpuscular Hemoglobin 36.7 pg (25-34); Mean Corpuscular Hgb Conc 34.3 g/dL (32-36); Mean Platelet Volume 10.5 fL (7.4-10.4); Nucleated RBC # (auto) 0.17 K/uL (0-0); Nucleated RBC % (auto) 0.3 %; Platelet Count 267 K/uL (130-400); RDW Coefficient of Variation 15.6 % (11.5-14.5); RDW Standard Deviation 61.6 fL (36.4-46.3); Red Blood Count 3.98 M/uL (4.7-6.1); White Blood Count 64.42 K/uL (4.8-10.8)
[2019-07-17 05:42] LABS: Basophils % (auto) 0.2 %; Immature Granulocytes # (auto) 3.75 K/uL (0.00-0.02); Immature Granulocytes % (auto) 5.8 %; Lymphocytes % (auto) 1.2 %; Monocytes # (auto) 3.89 K/uL (0.11-0.59); Neutrophils # (auto) 55.88 K/uL (1.4-6.5); Neutrophils % (auto) 86.8 %
[2019-07-17] MEDS: VASOPRESSIN 20 UNITS in 0.9 % SODIUM CHLORIDE 100 ML IV SCH ×2 (06:40→13:25)
[2019-07-17] MEDS: NOREPINEPHRINE BIT INJ 8 MG in DEXTROSE 5% 500 ML IV SCH ×2 (06:41→19:58)
--- NOTE | 2019-07-17 07:15 | XRay Report ---
XR chest 1V portable HISTORY: Status post pericardiocentesis. COMPARISON: Chest 07/16/2019. FINDINGS: Left jugular central venous catheter terminates proximal SVC. Nasogastric tube terminates i n the stomach. Left basilar densities/effusion persists. No pneumothorax. There are low lung volumes. The right lung is clear. IMPRESSION: 1. Satisfactory support line placement. 2. Left basilar densities/effusion persists. ACT 112: Negative or not required by law. Electronically signed by: Chandana Redding M.D. 07/17/2019 7:14 AM
--- NOTE | 2019-07-17 07:59 | Critical Care Progress Note ---
Date of Service July 17, 2019 Assessment & Plan (1) C. difficile colitis: Reason Critically Ill: 73-year-old male with severe sepsis with septic shock in the setting of C. difficile colitis requiring vasoactive medication Neuro: - CAM ICU: POSITIVE - Altered mental status: - CT head unremarkable. - Likely metabolic encephalopathy in the setting of severe sepsis. - Unable to obtain lumbar puncture Cardiac/Vascular: - Pericardial effusion: - Pericardial placed yesterday, 150mls out overnight - Elevated troponin, this AM 0.130 - Likely secondary to tachycardia - Improved with low-dose beta-nathan Respiratory: - Pleural effusions: Thoracentesis of left pericardial effusion - Not consistent with empyema at this time - Patient did not exhibit groundglass opacities, no hypoxia, no cough, reviewed pulmonary consultation - patient does not exhibit high risk characteristics for COVID-19 GI/Nutrition: - Antibiotic associated C. difficile colitis - continue oral vancomycin - Hypoalbuminemia: started on 50mg of 25% Albumin - NPO - KUB pending - Prophylaxis: Famotidine Renal/Lytes: - Lactic acidosis: - Cr 1.94 this AM - Monitor creatinine - Discontinuing additional IV fluid, will adjust based off the patient's clinical response : - Clark in place - continue to monitor strict I&Os. ENDO: - No history of diabetes or thyroid disease. - BSGs per unit protocol. - started on Novolog given hyperglycemic event overnight; Correction factor 30, carb ratio 12 HEME: - significant leukocytosis: - question contribution of AML versus severe septic state. - Stable H&H at this time. - AML: currently treated at [facility]. Multiple rounds of chemotherapy previously. - History of bone marrow transplant. - Question worsening [id number]. - Oncology consulted ID: - Severe sepsis with septic shock: C. difficile associated colitis - increase in WBC overnight to 64.4 this AM - repeat Lactate 3.1 this AM - continue Cefepime, and PO vancomycin - Continue home prophylaxis: Resuming home acyclovir - ID consult - patient does not exhibit high risk characteristics for COVID-19 Lines/IV Access: - PIVs x2 - L Internal Jugular - R radial A-line - Clark DVT Prophylaxis: - SCDs (2) AMS (altered mental status): (3) AML (acute myeloblastic leukemia): (4) History of recent chemotherapy: Admission and Anticipated Discharge Date Admission Date: July 15, 2019 Supervising Physician Co-Signing Physician Notes Patient seen and examined. Agree with assessment and plan as noted by the family practice resident. EMR was extensively reviewed and images independently reviewed. The patient has clinically deteriorated overnight. He is now requiring increasing oxygen. He is now on 2 vasopressors. He has had kidney function. He remains encephalopathic. His white count is markedly elevated up to 69,000. I discussed the case with his transplant provider at [place], Dr. Sifuentes. He stated the current findings could be consistent with [id number] disease and recommended Solu-Medrol 2 mg/kg. This was initiated. Also discussed with hematology oncology. He has 88% neutrophils with only 5% immature forms. This appears less likely an acute leukemic transformation and more likely a severe leukemoid reaction. Continue oral vancomycin. Given the severity of his infection, will add IV Flagyl. His lactate continues to climb which is a poor prognostic indicator. He continues to have output from his pericardial drain but no tamponade physiology. CVP is adequate. We will provide albumin and calcium support today. Fluid bolus on pressure bag and reassess response to fluids. Patient's prognosis is severely guarded currently. I am not sure that additional escalation of care will alter his overall outcome. If he progresses to renal dysfunction requiring dialysis, it is unlikely that conventional hemodialysis can be offered given his significant pressor requirements. Continuous renal replacement is not available at this institution. After preliminary discussions with [place], it appears that given the coronavirus issues, transfer to a higher level of care is likely not going to be feasible. Family is being updated. Subjective Patient required to be started on two pressors overngith, now on Levophed, and Vasopressin this AM; had 150mls out of his pericardial drain overnight. Review of Systems Review of Systems: Unobtainable due to reduced consciousness Physical Exam Constitutional: + ill appearing, + thin and + altered mental status Eyes: PERRL, conjunctivae normal, anicteric sclerae ENMT: external ear and nose normal, oropharynx normal Neck: normal visual inspection Respiratory: + respiratory distress and + labored breathing; no retractions Auscultation: + crackles (L>R) and + rales (L>R); no wheezes Cardiovascular: Rate/Rhythm: regular rate and regular rhythm Heart Sounds: normal S1 and normal S2; no gallop, no murmur and no cardiac rub Vessels: no JVD Extremities: no pedal edema Gastrointestinal (Abdomen): Inspection/Auscultation: abdomen not distended Percussion/Palpation: + abdomen tender and abdomen soft; no guarding and no hepatosplenomegaly Musculoskeletal: moves all extremities Skin: no rashes, warm and dry Psychiatric: Orientation: alert and oriented to person; + not oriented to place and + not oriented to time Lymphatic: no cervical or axillary lymphadenopathy Results & Data ([facility]) Vital Signs (Past 12 Hours) Vital Signs Pulse Resp BP Pulse Ox 07/17/19 06:00 120 H 30 H 124/63 91 07/17/19 05:00 108 H 28 H 93 07/17/19 04:00 124 H 28 H 124/93 94 07/17/19 03:00 127 H 27 H 128/93 93 07/17/19 02:00 122 H 32 H 146/91 H 91 07/17/19 01:00 123 H 27 H 134/73 94 07/17/19 00:00 121 H 22 132/79 92 07/16/19 23:00 123 H 31 H 102/73 91 07/16/19 22:00 122 H 28 H 91/58 L 95 07/16/19 21:00 122 H 27 H 122/62 93 07/16/19 20:00 123 H 23 93/65 L 92 Laboratory Results 07/17/19 07/17/19 07/17/19 Range/Units 04:30 04:30 04:30 WBC (4.8-10.8) K/uL RBC (4.7-6.1) M/uL Hgb (14.0-18.0) g/dL Hct (42-52) % MCV (80-100) fL MCH (25-34) pg MCHC (32-36) g/dL RDW Std Deviation (36.4-46.3) fL RDW Coeff of Cecilia (11.5-14.5) % Plt Count (130-400) K/uL MPV (7.4-10.4) fL Immature Gran % (Auto) % Neut % (Auto) % Lymph % (Auto) % Garfield % (Auto) % Eos % (Auto) % Baso % (Auto) % Reticulocyte % (Auto) (0.5-2.0) % Immature Gran # (Auto) (0.00-0.02) K/uL Neut # (Auto) (1.4-6.5) K/uL Lymph # (Auto) (1.2-3.4) K/uL Garfield # (Auto) (0.11-0.59) K/uL Eos # (Auto) (0-0.5) K/uL Baso # (Auto) (0-0.2) K/uL Reticulocyte # (0.02-0.10) 10^6/uL Absolute Nucleated RBC (0-0) K/uL Nucleated RBC % (auto) % Peripher Smr Path Cons Haptoglobin ABG pH 7.51 H* (7.35-7.45) ABG pCO2 20 L (35-46) mmHg ABG pO2 66 L (80-95) mmHg ABG HCO3 15 L (19-24) mmol/L ABG O2 Saturation 94.7 (90-95) % ABG Base Excess -5.0 (-9-1.8) mEq/L Khoi Test Pos (Pos) Oxygen Given 2L Sodium 137 (136-145) mmol/L Potassium 5.1 D (3.5-5.1) mmol/L Chloride 109 H (98-107) mmol/L Carbon Dioxide 14 L (21-32) mmol/L Anion Gap 14.0 H (3-11) BUN 39 H D (7-18) mg/dl Creatinine 1.94 H D (0.6-1.4) mg/dl Est Cr Clr Drug Dosing 26.3 ml/min Est GFR ( Amer) 38.4 Est GFR (Non-Af Amer) 33.1 BUN/Creatinine Ratio 19.9 (10-20) Glucose 222 H (70-99) mg/dl Calcium 7.3 L (8.5-10.1) mg/dl Phosphorus 5.2 H D (2.5-4.9) mg/dl Magnesium 2.3 (1.8-2.4) mg/dl Total Bilirubin 2.2 H (0.2-1) mg/dl Direct Bilirubin 0.5 H (0-0.2) mg/dl AST 48 H (15-37) U/L ALT 30 (12-78) U/L Alkaline Phosphatase 87 (45-117) U/L Troponin I 0.130 H* (0-0.045) ng/ml Total Protein 5.8 L (6.4-8.2) gm/dl Albumin 1.6 L (3.4-5.0) gm/dl Procalcitonin 28.35 H (0-0.5) ng/ml Fluid Neutrophils % % Fluid Lymphocytes % % Fluid Eosinophils % % Fluid Basophils % % Fluid Meso/Macro/Garfield % % Pericard Color Pericard Appearance Pericard WBC /ul Pericard RBC /uL Pericard Total Protein Pericardial Albumin Pericardial LDH Pericardial Glucose CMV IgM Ab CMV DNA Qual PCR Ref Lab Test Source Blood Type Blood Type Recheck Direct Antiglob Test (Negative) NINA (IgG-AHG) (Negative) NINA, Polyspecific (Negative) NINA C3b, C3d 5 Min (Negative) 07/17/19 07/16/19 07/16/19 Range/Units 04:30 20:13 13:54 WBC 64.42 H* (4.8-10.8) K/uL RBC 3.98 L (4.7-6.1) M/uL Hgb 14.6 12.9 L (14.0-18.0) g/dL Hct 42.6 37.2 L (42-52) % MCV 107.0 H (80-100) fL MCH 36.7 H (25-34) pg MCHC 34.3 (32-36) g/dL RDW Std Deviation 61.6 H (36.4-46.3) fL RDW Coeff of Cecilia 15.6 H (11.5-14.5) % Plt Count 267 (130-400) K/uL MPV 10.5 H (7.4-10.4) fL Immature Gran % (Auto) 5.8 % Neut % (Auto) 86.8 % Lymph % (Auto) 1.2 % Garfield % (Auto) 6.0 % Eos % (Auto) 0.0 % Baso % (Auto) 0.2 % Reticulocyte % (Auto) (0.5-2.0) % Immature Gran # (Auto) 3.75 H (0.00-0.02) K/uL Neut # (Auto) 55.88 H (1.4-6.5) K/uL Lymph # (Auto) 0.80 L (1.2-3.4) K/uL Garfield # (Auto) 3.89 H (0.11-0.59) K/uL Eos # (Auto) 0.00 (0-0.5) K/uL Baso # (Auto) 0.10 (0-0.2) K/uL Reticulocyte # (0.02-0.10) 10^6/uL Absolute Nucleated RBC 0.17 H (0-0) K/uL Nucleated RBC % (auto) 0.3 % Peripher Smr Path Cons Haptoglobin ABG pH (7.35-7.45) ABG pCO2 (35-46) mmHg ABG pO2 (80-95) mmHg ABG HCO3 (19-24) mmol/L ABG O2 Saturation (90-95) % ABG Base Excess (-9-1.8) mEq/L Khoi Test (Pos) Oxygen Given Sodium (136-145) mmol/L Potassium (3.5-5.1) mmol/L Chloride (98-107) mmol/L Carbon Dioxide (21-32) mmol/L Anion Gap (3-11) BUN (7-18) mg/dl Creatinine (0.6-1.4) mg/dl Est Cr Clr Drug Dosing ml/min Est GFR ( Amer) Est GFR (Non-Af Amer) BUN/Creatinine Ratio (10-20) Glucose (70-99) mg/dl Calcium (8.5-10.1) mg/dl Phosphorus (2.5-4.9) mg/dl Magnesium (1.8-2.4) mg/dl Total Bilirubin (0.2-1) mg/dl Direct Bilirubin (0-0.2) mg/dl AST (15-37) U/L ALT (12-78) U/L Alkaline Phosphatase (45-117) U/L Troponin I (0-0.045) ng/ml Total Protein (6.4-8.2) gm/dl Albumin (3.4-5.0) gm/dl Procalcitonin (0-0.5) ng/ml Fluid Neutrophils % % Fluid Lymphocytes % % Fluid Eosinophils % % Fluid Basophils % % Fluid Meso/Macro/Garfield % % Pericard Color Pericard Appearance Pericard WBC /ul Pericard RBC /uL Pericard Total Protein Pericardial Albumin Pericardial LDH Pericardial Glucose CMV IgM Ab CMV DNA Qual PCR Ref Lab Test Source Blood Type Blood Type Recheck Pending Direct Antiglob Test (Negative) NINA (IgG-AHG) (Negative) NINA, Polyspecific (Negative) NINA C3b, C3d 5 Min (Negative) 07/16/19 07/16/19 07/16/19 Range/Units 13:54 13:53 13:53 WBC (4.8-10.8) K/uL RBC (4.7-6.1) M/uL Hgb (14.0-18.0) g/dL Hct (42-52) % MCV (80-100) fL MCH (25-34) pg MCHC (32-36) g/dL RDW Std Deviation (36.4-46.3) fL RDW Coeff of Cecilia (11.5-14.5) % Plt Count (130-400) K/uL MPV (7.4-10.4) fL Immature Gran % (Auto) % Neut % (Auto) % Lymph % (Auto) % Garfield % (Auto) % Eos % (Auto) % Baso % (Auto) % Reticulocyte % (Auto) (0.5-2.0) % Immature Gran # (Auto) (0.00-0.02) K/uL Neut # (Auto) (1.4-6.5) K/uL Lymph # (Auto) (1.2-3.4) K/uL Garfield # (Auto) (0.11-0.59) K/uL Eos # (Auto) (0-0.5) K/uL Baso # (Auto) (0-0.2) K/uL Reticulocyte # (0.02-0.10) 10^6/uL Absolute Nucleated RBC (0-0) K/uL Nucleated RBC % (auto) % Peripher Smr Path Cons Haptoglobin Pending ABG pH (7.35-7.45) ABG pCO2 (35-46) mmHg ABG pO2 (80-95) mmHg ABG HCO3 (19-24) mmol/L ABG O2 Saturation (90-95) % ABG Base Excess (-9-1.8) mEq/L Khoi Test (Pos) Oxygen Given Sodium (136-145) mmol/L Potassium (3.5-5.1) mmol/L Chloride (98-107) mmol/L Carbon Dioxide (21-32) mmol/L Anion Gap (3-11) BUN (7-18) mg/dl Creatinine (0.6-1.4) mg/dl Est Cr Clr Drug Dosing ml/min Est GFR ( Amer) Est GFR (Non-Af Amer) BUN/Creatinine Ratio (10-20) Glucose (70-99) mg/dl Calcium (8.5-10.1) mg/dl Phosphorus (2.5-4.9) mg/dl Magnesium (1.8-2.4) mg/dl Total Bilirubin (0.2-1) mg/dl Direct Bilirubin (0-0.2) mg/dl AST (15-37) U/L ALT (12-78) U/L Alkaline Phosphatase (45-117) U/L Troponin I (0-0.045) ng/ml Total Protein (6.4-8.2) gm/dl Albumin (3.4-5.0) gm/dl Procalcitonin (0-0.5) ng/ml Fluid Neutrophils % % Fluid Lymphocytes % % Fluid Eosinophils % % Fluid Basophils % % Fluid Meso/Macro/Garfield % % Pericard Color Pericard Appearance Pericard WBC /ul Pericard RBC /uL Pericard Total Protein Pericardial Albumin Pericardial LDH Pericardial Glucose CMV IgM Ab Pending CMV DNA Qual PCR Pending Ref Lab Test Source Pending Blood Type Blood Type Recheck Direct Antiglob Test Negative (Negative) NINA (IgG-AHG) Neg (Negative) NINA, Polyspecific Neg (Negative) NINA C3b, C3d 5 Min Neg (Negative) 07/16/19 07/16/19 07/16/19 Range/Units 13:53 12:44 12:44 WBC (4.8-10.8) K/uL RBC (4.7-6.1) M/uL Hgb (14.0-18.0) g/dL Hct (42-52) % MCV (80-100) fL MCH (25-34) pg MCHC (32-36) g/dL RDW Std Deviation (36.4-46.3) fL RDW Coeff of Cecilia (11.5-14.5) % Plt Count (130-400) K/uL MPV (7.4-10.4) fL Immature Gran % (Auto) % Neut % (Auto) % Lymph % (Auto) % Garfield % (Auto) % Eos % (Auto) % Baso % (Auto) % Reticulocyte % (Auto) 3.3 H (0.5-2.0) % Immature Gran # (Auto) (0.00-0.02) K/uL Neut # (Auto) (1.4-6.5) K/uL Lymph # (Auto) (1.2-3.4) K/uL Garfield # (Auto) (0.11-0.59) K/uL Eos # (Auto) (0-0.5) K/uL Baso # (Auto) (0-0.2) K/uL Reticulocyte # 0.10 (0.02-0.10) 10^6/uL Absolute Nucleated RBC (0-0) K/uL Nucleated RBC % (auto) % Peripher Smr Path Cons Pending Haptoglobin ABG pH (7.35-7.45) ABG pCO2 (35-46) mmHg ABG pO2 (80-95) mmHg ABG HCO3 (19-24) mmol/L ABG O2 Saturation (90-95) % ABG Base Excess (-9-1.8) mEq/L Khoi Test (Pos) Oxygen Given Sodium (136-145) mmol/L Potassium (3.5-5.1) mmol/L Chloride (98-107) mmol/L Carbon Dioxide (21-32) mmol/L Anion Gap (3-11) BUN (7-18) mg/dl Creatinine (0.6-1.4) mg/dl Est Cr Clr Drug Dosing ml/min Est GFR ( Amer) Est GFR (Non-Af Amer) BUN/Creatinine Ratio (10-20) Glucose (70-99) mg/dl Calcium (8.5-10.1) mg/dl Phosphorus (2.5-4.9) mg/dl Magnesium (1.8-2.4) mg/dl Total Bilirubin (0.2-1) mg/dl Direct Bilirubin (0-0.2) mg/dl AST (15-37) U/L ALT (12-78) U/L Alkaline Phosphatase (45-117) U/L Troponin I (0-0.045) ng/ml Total Protein (6.4-8.2) gm/dl Albumin (3.4-5.0) gm/dl Procalcitonin (0-0.5) ng/ml Fluid Neutrophils % 80 % Fluid Lymphocytes % 11 % Fluid Eosinophils % 0 % Fluid Basophils % 0 % Fluid Meso/Macro/Garfield % 9 % Pericard Color MAURISIO Pericard Appearance CLEAR Pericard WBC 145 /ul Pericard RBC < 3000 /uL Pericard Total Protein Pending Pericardial Albumin Pending Pericardial LDH Pending Pericardial Glucose Pending CMV IgM Ab CMV DNA Qual PCR Ref Lab Test Source Blood Type Blood Type Recheck Direct Antiglob Test (Negative) NINA (IgG-AHG) (Negative) NINA, Polyspecific (Negative) NINA C3b, C3d 5 Min (Negative) 07/16/19 Range/Units 00:36 WBC (4.8-10.8) K/uL RBC (4.7-6.1) M/uL Hgb (14.0-18.0) g/dL Hct (42-52) % MCV (80-100) fL MCH (25-34) pg MCHC (32-36) g/dL RDW Std Deviation (36.4-46.3) fL RDW Coeff of Cecilia (11.5-14.5) % Plt Count (130-400) K/uL MPV (7.4-10.4) fL Immature Gran % (Auto) % Neut % (Auto) % Lymph % (Auto) % Garfield % (Auto) % Eos % (Auto) % Baso % (Auto) % Reticulocyte % (Auto) (0.5-2.0) % Immature Gran # (Auto) (0.00-0.02) K/uL Neut # (Auto) (1.4-6.5) K/uL Lymph # (Auto) (1.2-3.4) K/uL Garfield # (Auto) (0.11-0.59) K/uL Eos # (Auto) (0-0.5) K/uL Baso # (Auto) (0-0.2) K/uL Reticulocyte # (0.02-0.10) 10^6/uL Absolute Nucleated RBC (0-0) K/uL Nucleated RBC % (auto) % Peripher Smr Path Cons Haptoglobin ABG pH (7.35-7.45) ABG pCO2 (35-46) mmHg ABG pO2 (80-95) mmHg ABG HCO3 (19-24) mmol/L ABG O2 Saturation (90-95) % ABG Base Excess (-9-1.8) mEq/L Khoi Test (Pos) Oxygen Given Sodium (136-145) mmol/L Potassium (3.5-5.1) mmol/L Chloride (98-107) mmol/L Carbon Dioxide (21-32) mmol/L Anion Gap (3-11) BUN (7-18) mg/dl Creatinine (0.6-1.4) mg/dl Est Cr Clr Drug Dosing ml/min Est GFR ( Amer) Est GFR (Non-Af Amer) BUN/Creatinine Ratio (10-20) Glucose (70-99) mg/dl Calcium (8.5-10.1) mg/dl Phosphorus (2.5-4.9) mg/dl Magnesium (1.8-2.4) mg/dl Total Bilirubin (0.2-1) mg/dl Direct Bilirubin (0-0.2) mg/dl AST (15-37) U/L ALT (12-78) U/L Alkaline Phosphatase (45-117) U/L Troponin I (0-0.045) ng/ml Total Protein (6.4-8.2) gm/dl Albumin (3.4-5.0) gm/dl Procalcitonin (0-0.5) ng/ml Fluid Neutrophils % % Fluid Lymphocytes % % Fluid Eosinophils % % Fluid Basophils % % Fluid Meso/Macro/Garfield % % Pericard Color Pericard Appearance Pericard WBC /ul Pericard RBC /uL Pericard Total Protein Pericardial Albumin Pericardial LDH Pericardial Glucose CMV IgM Ab CMV DNA Qual PCR Ref Lab Test Source Blood Type Pending Blood Type Recheck Direct Antiglob Test (Negative) NINA (IgG-AHG) (Negative) NINA, Polyspecific (Negative) NINA C3b, C3d 5 Min (Negative) Medications Administered Current Inpatient Medications Acyclovir (Zovirax) 200 mg PO BID LUNA; Protocol Stop: 08/14/19 20:59 Last Admin: 07/16/19 21:05 Dose: 200 mg Documented by: Atovaquone (Mepron) 1,500 mg PO DAILY LUNA Stop: 08/15/19 08:59 Last Admin: 07/16/19 08:12 Dose: 1,500 mg Documented by: Fluconazole (Diflucan) 200 mg PO QAM LUNA; Protocol Stop: 08/15/19 08:59 Last Admin: 07/16/19 08:11 Dose: 200 mg Documented by: Heparin Sodium (Beef Lung) (Heparin Sod 10 Unit/Ml Flush) 5 ml FLUSH PRN PRN PRN Reason: Flush Stop: 08/15/19 06:14 Famotidine 20 mg/ Syringe 5 mls @ 2.5 mls/min IV Q12H LUNA Stop: 08/14/19 20:59 Last Admin: 07/16/19 21:02 Dose: 2.5 mls/min Documented by: Acetaminophen (Ofirmev) 1,000 mg in 100 mls @ 400 mls/hr IV Q8H PRN PRN Reason: Fever Stop: 07/18/19 20:55 Last Infusion: 07/15/19 21:45 Dose: Infused Documented by: Norepinephrine Bitartrate 8 mg (/ Dextrose) 508 mls @ 52.567 mls/hr IV .Q9H40M LUNA; Protocol Stop: 08/15/19 04:44 Last Titration: 07/17/19 06:46 Dose: 0.21 mcg/kg/min, 52.6 mls/hr Documented by: Cefepime HCl 2,000 mg/ Syringe 20 mls @ 5.5 mls/min IV Q12H LUNA; Protocol Stop: 07/26/19 20:59 Last Admin: 07/16/19 21:00 Dose: 5.5 mls/min Documented by: Vancomycin HCl 1,250 mg/ (Sodium Chloride) 275 mls @ 125 mls/hr IV Q24H LUNA; Protocol Stop: 07/23/19 20:59 Last Infusion: 07/16/19 23:12 Dose: Infused Documented by: Vasopressin 20 units/ Sodium (Chloride) 101 mls @ 12.12 mls/hr IV .Q8H20M LUNA Stop: 08/15/19 22:44 Last Infusion: 07/17/19 06:46 Dose: 0.04 unit/min, 12.1 mls/hr Documented by: Ioversol (Optiray 320 125ml) 120 ml IV ONCE PRN PRN Reason: Interaction Checking Stop: 07/19/19 12:20 Last Admin: 07/15/19 12:21 Dose: 120 ml Documented by: Magnesium Oxide (Mag-Ox) 400 mg PO QAM [facility] Stop: 08/15/19 08:59 Last Admin: 07/16/19 08:11 Dose: 400 mg Documented by: Metoprolol Tartrate (Lopressor) 12.5 mg PO BID LUNA Stop: 08/14/19 20:59 Last Admin: 07/16/19 21:04 Dose: 12.5 mg Documented by: Miscellaneous (Order Awaiting Action) 1 ea N/A QS LUNA Stop: 08/15/19 00:00 Last Admin: 07/17/19 00:01 Dose: Not Given Documented by: Miscellaneous (Icu Protocol For Hyperglycemia) 1 ea N/A PRN PRN; Protocol PRN Reason: Hyperglycemia Protocol Stop: 07/17/19 20:33 Miscellaneous Information (Consult) 1 ea N/A UD PRN PRN Reason: Consult Stop: 08/15/19 20:11 Multivitamins/Minerals (Caltrate Plus) 1 tab PO BID LUNA Stop: 08/14/19 20:59 Last Admin: 07/16/19 21:07 Dose: 1 tab Documented by: Raspberry (Raspberry) 5 ml PO Q6 LUNA Stop: 07/30/19 05:59 Last Admin: 07/17/19 06:33 Dose: 5 ml Documented by: Tamsulosin HCl (Flomax) 0.4 mg PO QAM LUAN Stop: 08/15/19 08:59 Last Admin: 07/16/19 08:11 Dose: 0.4 mg Documented by: Vancomycin HCl (Vancomycin Hcl) 500 mg PO Q6 LUNA Stop: 07/26/19 05:59 Last Admin: 07/17/19 06:33 Dose: 500 mg Documented by: Resident Activity Tracking Resident Involvement: Resident Care Provided Care Provided: Adult Hospital Medicine
[2019-07-17] MEDS ORDERED: ALBUMIN 25% 50 ML IV SCH ×4 (08:00→20:00)
[2019-07-17] MEDS: METOPROLOL TARTRATE 25 MG TAB PO SCH ×2 (08:31→20:46)
[2019-07-17] MEDS: ATOVAQUONE 750 MG/5 ML UDC PO SCH (08:31)
[2019-07-17] MEDS: FLUCONAZOLE 100 MG TAB PO SCH (08:31)
[2019-07-17] MEDS: TAMSULOSIN HCL 0.4 MG CAP PO SCH (08:31)
[2019-07-17] MEDS: FAMOTIDINE 20 MG in SYRINGE 3 ML IV SCH (08:32)
[2019-07-17] MEDS: ACYCLOVIR 200 MG CAP PO SCH ×2 (08:32→20:46)
[2019-07-17] MEDS: MAGNESIUM OXIDE 400 MG TAB PO SCH (08:33)
[2019-07-17] MEDS ORDERED: VANCOMYCIN HCL 1,250 MG in SODIUM CHLORIDE 0.9% 250 ML IV SCH (09:00)
[2019-07-17] MEDS ORDERED: DEXTROSE 50% 50 ML SYRINGE IV PRN (09:15)
[2019-07-17] MEDS ORDERED: GLUCOSE 10 TABS/TUBE PO PRN (09:15)
[2019-07-17] MEDS ORDERED: GLUCOSE 40% GEL 15 GM TUBE PO PRN (09:15)
[2019-07-17] MEDS ORDERED: CARBOHYDRATES FOR HYPOGLYCEMIA PO PRN (09:15)
[2019-07-17] MEDS ORDERED: GLUCAGON FOR INJ 1 MG VIAL IM PRN (09:15)
--- NOTE | 2019-07-17 09:46 | Infectious Disease Consult ---
Date of Consultation July 17, 2019 Assessment & Plan (1) C. difficile colitis: consider change to dificid. agree with systemic abx pending culture results. unclear if leukocytosis related to infection alone or combo with underlying AML. would consider repating abd imaging and surgical eval if worsening colitis. History of Present Illness Attending Physician: Charan Ding pt admitted with fever of 103 at home. has AML, treated at [facility], was recently there. in ER found to have temp 39.7, CT abd with colitis, C diff +, on po vanco. also had CT chest, pericardial effusion, transfer to [facility] attempted however transport refused to move patient due to fever. He had cardio eval, pericardial window, cultures pending. blood cultures negative, wbc was in 30's on admission, no 64. Pt is on systemic cefepime and vanco, tolerating well. ngt in place. on pressor support. creat 1.9, procalcitonin 28 today. CXR with left effusion. ID consulted for c. diff. Allergies Allergy/AdvReac Type Severity Reaction Status Date / Time Bactrim Allergy Unknown RASH Verified 04/06/16 11:37 sulfamethoxazole Allergy Unknown RASH Verified 07/15/19 12:26 trimethoprim Allergy Unknown RASH Verified 07/15/19 12:26 Home Medications Home Medications Medication Instructions Recorded Confirmed Type tamsulosin 0.4 mg capsule 0.4 mg PO QAM cap 12/12/18 07/15/19 History acyclovir 200 mg PO BID 07/15/19 07/15/19 History atovaquone 1,500 mg PO DAILY 07/15/19 07/15/19 History calcium carbonate-vitamin D3 1 cap PO BID 07/15/19 07/15/19 History [Calcium 600 + D(3)] enasidenib [Idhifa] 100 mg PO QAM 07/15/19 07/15/19 History fluconazole 200 mg PO QAM 07/15/19 07/15/19 History magnesium oxide 400 mg PO QAM 07/15/19 07/15/19 History metoprolol tartrate 12.5 mg PO BID 07/15/19 07/15/19 History Patient History Medical History Anemia BPH with urinary obstruction Diverticular disease Gross hematuria Hypertension Internal hemorrhoid (Resolved) Kidney stones Osteoporosis (Chronic) SNHL (sensorineural hearing loss) Testicular cancer (Resolved) Tubular adenoma of colon Vertebral compression fracture (Resolved) Vitamin D deficiency Surgical History History of cholecystectomy History of colonoscopy History of herniorrhaphy BL INGUINAL History of orchiectomy History of total hip arthroplasty RIGHT JOSE Status post orchiopexy Family History Mother Breast cancer Family/Other Colorectal cancer Brother Dementia Heart disease Cancer Laryngeal Father Stroke Social History Preferred Language: Lao Communication Ability: Effective Visual Impairment: No Limitations Hearing Ability: Hard of Hearing Instructor Military Science Required: No Beliefs That Will Affect Care: None marital status: Current Living Situation: Spouse current occupational status: employed current occupation: Retail Other Information That Helps Us Care for You: No Feels Safe at Home: Yes Safety Concerns: Feels Safe At This Time Smoking Status: Never smoker Second Hand Exposure: No ; Hx Alcohol Use: No Hx Substance Use: No Review of Systems Review of Systems: Unobtainable due to cognitive status Physical Exam Constitutional: + ill appearing Eyes: PERRL, conjunctivae normal, anicteric sclerae ENMT: external ear and nose normal, oropharynx normal Neck: normal visual inspection Respiratory: normal respiratory effort, lungs clear to auscultation Auscultation: + diminished lung sounds and + rhonchi Cardiovascular: RRR, no murmur, no edema Gastrointestinal (Abdomen): Inspection/Auscultation: + abdomen distended Percussion/Palpation: abdomen nontender, no guarding and abdomen not rigid Musculoskeletal: Head/Neck/Chest: normocephalic and head atraumatic Skin: no rashes, warm and dry Psychiatric: A+Ox3, euthymic affect Results & Data ([facility]) Vital Signs (Past 12 Hours) Vital Signs Pulse Resp BP Pulse Ox 07/17/19 06:00 120 H 30 H 124/63 91 07/17/19 05:00 108 H 28 H 93 07/17/19 04:00 124 H 28 H 124/93 94 07/17/19 03:00 127 H 27 H 128/93 93 07/17/19 02:00 122 H 32 H 146/91 H 91 07/17/19 01:00 123 H 27 H 134/73 94 07/17/19 00:00 121 H 22 132/79 92 07/16/19 23:00 123 H 31 H 102/73 91 07/16/19 22:00 122 H 28 H 91/58 L 95 PG Care Time/CCT Total # of Minutes Spent Total Time Spent with Patient: Total time spent is greater than 50% in coordination of care (as documented) at patient's floor/unit and/or counseling patient: Coding Level of Care Code 11623 Inpt Consult Level 4 Diagnoses C. difficile colitis A04.72
[2019-07-17] MEDS ORDERED: FLUDROCORTISONE ACETATE 0.1 MG TAB PO SCH (10:45)
[2019-07-17] MEDS: CALCIUM 600MG + VIT D 400 IU TAB PO SCH ×2 (10:53→20:46)
[2019-07-17] MEDS: ALBUMIN 25% 50 ML IV SCH ×7 (10:55→20:46)
[2019-07-17] MEDS ORDERED: HYDROCORTISONE SOD 50 MG in SYRINGE 0 ML IV SCH (11:00)
--- NOTE | 2019-07-17 11:07 | XRay Report ---
KUB HISTORY: C. Difficile colitis. COMPARISON: KUB 02/21/2018. FINDINGS: The bowel gas pattern is unremarkable. There are no dilated loops of small bowel to suggest an obstruction. A left ureteral stent has been removed. No definite renal or ureteral calculi. Naso gastric tube terminates in the stomach. Prior cholecystectomy. Small pericardial catheter is noted. S mall left pleural effusion persists. Right total hip arthroplasty. Mild periprosthetic lucency surrou nding the femoral component. This may represent loosening. No pneumoperitoneum or pneumatosis. IMPRESSION: 1. No dilated loops of bowel to suggest an obstruction. 2. No evidence for colonic distention. 3. Nasogastric tube terminates in the stomach. 3. A pericardial catheter is noted. ACT 112: Negative or not required by law. Electronically signed by: Chandana Redding M.D. 07/17/2019 11:06 AM
[2019-07-17] MEDS: INSULIN ASPART 100 UNITS/ML 3 ML PEN SC SCH ×3 (12:38→20:46)
[2019-07-17] MEDS ORDERED: LEVOFLOXACIN/D5W 750 MG/150 ML BAG IV SCH (13:00)
[2019-07-17] MEDS ORDERED: NORMOSOL-R 1,000 ML IV ONE (13:34)
[2019-07-17] MEDS ORDERED: CALCIUM CHLORIDE 10% 1,000 MG in SODIUM CHLORIDE 0.9% 50 ML IV STA ×2 (13:46→17:38)
--- NOTE | 2019-07-17 13:54 | Billing Data ---
Date of Service July 17, 2019 Coding Level of Care Code Critical Care 1st 30-74 mins Time Spent (min) 45 Comment 45 minutes critical care managing life-threatening illness
[2019-07-17] MEDS ORDERED: methylPREDNISolone 125 MG in SYRINGE 0 ML IV SCH (14:00)
[2019-07-17] MEDS ORDERED: metroNIDAZOLE 500 MG/100 ML BAG IV SCH (14:00)
--- NOTE | 2019-07-17 14:26 | Cardiology Progress Note ---
Date of Service July 17, 2019 Assessment & Plan (1) Pericardial effusion: The effusion is most likely transudative in nature. No bacterial growth or growth and other cultures. Cytology was negative for malignancy. Hemodynamically he did not improve much with removal. His hemodynamics co ntinued to be tenuous. He did have about 150 cc drainage from his pericardial drain over the past 24 hours. Some of this may have been residual from the procedure yesterday and drain more effectively with repositioning. I think we will monitor him with a drain in place for another 24 hours and hope to remove it tomorrow. Admission and Anticipated Discharge Date Admission Date: July 15, 2019 Subjective This morning the patient did not complain of any specific pain. He denies any back pain he denies any breathing difficulty. Primarily he was hungry. Review of Systems Review of Systems: Per HPI Physical Exam Physical Exam: The patient is alert but did appear confused. HEENT: Pupils are equal and reactive to light and accommodation. Extraocular movements are intact. The sclerae are anicteric. Neuro: Cranial nerves intact Lungs: Tachypneic. Coarse upper airway sounds. Shallow breathing. Cardiac: Heart demonstrates a regular rate and rhythm. Normal S1 and S2. No murmurs on examination. Pulses: The patient has palpable radial pulses bilaterally that are equal in intensity Extremities: There was no evidence of hypoperfusion. There is no cyanosis or clubbing. Minimal edema. Skin: I did not appreciate any rashes on examination today. Results & Data ([facility]) Vital Signs (Past 12 Hours) Vital Signs Temp Pulse Resp BP Pulse Ox 07/17/19 13:38 37.5 C 97 H 30 H 123/84 88 L 07/17/19 13:30 97 H 32 H 88 L 07/17/19 13:15 99 H 31 H 87 L 07/17/19 13:08 97 H 30 H 102/79 86 L 07/17/19 13:00 99 H 31 H 84 L 07/17/19 12:45 98 H 30 H 83 L 07/17/19 12:39 99 H 30 H 84 L 07/17/19 12:38 99 H 26 H 114/95 84 L 07/17/19 12:30 98 H 30 H 83 L 07/17/19 12:08 98 H 29 H 112/88 83 L 07/17/19 12:00 99 H 28 H 80 L 07/17/19 11:38 88 26 H 117/83 86 L 07/17/19 11:30 97 H 31 H 85 L 07/17/19 11:09 99 H 31 H 106/79 07/17/19 11:00 99 H 31 H 07/17/19 10:39 70 28 H 07/17/19 10:30 80 39 H 07/17/19 10:08 96 H 28 H 107/80 07/17/19 10:00 88 29 H 07/17/19 09:38 94 H 28 H 122/83 07/17/19 09:30 112 H 31 H 07/17/19 09:09 123 H 28 H 97/70 L 07/17/19 09:00 123 H 31 H 07/17/19 08:30 24 90 07/17/19 08:00 36.7 C 114 H 34 H 84 L 07/17/19 07:30 127 H 31 H 77 L 07/17/19 07:00 122 H 29 H 91 07/17/19 06:45 116 H 28 H 87 L 07/17/19 06:00 120 H 30 H 124/63 91 07/17/19 05:00 108 H 28 H 93 07/17/19 04:00 124 H 28 H 124/93 94 07/17/19 03:00 127 H 27 H 128/93 93 Laboratory Results Abnormal Lab Results 07/16/19 07/16/19 07/16/19 00:36 13:53 13:54 WBC RBC Hgb Hct MCV MCH MCHC RDW Std Deviation RDW Coeff of Cecilia Plt Count MPV Immature Gran % (Auto) Neut % (Auto) Lymph % (Auto) [place] % (Auto) Eos % (Auto) Baso % (Auto) Reticulocyte % (Auto) 3.3 H Immature Gran # (Auto) Neut # (Auto) Lymph # (Auto) [place] # (Auto) Eos # (Auto) Baso # (Auto) Reticulocyte # 0.10 Absolute Nucleated RBC Nucleated RBC % (auto) Peripher Smr Path Cons ABG pH ABG pCO2 ABG pO2 ABG HCO3 ABG O2 Saturation ABG Base Excess Khoi Test Oxygen Given Sodium Potassium Chloride Carbon Dioxide Anion Gap BUN Creatinine Est Cr Clr Drug Dosing Est GFR ( Amer) Est GFR (Non-Af Amer) BUN/Creatinine Ratio Glucose POC Glucose Lactate Calcium Phosphorus Magnesium Total Bilirubin Direct Bilirubin AST ALT Alkaline Phosphatase Troponin I Total Protein Albumin Procalcitonin Blood Type A Negative Blood Type Recheck Direct Antiglob Test Negative NINA (IgG-AHG) Neg NINA, Polyspecific Neg NINA C3b, C3d 5 Min Neg 07/16/19 07/16/19 07/17/19 13:54 20:13 04:30 WBC 64.42 H* RBC 3.98 L Hgb 12.9 L 14.6 Hct 37.2 L 42.6 MCV 107.0 H MCH 36.7 H MCHC 34.3 RDW Std Deviation 61.6 H RDW Coeff of Cecilia 15.6 H Plt Count 267 MPV 10.5 H Immature Gran % (Auto) 5.8 Neut % (Auto) 86.8 Lymph % (Auto) 1.2 [place] % (Auto) 6.0 Eos % (Auto) 0.0 Baso % (Auto) 0.2 Reticulocyte % (Auto) Immature Gran # (Auto) 3.75 H Neut # (Auto) 55.88 H Lymph # (Auto) 0.80 L [place] # (Auto) 3.89 H Eos # (Auto) 0.00 Baso # (Auto) 0.10 Reticulocyte # Absolute Nucleated RBC 0.17 H Nucleated RBC % (auto) 0.3 Peripher Smr Path Cons ABG pH ABG pCO2 ABG pO2 ABG HCO3 ABG O2 Saturation ABG Base Excess Khoi Test Oxygen Given Sodium Potassium Chloride Carbon Dioxide Anion Gap BUN Creatinine Est Cr Clr Drug Dosing Est GFR ( Amer) Est GFR (Non-Af Amer) BUN/Creatinine Ratio Glucose POC Glucose Lactate Calcium Phosphorus Magnesium Total Bilirubin Direct Bilirubin AST ALT Alkaline Phosphatase Troponin I Total Protein Albumin Procalcitonin Blood Type Blood Type Recheck A Negative Direct Antiglob Test NINA (IgG-AHG) NINA, Polyspecific NINA C3b, C3d 5 Min 07/17/19 07/17/19 07/17/19 04:30 04:30 04:30 WBC RBC Hgb Hct MCV MCH MCHC RDW Std Deviation RDW Coeff of Cecilia Plt Count MPV Immature Gran % (Auto) Neut % (Auto) Lymph % (Auto) [place] % (Auto) Eos % (Auto) Baso % (Auto) Reticulocyte % (Auto) Immature Gran # (Auto) Neut # (Auto) Lymph # (Auto) [place] # (Auto) Eos # (Auto) Baso # (Auto) Reticulocyte # Absolute Nucleated RBC Nucleated RBC % (auto) Peripher Smr Path Cons ABG pH 7.51 H* ABG pCO2 20 L ABG pO2 66 L ABG HCO3 15 L ABG O2 Saturation 94.7 ABG Base Excess -5.0 Khoi Test Pos Oxygen Given 2L Sodium 137 Potassium 5.1 D Chloride 109 H Carbon Dioxide 14 L Anion Gap 14.0 H BUN 39 H D Creatinine 1.94 H D Est Cr Clr Drug Dosing 26.3 Est GFR ( Amer) 38.4 Est GFR (Non-Af Amer) 33.1 BUN/Creatinine Ratio 19.9 Glucose 222 H POC Glucose Lactate Calcium 7.3 L Phosphorus 5.2 H D Magnesium 2.3 Total Bilirubin 2.2 H Direct Bilirubin 0.5 H AST 48 H ALT 30 Alkaline Phosphatase 87 Troponin I 0.130 H* Total Protein 5.8 L Albumin 1.6 L Procalcitonin 28.35 H Blood Type Blood Type Recheck Direct Antiglob Test NINA (IgG-AHG) NINA, Polyspecific NINA C3b, C3d 5 Min 07/17/19 07/17/19 09:23 12:37 WBC RBC Hgb Hct MCV MCH MCHC RDW Std Deviation RDW Coeff of Cecilia Plt Count MPV Immature Gran % (Auto) Neut % (Auto) Lymph % (Auto) [place] % (Auto) Eos % (Auto) Baso % (Auto) Reticulocyte % (Auto) Immature Gran # (Auto) Neut # (Auto) Lymph # (Auto) [place] # (Auto) Eos # (Auto) Baso # (Auto) Reticulocyte # Absolute Nucleated RBC Nucleated RBC % (auto) Peripher Smr Path Cons ABG pH ABG pCO2 ABG pO2 ABG HCO3 ABG O2 Saturation ABG Base Excess Khoi Test Oxygen Given Sodium Potassium Chloride Carbon Dioxide Anion Gap BUN Creatinine Est Cr Clr Drug Dosing Est GFR ( Amer) Est GFR (Non-Af Amer) BUN/Creatinine Ratio Glucose POC Glucose 180 H Lactate 3.1 H* Calcium Phosphorus Magnesium Total Bilirubin Direct Bilirubin AST ALT Alkaline Phosphatase Troponin I Total Protein Albumin Procalcitonin Blood Type Blood Type Recheck Direct Antiglob Test NINA (IgG-AHG) NINA, Polyspecific NINA C3b, C3d 5 Min Diagnostic Findings KUB and chest x-ray obtained today did not reveal any acute findings. PG Care Time/CCT Total # of Minutes Spent Total Time Spent with Patient: Total time spent is greater than 50% in coordination of care (as documented) at patient's floor/unit and/or counseling patient: Coding Level of Care Code 31389 Subseq Hosp Care Lvl 2 Diagnoses Pericardial effusion I31.3
[2019-07-17] MEDS ORDERED: NORMOSOL-R 1,000 ML IV SCH (14:45)
[2019-07-17 16:29] LABS: BUN Creatinine Ratio 21.4 (10-20); Calcium 7.7 mg/dl (8.5-10.1); Est GFR (African American) 34.5; Est GFR (Non-African American) 29.8; Potassium 4.9 mmol/L (3.5-5.1)
[2019-07-17 18:11] LABS: iSTAT Art Bld Gas pCO2 Correct 22 mmHg (35-46); iSTAT Art Bld Gas pH Corrected 7.436 (7.35-7.45); iSTAT Arterial Blood Gas HCO3 15 meg/L (19-24); iSTAT Arterial Blood Gas pCO2 22 mmHg (35-46); iSTAT Arterial Blood Gas pH 7.43 (7.35-7.45); iSTAT Arterial Blood Gas pO2 48 mmHg (80-95); iSTAT Arterial Blood Gas pO2 C 46; iSTAT Carbon Dioxide 15 mmol/L (24-31); iSTAT Hematocrit 36 % (42-52); iSTAT Hemoglobin 12.2 g/dl (14.0-18.0); iSTAT Potassium 4.9 mmol/L (3.3-5.0); iSTAT Site Art Line; iSTAT Sodium 135 mmol/L (135-144)
--- NOTE | 2019-07-17 20:23 | Communication Note ---
Date of Service: July 17, 2019 Shortly after change of shift, the patient's did present at bedside. After lengthy discussion, the patient's does wish to focus on comfort, but did want to discuss things with her daughter. Her daughter is actually in the parking lot. Given the current pandemic and hospital staffing protocols, I did discuss this with the appropriate staff. At this point, I am deeming this and extenuating circumstance as discussions are to be finalized regarding progression towards comfort measures. Patient's daughter present at bedside as well. After conversation, family does wish to proceed with comfort measures only. It was in agreement that we would discontinue all nonessential medications, blood draws, blood pressure monitoring, or invasive monitoring and begin medications for comfort. is requesting something for pain and breathing. I discussed morphine drip and its ramifications including decreased level of consciousness, etc. She is comfortable with this and agrees to proceed. Patient started on morphine drip. Comfort measures orders placed. I have personally spent 35 minutes of critical care time in the direct manageme nt of this patient. This is a life/limb threatening event. This includes time spent evaluating patient, direct bedside care, chart review, placing orders, interpretation of diagnostic studies, discussion with consultants, patient, and family members, as well as other required patient management activities. This time is exclusive of all separately billable procedures, and teaching time and separate from and in addition to any other critical care service time. Coding Level of Care Code Critical Care nava addt'l 30 min Time Spent (min) 35
[2019-07-17] MEDS ORDERED: ATROPINE SULFATE 1% OP SOLN 2 ML BTL SL PRN (20:48)
[2019-07-17] MEDS ORDERED: ONDANSETRON INJ 2 MG/ML 2 ML VIAL IV PRN (20:48)
[2019-07-17] MEDS ORDERED: LORazepam 0.5 MG TAB PO PRN (20:48)
[2019-07-17] MEDS ORDERED: STAT IV Infusion **Titration per Protocol STA (20:48)
[2019-07-17] MEDS ORDERED: ONDANSETRON 4 MG OD TAB SL PRN (20:48)
[2019-07-17] MEDS ORDERED: CEFEPIME 2,000 MG in SYRINGE 7.5 ML IV SCH (21:00)
[2019-07-17] MEDS ORDERED: MoRPHine SULF/NSS 250 MG/250 ML BTL IV SCH (21:00)
[2019-07-17] MEDS ORDERED: HEPARIN SOD 5,000 UNIT/0.5 ML VIAL SQ SCH (21:00)
[2019-07-17] MEDS: LORazepam 0.5 MG/1 ML VIAL IV PRN (21:21)
--- NOTE | 2019-07-17 22:50 | Hospitalist Progress Note ---
Date of Service July 17, 2019 Assessment & Plan (1) Sepsis: with shock earlier as part of initial presentation Uncertain source. Was given approximately 3 L of fluid in the ICU, as well as 300 mg daptomycin, 750 mg levofloxacin, 4.5 g Zosyn -Differential fairly broad, although he has nonspecific appearance --Bacterial infection differentials - blood cultures pending, empiric abx to continue, stool for Cdiff (+) and agree empiric treatment, but would maintain vigilance for other etiologies given his lack of significant increase in diarrhea per (obviously if diarrhea increases here under observation that would more or less clinch this as dx, and certainly w his AML/etc it is quite plausible, but would want a little more clinical parameters to support this before excluding other differentials) - rise in procal overnight does raise potential for bacterial - continue empiric abx. --Viral infection seems quite probable. I have seen other cases of leukocytosis, fever, and malaise that with hindsight appeared to be a nondescript viral syndrome. His flu is negative. The transport team from [place] raised the question of COVID19, he does not have current "classic" risk factors, but even paying attention to the possibility of community spread, he has no known sick contacts, and while he has a fever, he has no ongoing cough/shortness of breath/characteristic lung findings on x-ray or CT, so it seems fairly unlikely in that respect. I would suspect a mono-like virus as a potential vector - that said, for now airborne precautions have been initiated, continue vigilance for all vectors --Septic appearance from the AML is certainly of concern as well, he appears to have stabilized right now, his personal care service provider was willing to see him in [place] but we are unable to get transport, hematology aware of his situation here. Certainly the pericardial effusion is concerning to be related to AML until proven otherwise ---> Empiric antibiotics and fluid support, per ICU discretion (2) Pericardial effusion: No tamponade, concern AML related, cardiology has seen, thoracic surgery has evaluated films - pending more formal input (3) Acute myelogenous leukemia: Hematology following (4) Hypokalemia: Replete per ICU protocol (5) Elevated serum creatinine: Almost certainly from being dehydrated, IV fluids - continue to follow (6) Dehydration: See above (7) Pleural effusion: Concern would be AML related, see above (8) Osteoporosis: (9) DVT prophylaxis: Per ICU (10) Discharge planning issues: Admit to ICU for now (11) Anemia: Appears to be fairly stable, his hemoglobin on 226 was 10.3 (12) Elevated brain natriuretic peptide (BNP) level: No clinical appearance of CHF, possibly related to the effusion, possibly related to age, possibly related to his elevated creatinine (13) Elevated bilirubin: Continue to follow closely, concern if this would relate to the AML. Check LDH (14) Hypoalbuminemia: As above, follow. Admission and Anticipated Discharge Date Admission Date: July 15, 2019 Subjective To preserve PPE, patient was seen through doorway. Primary management by Intensive Care at the moment. Review of Systems Review of Systems: Other unable to obtain PG Care Time/CCT Total # of Minutes Spent Total Time Spent with Patient: Total time spent is greater than 50% in coordination of care (as documented) at patient's floor/unit and/or counseling patient: Coding Level of Care Code None Diagnoses Sepsis A41.9 Pericardial effusion I31.3 Acute myelogenous leukemia C92.00 Leukemia Active/Remission status: without remission Hypokalemia E87.6 Elevated serum creatinine R79.89 Dehydration E86.0 Pleural effusion J90 Osteoporosis M80.80XD Encounter type: subsequent encounter Fracture healing: with routine healing Osteoporosis type: other Presence of current pathological fracture: with current pathological fracture DVT prophylaxis Z29.9 Discharge planning issues Z02.9 Anemia D64.9 Elevated brain natriuretic peptide (BNP) level R79.89 Elevated bilirubin R17 Hypoalbuminemia E88.09 (1) Acute myelogenous leukemia Leukemia Active/Remission status: without remission Qualified Code(s): C92.00 - Acute myeloblastic leukemia, not having achieved remission (2) Osteoporosis Encounter type: subsequent encounter Fracture healing: with routine healing Osteoporosis type: other Presence of current pathological fracture: with current pathological fracture Qualified Code(s): M80.80XD - Other osteoporosis with current pathological fracture, unspecified site, subsequent encounter for fracture with routine healing
[2019-07-18] MEDS: LORazepam 0.5 MG/1 ML VIAL IV PRN (01:31)
[2019-07-18] MEDS ORDERED: ALBUMIN 25% 50 ML IV SCH ×4 (02:00→14:00)
--- NOTE | 2019-07-18 04:57 | Death Pronouncement Note ---
Date of Service July 18, 2019 Date: 1945 Time: 044 I was contacted by nursing staff regarding the patients declining status and concerns for imminent demise. In short, patient was initially admitted with sepsis syndrome. On initial assessment, the patient was noted to have C. difficile colitis which is likely the culprit of the patient's significant leukocytosis, lactic acidosis, and febrile state. Throughout the patient's stay, he is now progressed into acute renal failure with oliguria and worsening respiratory status secondary to volume overload. In conversation with family, they wish to proceed with comfort measures only at this time. Patient ceased to breathe at 0444 Assessment: I presented to the patients room for evaluation. Upon assessment, the patient was found to be in a terminal state. Pupils were fixed and dilated without response. No palpable pulses appreciated. No spontaneous breaths noted. Heart sounds were absent. No response to painful stimuli. Time of : 443 as pronounced by myself. Family present at bedside. Appropriate response to grief appreciated. Condolences provided. Questions were addressed and emotional support was provided. Patients primary service was contacted and made aware of patient demise. Pronouncement section of the Certificate was filled out and signed by myself. Cause of : Primary - Severe Sepsis with Septic Shock Secondary - C. Diff, ARF, Respiratory Failure Contributing Causes of - AML Please feel free to contact me with any questions regarding the above-mentioned course. Pronouncement Note Admission Date Admission Date: July 15, 2019 Contributing Factors (1) Sepsis: (2) Pericardial effusion: (3) Acute myelogenous leukemia: (4) Hypokalemia: (5) Elevated serum creatinine: (6) Dehydration: (7) Pleural effusion: (8) Osteoporosis: (9) DVT prophylaxis: (10) Discharge planning issues: (11) Anemia: (12) Elevated brain natriuretic peptide (BNP) level: (13) Elevated bilirubin: (14) Hypoalbuminemia: Additional Data Attending physician: Charan Ding Coding Diagnoses Sepsis A41.9 Pericardial effusion I31.3 Acute myelogenous leukemia C92.00 Leukemia Active/Remission status: without remission Hypokalemia E87.6 Elevated serum creatinine R79.89 Dehydration E86.0 Pleural effusion J90 Osteoporosis M80.80XD Osteoporosis type: other Presence of current pathological fracture: with current pathological fracture Encounter type: subsequent encounter Fracture healing: with routine healing DVT prophylaxis Z29.9 Discharge planning issues Z02.9 Anemia D64.9 Elevated brain natriuretic peptide (BNP) level R79.89 Elevated bilirubin R17 Hypoalbuminemia E88.09
[2019-07-18] MEDS ORDERED: FLUDROCORTISONE ACETATE 0.1 MG TAB PO SCH (09:00)
[2019-07-18] MEDS ORDERED: FAMOTIDINE 20 MG in SYRINGE 3 ML IV SCH (09:00)
[2019-07-18 11:49] LABS: iSTAT Hematocrit 30 % (42-52); iSTAT Hemoglobin 10.2 g/dl (14.0-18.0); iSTAT Sodium 144 mmol/L (135-144)
[2019-07-18 11:50] LABS: iSTAT Art Bld Gas pCO2 Correct 28 mmHg (35-46); iSTAT Art Bld Gas pH Corrected 7.439 (7.35-7.45); iSTAT Arterial Blood Gas HCO3 19 meg/L (19-24); iSTAT Arterial Blood Gas pCO2 26 mmHg (35-46); iSTAT Arterial Blood Gas pH 7.46 (7.35-7.45); iSTAT Arterial Blood Gas pO2 80 mmHg (80-95); iSTAT Arterial Blood Gas pO2 C 87; iSTAT Carbon Dioxide 19 mmol/L (24-31)
[2019-07-18 11:51] LABS: Patient Temperature 38.3; iSTAT Allen Test Acceptable; iSTAT Sample Type Arterial; iSTAT Site Art Line
[2019-07-18 11:52] LABS: iSTAT SpO2 95
[2019-07-18 16:24] LABS: CMV IgM Antibody 72.8 AU/mL
[2019-07-19 16:10] LABS: CMV DNA PCR Qual NOT DETECTED; Source Whole Blood
[2019-07-19 22:30] LABS: Pericardial Fld,Total Protein 3.9 g/dL; Pericardial Fluid, Albumin 2.4 g/dL
[2019-07-19 22:34] LABS: CEA, Pleural Fluid <0.5 ng/mL (<10.0); Pleural Fluid, Cholesterol 35 mg/dL
--- NOTE | 2019-07-24 19:03 | Discharge Summary ---
Date of Service July 18, 2019 Admission HPI Per Admitting Provider Patient is a pleasant 73-year-old male, he is very fatigued, the history is partly from him but heavily from his and a little bit from his daughter on speaker phone. He has had a long journey with AML, having had the better part of 2 years consumed with management of this. During that time it sounds like he is gotten significantly weaker, has a degree of chronic diarrhea, and a degree of a chronic cough. He has been weaker over the last 5 to 7 days, having had 2 falls, one resulting in a skin tear in his left arm and one with bruised ribs (although it is not entirely clear, they may have been from the same fall), but at any rate he has been getting weaker and had a few falls. Otherwise he was getting around okay in his house with his walker. Last night he seemed okay, his does note that he had a bit of a coughing fit before bed, brought up some sputum, but after that seemed fine. He slept through the night only waking once or twice to void, absolutely no coughing through the night, seem to have slept well. This morning his noticed that he looked flushed, felt his head and he felt warm, she checked his temperature and it was 103. He was weak and reasonably lethargic, with absolutely no focal symptoms. They brought him to the ER for further evaluation and management. Here he has been given fluids, antibiotics, given his AML there was attempt to transfer him to [place], but because of his fever, while the physicians at [place] seem to have accepted him, transport was refused out of COVID19 concerns simply because of his fever. Patient himself is very little as far as focal complaints, he recalls feeling febrile, he notes that he feels weak. He had a coughing fit last night but has not coughed since, and the entire time I am in the room he does not cough once. He has no chest pain (save for the rib pain from his fall which is been going on for about 5 days), no shortness of breath, no upper abdominal pain, nausea or vomiting. His appetite has been reasonable this week, today he has not eaten much but that is because he has been in the ER all day, he is hungry. He has had no lower abdominal pain, he has diarrhea 2-3 episodes a day but that has been the case for quite a while and nothing is new different or worse about it. He has not had black or bloody stools. Only the fever today, not prior. No overt chills or sweats. His has been taking care of him, she has not been sick, his daughter who works at [email or web address] to help take care of him since Wednesday, she has not been sick. There have been no other sick contacts. He was just at [facility] 2 weeks ago, I will ask that the most recent progress note get scanned into the chart, but of note his white count then was 6.72 hemoglobin 10.3 platelets 159 creatinine 0.94 albumin 3.6 total protein 6.8. At that time they were to continue him on Enasidenib 50mg daily, and were continuing to hold tacrolimus since it had been stopped in February. They wondered if he had mild [id number] but felt that he should continue to hold off on tacrolimus to allow continued GVL affect. They were planning on continuing to see him once every 2 weeks. In discussion with cardiology, echocardiogram did show effusion but no tamponade, in discussion with thoracic surgery, the concern is that the tamponade is probably AML related, but should be easy to approach surgically. We were asked to admit to the ICU, I discussed the case with ICU attending prior to my seeing the patient. Principal Diagnosis Sepsis Discharge Exam Examined completed by Tre Rosenbaum. Please refer to Note Discharge Data Allergies Allergy/AdvReac Type Severity Reaction Status Date / Time Bactrim Allergy Unknown RASH Verified 04/06/16 11:37 sulfamethoxazole Allergy Unknown RASH Verified 07/15/19 12:26 trimethoprim Allergy Unknown RASH Verified 07/15/19 12:26 Consultations 07/15/19 17:18 ED Decision to Admit Stat 07/15/19 18:14 Consult Thoracic Surgery Routine 07/15/19 20:34 Consult Case Management - Discharge Planning Routine Consult Hematology Routine Consult Frequency Checker Routine 07/16/19 12:45 Consult Infectious Diseases Routine 07/17/19 20:49 Consult Case Management - Discharge Planning Routine Consult Palliative Care Routine Procedures Performed Operation Date: 07/16/19 11:30 Actual Procedures p Pericardiocentesis Initial - Constantino Jade MD Ordered Studies 07/15/19 US point of care ultrasound Urgent 07/15/19 10:40 CT head/brain wo con Stat 07/15/19 10:53 CT abd pelvis IV con only Stat 07/15/19 11:13 CT angio chest PE protocol Stat 07/15/19 22:07 US point of care ultrasound Urgent 07/16/19 11:27 CL Cath Imgs for PACS use only Stat Hospital Course (1) Sepsis: with shock earlier as part of initial presentation Uncertain source. Was given approximately 3 L of fluid in the ICU, as well as 300 mg daptomycin, 750 mg levofloxacin, 4.5 g Zosyn -Differential fairly broad, although he has nonspecific appearance --Bacterial infection differentials - blood cultures pending, empiric abx to continue, stool for Cdiff (+) and agree empiric treatment, but would maintain vigilance for other etiologies given his lack of significant increase in diarrhea per (obviously if diarrhea increases here under observation that would more or less clinch this as dx, and certainly w his AML/etc it is quite plausible, but would want a little more clinical parameters to support this before excluding other differentials) - rise in procal overnight does raise potential for bacterial - continue empiric abx. --Viral infection seems quite probable. I have seen other cases of leukocytosis, fever, and malaise that with hindsight appeared to be a nondescript viral syndrome. His flu is negative. The transport team from [place] raised the question of COVID19, he does not have current "classic" risk factors, but even paying attention to the possibility of community spread, he has no known sick contacts, and while he has a fever, he has no ongoing cough/shortness of breath/characteristic lung findings on x-ray or CT, so it seems fairly unlikely in that respect. I would suspect a mono-like virus as a potential vector - that said, for now airborne precautions have been initiated, continue vigilance for all vectors --Septic appearance from the AML is certainly of concern as well, he appears to have stabilized right now, his desk maker was willing to see him in [place] but we are unable to get transport, hematology aware of his situation here. Certainly the pericardial effusion is concerning to be related to AML until proven otherwise ---> Empiric antibiotics and fluid support, per ICU discretion Overnight, family discussed with slasher hand. And patient became SMALL BUSINESS DIRECTOR. Patient on 07/17. (2) Pericardial effusion: No tamponade, concern AML related, cardiology has seen, thoracic surgery has evaluated films - pending more formal input (3) Acute myelogenous leukemia: Hematology following (4) Hypokalemia: Replete per ICU protocol (5) Elevated serum creatinine: Almost certainly from being dehydrated, IV fluids - continue to follow (6) Dehydration: See above (7) Pleural effusion: Concern would be AML related, see above (8) Osteoporosis: (9) DVT prophylaxis: Per ICU (10) Discharge planning issues: Admit to ICU for now (11) Anemia: Appears to be fairly stable, his hemoglobin on 226 was 10.3 (12) Elevated brain natriuretic peptide (BNP) level: No clinical appearance of CHF, possibly related to the effusion, possibly related to age, possibly related to his elevated creatinine (13) Elevated bilirubin: Continue to follow closely, concern if this would relate to the AML. Check LDH (14) Hypoalbuminemia: As above, follow. Total Time Total Time Spent Total Time Spent (In Minutes): <30 mins Discharge Plan Discharge Items Patient Disposition: Reason For Visit: FEVER HYPOTENSION Follow-up/Referrals: Dustin Butt MD [Primary Care Provider] - Admission Data Admit Date/Time: 07/15/19 18:51 Other DC Date/Time DO NOT enter until pt leaves facility: 07/18/19 04:44 Coding Level of Care Code None Diagnoses Sepsis A41.9 Pericardial effusion I31.3 Acute myelogenous leukemia C92.00 Leukemia Active/Remission status: without remission Hypokalemia E87.6 Elevated serum creatinine R79.89 Dehydration E86.0 Pleural effusion J90 Osteoporosis M80.80XD Osteoporosis type: other Presence of current pathological fracture: with current pathological fracture Encounter type: subsequent encounter Fracture healing: with routine healing DVT prophylaxis Z29.9 Discharge planning issues Z02.9 Anemia D64.9 Elevated brain natriuretic peptide (BNP) level R79.89 Elevated bilirubin R17 Hypoalbuminemia E88.09
== END 2019-07-18 04:44 | disposition expired | DRG 871 ==
LOC: ED 10:30 → 1E 18:51 → SUATTDRO 18:51 → 1E 19:20